=== PATIENT | male | born 1970 | race Caucasian/White ===

== ENCOUNTER 2023-10-13 20:21 | Inpatient (IN) | payer OTHER, SELFPAY ==
[2023-10-13] VITALS (10 sets, daily range): BP systolic 92–175; BP diastolic 66–82; BMI 36.5
--- NOTE | 2023-10-13 17:23 | ED.GENMED ---
History of Present Illness
<Linda Hyatt DRIER TRANSFER CAR OPERATOR - Last Filed: 10/13/23 21:42>
General
Chief Complaint: Breathing Problem
Source: patient
Exam Limitations: none
Time Seen by Provider: 10/13/23 17:23
Nursing documentation reviewed up to this point in time: agreed with
Travel History
Have you had any contact with someone who has COVID-19?: No
Do you have any symptoms of coronavirus? Fever > 100 degrees, chills, cough, shortness of breath, sore throat, loss of taste or smell, muscle aches, or headache?: No
History of Present Illness
History of Present Illness:
53-year-old male with history of HTN, HLD, alcohol induced hepatitis, thrombocytopenia, presents from his first visit to pulmonology Dr. Reyes's office for 7 weeks of cough and 5 weeks of shortness of breath. Hypoxemia. He states cough has been
nonproductive. 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 Denies fever, CP, abdominal pain. Has noted mild swelling right calf past week.
Past History
<Linda Hyatt DRIER TRANSFER CAR OPERATOR - Last Filed: 10/13/23 21:42>
Past History
ED Past Medical History: HTN
ED Past Surgical History: Orthopedic
Review of Systems
<Linda Hyatt DRIER TRANSFER CAR OPERATOR - Last Filed: 10/13/23 21:42>
Review of Systems
Allergies reviewed?: Yes
All Other Systems: ROS reviewed and negative except as documented in HPI and ROS
Constitutional: Denies fever
Respiratory: Reports cough and trouble breathing
Cardiac: Denies chest pain
ABD/GI: Denies abdominal pain or nausea
Musculoskeletal: Reports no symptoms
Skin: Reports no symptoms
Neurological: Reports no symptoms
Phy Exam
<Linda Hyatt DRIER TRANSFER CAR OPERATOR - Last Filed: 10/13/23 21:42>
Physical Exam
Physical Exam:
GENERAL: No acute distress. A&Ox3.
CONSTITUTIONAL: Afebrile.
EYES: clear, conjunctivae normal
ENMT: moist mucus membranes, Pharynx nl
RESPIRATORY: Regular respirations, nonlabored, Left lung CTA, absent BS R lung. Pulse ox 93% RA
CARDIOVASCULAR: Regular rate and rhythm, no murmurs, no rubs.
GI: Soft, nontender, normal BS
MUSCULOSKELETAL: Moves with ease. Well perfused. Patient
SKIN: Warm, dry, pink
PSYCH: Normal mood and affect. Well kept, interactive and appropriate
NEUROLOGIC: Awake, alert and oriented. No focal neurological deficits
Scores
<Linda Hyatt, DRIER TRANSFER CAR OPERATOR - Last Filed: 10/13/23 21:42>
Heart Failure Risk
Heart Failure Risk Score: Not Applicable
Course
<Linda Hyatt, DRIER TRANSFER CAR OPERATOR - Last Filed: 10/13/23 21:42>
Orders/Labs/Results
Orders:
Orders
10/13/23 17:37
0.9% Sodium Chloride 1000 ml [Nss] 1,000 ml IV BOLUS
10/13/23 17:44
CR Chest Portable - 1 View Urgent
Comment:
Reason For Exam: no BS right lung
Reason Study Needs to be Portable: Patient Unstable
10/13/23 17:45
US Periph Venous LOWER Ext RT Urgent
Comment:
Reason For Exam: swellilng, SOB
10/13/23 17:47
Complete Blood Count/With Diff Urgent
Comprehensive Metabolic Panel Urgent
PTT Urgent
Prothrombin Time Urgent
10/13/23 17:48
CT Chest Pe Study Urgent
Comment:
Reason For Exam: SOB, R lung ketty out, R calf swelling, hypoxia
10/13/23 18:10
0.9% Sodium Chloride 500 ml [Nss] 500 ml IV BOLUS
10/13/23 20:01
Admit/Transfer Patient As Directed
Co-Sign Provider:
Level of Care: Inpatient admission
Assign to:: IMU- Intermediate Care
Physician / Group: [place]
Diagnosis: Large R Pleural Effusion
Reason for Hospitalization: Large R Pleural Effusion
Expected length of stay greater than two midnights?: Yes
ELOS- Estimated Length of Stay in days: 2
I certify the patient meets the requirements for IP care: Yes
10/13/23 20:14
Code Status As Directed
Resuscitation Status: Full Code
10/16/23 11:00
DC Protocol for Telemetry ONCE
Abnormal Lab Results
10/13/23
17:47
RBC 3.80 L 10^6/uL
(4.70-6.10)
Hct 36.5 L %
(39.0-52.0)
MCV 96.1 H fL
(80.0-94.0)
MCH 34.7 H pg
(27.0-31.0)
RDW 15.6 H %
(11.5-14.5)
Plt Count 78 L 10^3/uL
(130-400)
Monocytes % 9.8 H %
(1.7-9.3)
PT 23.0 H Sec
(11.4-14.6)
APTT 42.4 H Sec
(23.4-35.0)
Creatinine 0.6 L mg/dL
(0.7-1.3)
Total Bilirubin 5.2 H mg/dl
(0.2-1.3)
AST 89 H U/L
(17-59)
ALT 51 H U/L
(0-50)
Alkaline Phosphatase 155 H U/L
(38-126)
Total Protein 8.3 H g/dl
(6.3-8.2)
Albumin 3.3 L g/dl
(3.5-5.0)
10/13/23 17:47
10/13/23 17:47
Vital Signs
Initial and Last Documented VS:
Initial Vital Signs
Temp Pulse Resp BP Pulse Ox
98.4 F 95 18 153/79 93
10/13/23 17:15 10/13/23 17:15 10/13/23 17:15 10/13/23 17:15 10/13/23 17:15
Last Documented Vital Signs
Temp Pulse Resp BP Pulse Ox
97.4 F 96 30 141/77 96
10/13/23 20:41 10/13/23 21:25 10/13/23 21:25 10/13/23 21:25 10/13/23 21:25
Corporate Legal Secretary consulted with Physician
Corporate Legal Secretary consulted with physician?: Yes
Name of Physician Consulted: Jayesh
<Gurinder Mcconnell MD - Last Filed: 10/13/23 19:41>
Orders/Labs/Results
Orders:
Orders
10/13/23 17:37
0.9% Sodium Chloride 1000 ml [Nss] 1,000 ml IV BOLUS
10/13/23 17:44
CR Chest Portable - 1 View Urgent
Comment:
Reason For Exam: no BS right lung
Reason Study Needs to be Portable: Patient Unstable
10/13/23 17:45
US Periph Venous LOWER Ext RT Urgent
Comment:
Reason For Exam: swellilng, SOB
10/13/23 17:47
Complete Blood Count/With Diff Urgent
Comprehensive Metabolic Panel Urgent
PTT Urgent
Prothrombin Time Urgent
10/13/23 17:48
CT Chest Pe Study Urgent
Comment:
Reason For Exam: SOB, R lung ketty out, R calf swelling, hypoxia
10/13/23 18:10
0.9% Sodium Chloride 500 ml [Nss] 500 ml IV BOLUS
10/13/23 20:01
Admit/Transfer Patient As Directed
Co-Sign Provider:
Level of Care: Inpatient admission
Assign to:: IMU- Intermediate Care
Physician / Group: [place]
Diagnosis: Large R Pleural Effusion
Reason for Hospitalization: Large R Pleural Effusion
Expected length of stay greater than two midnights?: Yes
ELOS- Estimated Length of Stay in days: 2
I certify the patient meets the requirements for IP care: Yes
10/13/23 20:14
Code Status As Directed
Resuscitation Status: Full Code
10/16/23 11:00
DC Protocol for Telemetry ONCE
Abnormal Lab Results
10/13/23
17:47
RBC 3.80 L 10^6/uL
(4.70-6.10)
Hct 36.5 L %
(39.0-52.0)
MCV 96.1 H fL
(80.0-94.0)
MCH 34.7 H pg
(27.0-31.0)
RDW 15.6 H %
(11.5-14.5)
Plt Count 78 L 10^3/uL
(130-400)
Monocytes % 9.8 H %
(1.7-9.3)
PT 23.0 H Sec
(11.4-14.6)
APTT 42.4 H Sec
(23.4-35.0)
Creatinine 0.6 L mg/dL
(0.7-1.3)
Total Bilirubin 5.2 H mg/dl
(0.2-1.3)
AST 89 H U/L
(17-59)
ALT 51 H U/L
(0-50)
Alkaline Phosphatase 155 H U/L
(38-126)
Total Protein 8.3 H g/dl
(6.3-8.2)
Albumin 3.3 L g/dl
(3.5-5.0)
10/13/23 17:47
10/13/23 17:47
Vital Signs
Initial and Last Documented VS:
Initial Vital Signs
Temp Pulse Resp BP Pulse Ox
98.4 F 95 18 153/79 93
10/13/23 17:15 10/13/23 17:15 10/13/23 17:15 10/13/23 17:15 10/13/23 17:15
Last Documented Vital Signs
Temp Pulse Resp BP Pulse Ox
97.4 F 96 30 141/77 96
10/13/23 20:41 10/13/23 21:25 10/13/23 21:25 10/13/23 21:25 10/13/23 21:25
<Linda Hyatt DRIER TRANSFER CAR OPERATOR - Last Filed: 10/13/23 21:42>
MDM/Problems Addressed
Differential Diagnosis Includes:
Pneumothorax, PE, PNA, DVT
MDM/Problems Addressed:
53-year-old male with history of HTN, HLD alcohol induced hepatitis, thrombocytopenia, presents from his first visit to pulmonology Dr. Reyes's office for 7 weeks of cough and 5 weeks of shortness of breath. Hypoxemia. He states cough has been
nonproductive. 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 Denies fever, CP, abdominal pain. Has noted mild swelling right calf past week.
Afebrile
Absent BS right lung
Pulse ox 93% RA placed on 2 L nasal cannula
Portable CXR: Right lung ketty out. No pneumothorax.
CBC: No clinically significant abnormality. Consistent with his baseline thrombocytopenia
CMP: No clinically significant abnormality. Consistent with his previous mild elevation of liver enzymes
6:55 PM radiologist texted: 'the CT of the chest is nondiagnostic for PE. He can�t hold his breath. If that massive right floor of fusion gets drained, and there is still high clinical concern for PE, can repeat the study then, when he might be able
to hold his breath.'
7:04 pm
IR notified of need to drain this significant pleural effusion
Hospitalist notified of admission.
<Linda Hyatt, DRIER TRANSFER CAR OPERATOR - Last Filed: 10/13/23 21:42>
*Critical Care Note
Total Time (30-74mins, 75-104mins- exclusive of procedures): Not Applicable
ED Attending Note
<Linda Hyatt, DRIER TRANSFER CAR OPERATOR - Last Filed: 10/13/23 21:42>
-
Portions of this chart may have been created with voice recognition software.� Occasional wrong word or��sound alike� substitutions may have occurred due to the inherent limitations of voice recognition software.
<Gurinder Mcconnell MD - Last Filed: 10/13/23 19:41>
ED Attending Note
Patient seen and examined by attending physician: Yes
I performed the substantive portion of visit, reviewed & personally made and approve the management plan that is documented in note by myself or EUGENIO.: Yes
ED Attending Note:
Patient presents with shortness of breath ongoing for months. Saw pulmonary today. Decreased breath sounds in the right sent for further evaluation. Also right leg swelling. On exam patient is nontoxic however room air pulse ox 91 to 92%. He
has no breath sounds on the right. He has mild right leg swelling no warmth or erythema. Heart regular rate and rhythm.
First concern was effusion versus pneumothorax. Chest shows a large complete opacification of the right lung consistent with a large effusion. CT scan was ordered which showed a large effusion. Leg ultrasound was also ordered. Discussed with IR
who will come in for chest thoracentesis. Admission to hospitalist.
Discharge Plan
Departure
Patient Disposition: Admit
Date of Disposition: 10/13/23
Time of Disposition: 18:53
Presentation/result/management discussed w/ accepting MD/DO: Hospitalist
Condition: Serious
Discharge Problem:
Pleural effusion on right, Cirrhosis of liver
Interventions
Interventions:
*Risk Screen - Suicide Last Done: 10/13/23 17:21
*General Assessment Last Done: 10/13/23 17:54
*Neglect/Abuse Screening Last Done: 10/13/23 17:21
*ED COVID-19 Vaccine History Last Done: 10/13/23 17:15
ED- Cardiac Assessment Last Done: 10/13/23 17:54
ED- Pulmonary Assessment Last Done: 10/13/23 17:54
[2023-10-13 18:00] LABS: % Basophils 0.8 % (0-2); % Eosinophils 3.3 % (0-6); % Immature Granulocytes 0.3 % (0-0.5); % Lymphocytes 23.8 % (20.5-51.1); % Monocytes 9.8 % (1.7-9.3); Absolute Basophils 0.1 10^3/uL (0-0.2); Absolute Eosinophils 0.2 10^3/uL (0-0.7); Absolute Lymphocytes 1.5 10^3/uL (1.2-3.4); Absolute Monocytes 0.6 10^3/uL (0.1-0.6); Absolute Neutrophils 3.8 10^3/uL (1.4-6.5); Hematocrit 36.5 % (39.0-52.0); Hemoglobin 13.2 g/dL (13.0-18.0); Mean Corp Hgb Conc. 36.2 g/dL (33.0-37.0); Mean Corpuscular Hgb 34.7 pg (27.0-31.0); Mean Corpuscular Volume 96.1 fL (80.0-94.0); Mean Platelet Volume 9.6 fL (7.4-10.4); Nucleated Red Blood Cells % 0 % (-); Platelet Count 78 10^3/uL (130-400); Red Cell Dist. Width 15.6 % (11.5-14.5); White Blood Cell Count 6.1 10^3/uL (4.8-10.8)
[2023-10-13 18:11] LABS: INR 2.05
[2023-10-13 18:12] LABS: APTT 42.4 Sec (23.4-35.0)
[2023-10-13] MEDS: NSS 500 IV (18:16)
[2023-10-13 18:17] LABS: ALT (SGPT) 51 U/L (0-50); AST (SGOT) 89 U/L (17-59); Albumin 3.3 g/dl (3.5-5.0); Alkaline Phosphatase 155 U/L (38-126); Blood Urea Nitrogen 10 mg/dl (9-20); Calcium 8.9 mg/dl (8.4-10.2); Carbon Dioxide 22 mmol/L (22-30); Chloride 106 mmol/L (98-107); Glucose 98 mg/dl (70-99); Potassium 3.9 mmol/L (3.5-5.1); Sodium 135 mmol/L (135-145); Total Bilirubin 5.2 mg/dl (0.2-1.3); Total Protein 8.3 g/dl (6.3-8.2); eGFR > 60.00
--- NOTE | 2023-10-13 20:21 | HPS.HSE ---
Family Physician
-
Family Physician: NOT KNOW UNKNOWN - PT DOES
Chief Complaint
-
Cough / SOB
History of Present Illness
Patient is a 53y M with PMH significant for alcoholic cirrhosis who presents to ED complaining of cough and SOB. Patient notes that he was hospitalized here in June and diagnosed with alcoholic liver disease. He has not had any alcohol since
that time. Patient reports development of hacking, tickly cough about 7 weeks ago. This is worse with activity, talking, etc. No fevers / chills. No chest pain, back pain, etc. Pateint reports development of dyspnea - mostly with activity -
about 5 weeks ago. This has gradually progressed since that time.
Patient notes that he is not limited in most activities; however, he takes a very long time to recover following exertion.
Patient denies any N/V/D, abdominal pain, etc.
He has noted some asymmetric swelling in the RLE over the past week or so.
Patient was seen today by Pulmonary and was sent to the ED for further evaluation.
Medical History
Past Medical History
Past Medical History: Reports Other
Additional Past Medical History:
Alcoholic Cirrhosis with Thrombocytopenia, Coagulopathy and Ascites
Essential Hypertension
Hyperlipidemia
Past Surgical History: Reports Other
Additional Past Surgical History:
Right Forearm ORIF
Social History
Tobacco: Non-smoker
Alcohol: Other (History of significant alcohol intake. Quit drinking entirely 4 months ago.)
Drug: None
Family History
Family History: Not pertinent
Allergies / Home Medications
Allergies reflects when Allergies were last updated in [facility].
Home Medications with original date entered in [facility]
Allergy/Medication List:
Allergies
Allergy/AdvReac Type Severity Reaction Status Date / Time
No Known Allergies Allergy Unverified 06/30/23 08:00
Home Medications
folic acid 1 mg tablet 1 mg PO DAILY #0 tabs 07/02/23
thiamine HCl (vitamin B1) 100 mg tablet 100 mg PO BID #0 tabs 07/02/23
olmesartan 20 mg tablet 20 mg PO DAILY 10/13/23
psyllium husk (with sugar) 2 gram oral wafer (Metamucil Fiber Thin) 2 wafer PO DAILY PRN constipation 10/13/23
Review of Systems
-
History Source: Patient
A 12 point ROS was completed and negative except as noted: Yes
Constitutional: Reports Fatigue; Denies Fever or Chills
EENT: Denies Sore Throat
Respiratory: Reports Cough and Trouble Breathing; Denies Hemoptysis
Cardiac: Denies Chest Pain or Palpitations
Abdomen/GI: Reports Other (Abd distention.); Denies Abdominal Pain, Nausea, Vomiting or Diarrhea
: Denies Dysuria, Frequency or Flank Pain
Musculoskeletal: Reports Edema
Neurological: Denies Dizzy or Headache
Psych: Denies Depression or Anxiety
Physical Exam
Vital Signs
Vital Signs
Temp Pulse Resp BP Pulse Ox
98.4 F 89 25 162/76 94
10/13/23 17:15 10/13/23 19:45 10/13/23 19:45 10/13/23 19:40 10/13/23 19:45
Physical Exam
General: Other (53y M in mild distress due to dyspnea.)
HEENT: Moist mucous membranes, PERRLA and Other (Thick neck.)
Respiratory: Other (Markedly diminished breath sounds throughout the R hemithorax with dullness to percussion essentially the entire way up.)
Cardiac: S1/S2 and Regular Rhythm; No Murmur
GI: Other (Distended abdomen. Not tender. Pos BS. No ecchymosis.)
Musculoskeletal: No Clubbing, No Cyanosis and Other (Trace - 1+ edema in the RLE specifically. No calf tenderness / cords. No ecchymosis.)
Neuro: AO x 3
Laboratory Results
-
10/13/23 17:47
10/13/23 17:47
Laboratory Results
PT 23.0 Sec (11.4-14.6) H 10/13/23 17:47
INR 2.05 10/13/23 17:47
APTT 42.4 Sec (23.4-35.0) H 10/13/23 17:47
Total Bilirubin 5.2 mg/dl (0.2-1.3) H 10/13/23 17:47
AST 89 U/L (17-59) H 10/13/23 17:47
ALT 51 U/L (0-50) H 10/13/23 17:47
Alkaline Phosphatase 155 U/L (38-126) H 10/13/23 17:47
Impression/Plan
-
A/P: Patient is a 53y M with PMH significant for alcoholic cirrhosis who presents to ED for evaluation of cough and SOB x several weeks.
Large Right Pleural Effusion
- Admit for further evaluation and treatment.
- IR plans for thoracentesis / chest tube placement this evening.
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
- Follow for results of procedure. Chest tube management per IR / Pulm.
- Follow-up results of fluid analysis.
- Follow for clinical improvement s/p fluid removal.
Alcoholic Cirrhosis with Ascites, Thrombocytopenia and Coagulopathy
- LFTs, etc seem similar to prior values.
- Given significant ascites and now pleural fluid - will begin diuretic regimen with furosemide and spironolactone.
- Follow I/Os, daily weights, etc.
- Adjust BP med regimen as needed after diuretic initiation.
- GI evaluation.
- MELD 3.0 = 21.
- Follow labs, INR, etc daily.
RLE Swelling
- US negative for DVT.
- ? related to general fluid overload from ascites - though not sure why this is asymmetric.
- Follow for any changes.
Benign Hypertension
- Stable. Continue olmesartan with holding parameters.
- Start furosemide / spironolactone as noted above.
Obesity due to excess calories
- Affects all aspects of care.
- Patient reports weight loss since cessation of alcohol in June.
- Continue healthy lifestyle and exercise with goal of weight loss.
DVT Prophylaxis: SCDs
Code Status: Full
--- NOTE | 2023-10-13 21:05 | W.PN.UPDATE ---
Update Note
Progress Note Update
Procedure: R chest tube placement
- 12F R chest tube placed with US and fluoro guidance
- Extremely large effusion. 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 He does have a subacute appearing right anterolateral rib fracture, possibly related?
- Pt became symptomatic after removal of 1L of fluid. I presume this fluid has been building up for weeks, there recommend slow removal over the next day.
- Chest tube orders placed.
[2023-10-13 22:10] LABS: Body Fluid pH 7.48
[2023-10-13 22:14] LABS: Body Fluid Mononuclear 82.5 %; Body Fluid Polymorphonuclear 17.5 %; Body Fluid WBC 355 /CUMM
[2023-10-13 22:16] LABS: Body Fluid Second Tech DB
[2023-10-13 22:22] LABS: Body Fluid Amylase 30 U/L; Body Fluid Glucose 93 mg/dl; Body Fluid LDH 99 U/L; Body Fluid Protein 2.3 g/dl
[2023-10-13 22:38] LABS: LDH 231 U/L (120-246)
[2023-10-13 22:55] LABS: TSH Reflex To Free T4 3.63 uIU/ml (0.47-4.68)
[2023-10-14] VITALS (10 sets, daily range): BP systolic 120–172; BP diastolic 65–98; BMI 36.0
[2023-10-14 03:53] LABS: Hematocrit 35.7 % (39.0-52.0); Hemoglobin 12.6 g/dL (13.0-18.0); Mean Corp Hgb Conc. 35.3 g/dL (33.0-37.0); Mean Corpuscular Hgb 34.1 pg (27.0-31.0); Mean Corpuscular Volume 96.7 fL (80.0-94.0); Mean Platelet Volume 9.7 fL (7.4-10.4); Platelet Count 77 10^3/uL (130-400); Red Blood Cell Count 3.69 10^6/uL (4.70-6.10); Red Cell Dist. Width 15.4 % (11.5-14.5); White Blood Cell Count 5.6 10^3/uL (4.8-10.8)
[2023-10-14 04:02] LABS: INR 2.09; PT 23.3 Sec (11.4-14.6)
[2023-10-14 04:17] LABS: ALT (SGPT) 53 U/L (0-50); AST (SGOT) 92 U/L (17-59); Albumin 3.1 g/dl (3.5-5.0); Alkaline Phosphatase 132 U/L (38-126); Blood Urea Nitrogen 11 mg/dl (9-20); Calcium 8.8 mg/dl (8.4-10.2); Carbon Dioxide 22 mmol/L (22-30); Chloride 107 mmol/L (98-107); Estimated Creatinine Clearance > 125 ml/min; Glucose 97 mg/dl (70-99); Magnesium 1.9 mg/dl (1.6-2.3); Phosphorus 4.3 mg/dl (2.5-4.5); Potassium 4.1 mmol/L (3.5-5.1); Sodium 136 mmol/L (135-145); Total Bilirubin 6.2 mg/dl (0.2-1.3); Total Protein 7.9 g/dl (6.3-8.2); eGFR > 60.00
--- NOTE | 2023-10-14 05:57 | PTCARENOTE ---
Received patient from [facility] overnight. Right chest tube with 1335 punch colored drainage. No complaints of pain or discomfort. Remains on 4 liters NC.
--- NOTE | 2023-10-14 07:39 | PTCARENOTE ---
Received this am- Right chest tube oasis canister full/ changed out unclamped allowed 700ml more serosanguineous drainage out and reclamped. Pt c/o of new pain right side- d/w [facility]- BP 150/75 will monitor closely.
[2023-10-14] MEDS: VITAMIN B1 100 MG PO ×2 (08:54→20:11)
[2023-10-14] MEDS: BENICAR 20 MG PO (08:54)
[2023-10-14] MEDS: PROTONIX IV 40 MG IV (08:54)
[2023-10-14] MEDS: ALDACTONE 25 MG PO (08:54)
[2023-10-14] MEDS: LASIX 40 MG PO ×2 (08:54→17:36)
[2023-10-14] MEDS: FOLVITE 1 MG PO (08:54)
[2023-10-14] MEDS: NSS (PRESERVATIVE FREE) 10 ML IV (08:55)
--- NOTE | 2023-10-14 09:06 | PTCARENOTE ---
Unclamped CT, drained 1L drainage and reclamped. Pt reports increased intense pain 7/10 for 5 min post then resolved.
--- NOTE | 2023-10-14 09:28 | CON.PUL ---
Consultation
Consultation Request
Date/Time Consultation Requested: 10/13/2023 - 2149
Date/Time Consultation Performed: 10/14/2023 - 919
Requesting Provider: Dr. Wood
Performing Provider: Dr. Ibarra
Reason for Consultation: R-pleural effusion s/p chest tube
Medical History
-
Chief Complaint: SOB + cough x 6 weeks
History of Present Illness:
53-year-old male with a past medical history of alcoholic cirrhosis, hypertension and anal condyloma who presents with SOB plus cough X 6 weeks. Patient was sent to the ER from our office on 10/13/2023 due to shortness of breath with hypoxia. He had
a 6 MWT showing he needs 1 L O2 with ambulation and spirometry showed severe restriction. He also had RLE swelling. In the ER he was saturating 93% on room air, was otherwise afebrile to 98.4 �F, BP 143/79, RR: 18, and pulse rate 95. Labs showed
Hb 13.2, platelets 78, INR 2.05, T. bili 5.2, elevated LFTs with ALT 51, AST 89, ALP 155, and albumin 3.3. CXR showed complete opacification of the right hemithorax with mass effect due to suspected large right-sided pleural effusion with
underlying mass/pneumonia not excluded. RLE ultrasound was negative for DVT. CT of the chest showed a very large right-sided pleural effusion with midline shift and and a small�moderate mount of ascites with nodular external contour of the liver
suggestive of cirrhosis. IR inserted a chest tube into the right hemithorax and serosanguineous fluid was removed. Fluid studies showed transudative fluid with WBC 355 and PMNs 17.5%. Fluid culture and cytology also sent. Follow-up CXR done on
morning of 10/13 showed improvement in the right-sided pleural effusion however there is still a persistently large right-sided pleural effusion. Pulmonary now consulted for further recommendations.
When I saw the patient he was sitting up in bed in no acute distress with significant other at bedside. Patient says that he is breathing much better now and his shortness of breath is markedly improved and his cough is almost fully gone. He is
shortness of breath prior to today was with activity and not at rest. He is currently on room air breathing comfortably. He is eager to get the chest tube removed and go home. He admits that he stopped drinking several months ago. His right
lower extremity edema has improved and he does not endorse having worsening abdominal distention over the last several days�weeks. He denies headache, chest pain, abdominal pain, fevers or chills.
PMhx: Alcoholic cirrhosis, hypertension, anal condyloma
PSHx: Right broken arm (ulna -treated in February 24, 1990), colonic polyp resection, anal condylomata surgery
Past Medical History
Past Medical History: Other (Above as per HPI)
Past Surgical History: Other (Above as per HPI)
Social History
Tobacco: Non-smoker
Alcohol: Former (Chronic alcoholic, quit drinking about 2 months ago)
Drug: None
Family History
Family History: Hypertension (Father)
Allergies / Home Medications
Allergies
Allergy/AdvReac Type Severity Reaction Status Date / Time
No Known Allergies Allergy Unverified 06/30/23 08:00
Home Medications
�Medication �Instructions �Recorded �Confirmed �Last Taken �Type
folic acid 1 mg tablet 1 mg PO DAILY #0 tabs 07/02/23 10/13/23 10/12/23 Rx
thiamine HCl (vitamin B1) 100 mg 100 mg PO BID #0 tabs 07/02/23 10/13/23 10/12/23 Rx
tablet
olmesartan 20 mg tablet 20 mg PO DAILY Blood Pressure 10/13/23 10/13/23 10/12/23 History
psyllium husk (with sugar) 2 gram 2 wafer PO DAILY PRN constipation 10/13/23 10/13/23 2 Days Ago History
oral wafer (Metamucil Fiber Thin) ~10/11/23
Review of Systems
-
History Source: Patient
All other systems: Negative unless noted
Vitals / Labs / Diagnostic Testing
Vital Signs
Temp Pulse Resp BP Pulse Ox
97.3 F 91 25 172/98 91
10/14/23 07:40 10/14/23 08:00 10/14/23 08:00 10/14/23 08:00 10/14/23 08:00
Lab Data
10/14/23 03:27
10/14/23 03:27
Laboratory Results
10/13/23 10/14/23
17:47 03:27
PT 23.0 H 23.3 H
INR 2.05 2.09
APTT 42.4 H
Diagnostic Testing:
Physical Exam
-
HEENT: Normocephalic
Cardiovascular: S1/S2 and Peripheral Edema (+1 and RLE; none seen in the LLE)
Respiratory: Wheeze (Negative), Rales (right middle lung field), Rhonchi (Negative) and Non-Labored Respirations
GI: Soft, Distended (Mildly), Non Tender, Normal Bowel Sounds and Other (Abdominal obesity)
Neurology: Awake and Alert
Skin: Warm and Dry
General: Respiratory Distress (Negative), Comfortable and Chills (Negative)
Assessment
-
Assessment: 53-year-old male with a past medical history of alcoholic cirrhosis, hypertension and anal condyloma who presents with SOB plus cough X 6 weeks. Patient was sent to the ER from our office on 10/13/2023 due to shortness of breath with
hypoxia. He had a 6 MWT showing he needs 1 L O2 with ambulation and spirometry showed severe restriction. He also had RLE swelling. In the ER he was saturating 93% on room air, was otherwise afebrile to 98.4 �F, BP 143/79, RR: 18, and pulse rate
95. Labs showed Hb 13.2, platelets 78, INR 2.05, T. bili 5.2, elevated LFTs with ALT 51, AST 89, ALP 155, and albumin 3.3. CXR showed complete opacification of the right hemithorax with mass effect due to suspected large right-sided pleural
effusion with underlying mass/pneumonia not excluded. RLE ultrasound was negative for DVT. CT of the chest showed a very large right-sided pleural effusion with midline shift and and a small�moderate mount of ascites with nodular external contour
of the liver suggestive of cirrhosis. IR inserted a chest tube into the right hemithorax and serosanguineous fluid was removed. Fluid studies showed transudative fluid with WBC 355 and PMNs 17.5%. Fluid culture and cytology also sent. Follow-up
CXR done on morning of 10/13 showed improvement in the right-sided pleural effusion however there is still a persistently large right-sided pleural effusion. Pulmonary now consulted for further recommendations.
Chronic conditions [employer]LE[employer]: Alcoholic cirrhosis, hypertension, anal condyloma
Impression:
#Right-sided pleural effusion with mass effect due to hepatohydrothorax from EtOH-cirrhosis
#Decompensated hepatic cirrhosis with ascites and right-sided hepatohydrothorax
#Hx of alcohol abuse - abstinent from EtOH for several months now
#Thrombocytopenia � due to history of cirrhosis
#Chronic anemia
#Transaminitis with hyperbilirubinemia
Plan:
- Unfortunately, a chest tube in setting of hepatohydrothorax is contraindicated. There is now high risk of the fluid not stopping, however in setting of SOB and how severe his R-effusion was with mass effect, I am glad the effusion was drained,
but perhaps a thoracentesis would have been ideal along with a paracentesis. He may ultimately still need a paracentesis
- For now, keep chest tube clamped as we have drained >3.5L since the chest tube was inserted, and he is at risk for re-expansion pulmonary edema (pt began to have right lower chest pain/RUQ pain today which is likely from the lung re-expanding)
- Check abd US and if ascites still more than mild-moderate then plan for paracentesis - this will ultimately help reduce his right sided pleural effusion
- Also starting lasix and aldactone is needed to help reduce third spacing - this was already started by GI
- Will re-open the chest tube to drainage tomorrow AM on low suction (-10 to -[id number]), with plans to hopefully remove the chest tube within the next 1-2 days
- If re-accumulation of pleural fluid is too rapid despite paracentesis, then will need to refer to IR for TIPS and consider transfer to tertiary care center for liver transplant evaluation
- Maintain SpO2 >90-94% with supplemental O2 as needed
- Incentive spirometer encouraged
- prn nebulized bronchodilators
- Repeat CXR in AM
- Trend LFTs and avoid hepatotoxic agents
- Replete electrolytes with K>4, Mg>2
- Maintain euglycemia with goal BG >100 and <180
- DVT ppx
Pulmonary service will continue to follow along.
Total time spent today was 75 minutes for this encounter. Time includes reviewing laboratory test/imaging results, reviewing pertinent medical records, obtaining and reviewing medical history, performing an appropriate exam, ordering medications,
tests and procedures. Time also includes documentation of this encounter, coordinating patient care and communicating with other healthcare professionals. Total time does not include separately billed tests performed on this date of service.
Data:
CXR 10-13-2023:
Interval development of complete opacification right hemithorax with mass effect and shift of the mediastinum toward the left.
Findings most likely represent a large right pleural effusion. Underlying mass and/or pneumonia is not excluded radiographically.
CTA Chest 10-13-2023:
Examination is nondiagnostic for pulmonary embolism.
Very large right pleural effusion with mass effect and midline shift. Collapse of the right lung.
No significant left pleural effusion.
Small to moderate amount of ascites in the visualized upper abdomen. Nodular external contour of the visualized liver, suggestive of cirrhosis. Splenomegaly is present, as seen on previous ultrasound of the abdomen.
If there are persistent clinical symptoms highly suggestive of pulmonary embolism after right-sided thoracentesis, a repeat CT examination with pulmonary embolism protocol could be performed.
--- NOTE | 2023-10-14 09:59 | CARDSERVLU ---
Echocardiogram with [facility] completed after protocol screening completed. Allergies verified.
Patent IV site: _Right antecubital site clear____
IV site flushed with 0.9% NaCl pre and post administration.
Diluted bolus method utilized to enhance visualization of ventricular rocha.
Total volume given: _4___ mL
Patient tolerated all procedures well without complications.
--- NOTE | 2023-10-14 10:26 | CON.GI ---
Addendum entered and electronically signed by Marsha Stover Do, MD 10/14/23 14:26:
I saw and examined the patient.
The RENT COLLECTOR's note was reviewed and I agree with the note.
Comment: Clive is a 53yo M with h/o ETOH cirrhosis MELD 22 with alcoholic hepatitis in 06/2023 who was admitted with SOB and found to have large R sided pleural effusion. He is known to Dr Prince/GI with planned EGD for EV screening 10/21. He
reports abstinence from ETOH for the past 4 months. He did undergo chest tube with over 1L removed 10/12 by IR. Exam VSS, diminished BS in R base, NTTP, NABS. Labs reviewed.
Impression
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
Chest tube with about 1L of pleural fluid removed 10/12 by IR
Neg light's criteria
Transudative
- Cirrhosis MELD 3.0 = 22
- ETOH abuse with acute alcoholic hepatitis in 06/2023
Last ETOH drink was 4 mo ago
- Elevated LFTs
High indirect bili suggestive of Gilbert
- h/o anal fissure
- H/o colonic polyps
Recommendations
- Monitor chest tube output, if declines anticipate removal prior to hosp d/c
- Lasix and aldactone started
- Monitor urine output
- Abd US with doppler given h/o mild CBD dilation in past, currently no abd pain
- He continues to decline MRI/MRCP due to severe claustrophobia
- Will need transplant hepatology evaluation outpt basis
- Continue ETOH abstinence
- Will cx his EGD appt OP on 10/21 with Suresh and plan to FU in office first
- Dose of vit K SQ today
Will follow with
Original Note:
Consultation
-
Date/Time Consultation Requested: 10/13/23 2200
Date/Time Consultation Performed: 10/14/23 1027
Requesting Provider: Dr. Wood
Performing Provider: Dr. Morin/ARRON Downs
Reason for Consultation: cirrhosis, ascites, hydrothorax
Medical History
Chief Complaint / HPI
Chief Complaint: SOB
History of Present Illness:
53-year-old male with past medical history significant for recently diagnosed liver cirrhosis suspected to be secondary to alcohol abuse, hypertension, hyperlipidemia, history of colon polyp, ETOH hepatitis in Jun 2023, who presented to the
emergency room with complaints of cough and shortness of breath. We are being asked to evaluate for decompensated liver cirrhosis with ascites and large right pleural effusion likely hydrothorax. Upon review of prior records, he is known to our
outpatient after being seen in the hospital in June for acute alcoholic hepatitis. Based on lab findings it was suspected that he had liver cirrhosis but he was referred outpatient for further workup. He was last seen in the office by "Manny"Suresh on 10/01/2023 for follow-up of his newly diagnosed liver cirrhosis and alcoholic hepatitis. He had outpatient FibroScan in August which did confirm F4 disease. Previously he was unable to tolerate MRI as he cannot lie flat. He was sent for
further lab testing to rule out hereditary hemochromatosis given his elevated ferritin in the 900s which are still pending. Hepatitis and autoimmune labs were done in the hospital when he was admitted back in June which were negative. He is
scheduled for EGD on 10/[address] Prince. He was advised on complete alcohol cessation. The patient has had approximately 5 weeks of dyspnea on exertion, cough with progression of symptoms as well as right lower extremity edema for the past
week. The patient was found to have a large right pleural effusion. He had a 12 Beninese right chest tube placed with interventional radiology. He also had a subacute appearing right anterior lateral rib fracture questionable possibly related.
After removal 1 L of fluids the patient became symptomatic therefore IR recommended slow removal over the next day. Also on chest CT and the visualized upper portion of the abdomen there was small to moderate amount of ascites. Nodular external
contour of the visualized liver suggestive of cirrhosis. Ultrasound the right lower extremity showed no evidence of DVT. The patient states that his shortness of breath is improved after chest tube placement. He denies any fevers, chills, nausea,
vomiting, melena, hematochezia, dysphagia or odynophagia. He denies any early satiety or unintentional weight loss. From a GI standpoint he states that he is feeling well. He has been abstinent of alcohol since June.
Past Medical History
Past Medical History: HTN, Hypercholesterolemia and Other (cirrhosis, ETOH hepatitis, anal condyloma, colon polyps)
Past Surgical History: Orthopedic (right ulna repair) and Other (anal condyloma excision)
Social History
Tobacco: Non-Smoker
Alcohol: Other (4-10 beers several days per week, Quit 4 months ago.)
Drug: None
Personal: Other (girlfriend)
Living: Other (Significant other, girlfriend)
Employment: Employed
Family History
Family History: Other (no family hx liver disease, no family gastrointestinal malignancy or IBD)
Allergies / Home Medications
Allergy/AdvReac Type Severity Reaction Status Date / Time
No Known Allergies Allergy Unverified 06/30/23 08:00
�Medication �Instructions �Recorded
folic acid 1 mg tablet 1 mg PO DAILY #0 tabs 07/02/23
thiamine HCl (vitamin B1) 100 mg 100 mg PO BID #0 tabs 07/02/23
tablet
olmesartan 20 mg tablet 20 mg PO DAILY Blood Pressure 10/13/23
psyllium husk (with sugar) 2 gram 2 wafer PO DAILY PRN constipation 10/13/23
oral wafer (Metamucil Fiber Thin)
Review of Systems
-
All other systems: A 12 pt ROS was Negative except as stated above in HPI
Vital Signs
Temp Pulse Resp BP Pulse Ox
97.3 F 91 25 172/98 91
10/14/23 07:40 10/14/23 08:00 10/14/23 08:00 10/14/23 08:00 10/14/23 08:00
Physical Exam
Exam
General: Well Developed and Well Nourished
HEENT: Other (icteric)
Respiratory: Clear (anterior exam ) and Other (chest tube right)
Cardiac: Regular Rhythm
GI: Soft, Non Tender, Non Distended and Normal Bowel Sounds
Musculoskeletal: No Edema
Skin: Warm and Dry
Neuro: AO x 3
Psych: Calm
Results
WBC 5.6 10^3/uL (4.8-10.8) 10/14/23 03:27
Hgb 12.6 g/dL (13.0-18.0) L 10/14/23 03:27
Hct 35.7 % (39.0-52.0) L 10/14/23 03:27
MCV 96.7 fL (80.0-94.0) H 10/14/23 03:27
Plt Count 77 10^3/uL (130-400) L 10/14/23 03:27
Absolute Neuts (auto) 3.8 10^3/uL (1.4-6.5) 10/13/23 17:47
PT 23.3 Sec (11.4-14.6) H 10/14/23 03:27
INR 2.09 10/14/23 03:27
APTT 42.4 Sec (23.4-35.0) H 10/13/23 17:47
Sodium 136 mmol/L (135-145) 10/14/23 03:27
Potassium 4.1 mmol/L (3.5-5.1) 10/14/23 03:27
Chloride 107 mmol/L (98-107) 10/14/23 03:27
Carbon Dioxide 22 mmol/L (22-30) 10/14/23 03:27
BUN 11 mg/dl (9-20) 10/14/23 03:27
Creatinine 0.6 mg/dL (0.7-1.3) L 10/14/23 03:27
Calcium 8.8 mg/dl (8.4-10.2) 10/14/23 03:27
Total Bilirubin 6.2 mg/dl (0.2-1.3) H 10/14/23 03:27
AST 92 U/L (17-59) H 10/14/23 03:27
ALT 53 U/L (0-50) H 10/14/23 03:27
Alkaline Phosphatase 132 U/L (38-126) H 10/14/23 03:27
Diagnostic Image Results:
CT chest 10/13/2023:
IMPRESSION: Examination is nondiagnostic for pulmonary embolism.
Very large right pleural effusion with mass effect and midline shift. Collapse of the right lung.
No significant left pleural effusion.
Small to moderate amount of ascites in the visualized upper abdomen. Nodular external contour of the visualized liver, suggestive of cirrhosis. Splenomegaly is present, as seen on previous ultrasound of the abdomen.
If there are persistent clinical symptoms highly suggestive of pulmonary embolism after right-sided thoracentesis, a repeat CT examination with pulmonary embolism protocol could be performed.
Electronically signed by Ceasar Chou MD 10/13/2023 6:57
Prior GI Procedures:
EGD: none --> Scheduled 10/22/[address] Prince for Variceal Screening
Colonoscopy: 08/2022-� toña - Three 2 to 6 mm polyps in the cecum, removed with a
�� � � � � � � � � � � cold snare. Resected and retrieved.
�� � � � � � � � � � � - One 6 mm polyp at the hepatic flexure, removed with
�� � � � � � � � � � � a cold snare. Resected and retrieved.
�� � � � � � � � � � � - One 3 mm polyp at the splenic flexure, removed with
�� � � � � � � � � � � a cold snare. Resected and retrieved.
�� � � � � � � � � � � - The examination was otherwise normal
bx TA polyps
Assessment / Plan
-
53-year-old male with past medical history significant for recently diagnosed liver cirrhosis suspected to be secondary to alcohol abuse, hypertension, hyperlipidemia, history of colon polyp, ETOH hepatitis in Jun 2023, who presented to the
emergency room with complaints of cough and shortness of breath. We are being asked to evaluate for decompensated liver cirrhosis with ascites and large right pleural effusion likely hydrothorax. The patient has had approximately 5 weeks of dyspnea
on exertion, cough with progression of symptoms as well as right lower extremity edema for the past week. The patient was found to have a large right pleural effusion. He had a 12 Beninese right chest tube placed with interventional radiology. He
also had a subacute appearing right anterior lateral rib fracture questionable possibly related. After removal 1 L of fluids the patient became symptomatic therefore IR recommended slow removal over the next day. Also on chest CT and the
visualized upper portion of the abdomen there was small to moderate amount of ascites. Nodular external contour of the visualized liver suggestive of cirrhosis. Ultrasound the right lower extremity showed no evidence of DVT. The patient states
that his shortness of breath is improved after chest tube placement. He denies any fevers, chills, nausea, vomiting, melena, hematochezia, dysphagia or odynophagia. He denies any early satiety or unintentional weight loss. From a GI standpoint he
states that he is feeling well. He has been abstinent of alcohol since June. MELD 3.0-> 22. WBC 5.6, hemoglobin 12.6, hematocrit 35.7, platelets 77, PT 23.3, INR 2.09, sodium 136, potassium 4.1, BUN 11, creatinine 0.6, total bilirubin 6.2 with a
direct of 2.0, AST 92, ALT 53, alk phos 132, albumin 3.1
Impression:
Cirrhosis, new trace ascites on imaging
Hx ETOH hepatitis in Jun 2023_> Patient states he has not had ETOH since then
Large right pleural effusion-> s/p thoracentesis and chest tube
Elevated LFTs with Bili elevation mostly indirect, but slightly higher from prior. Patient denies any ETOH in 4 months. Will check US Abd with dopplers.
Plan:
-Patient already started on Diuretics, Lasix 40 mg po BID and Aldactone 25 mg po daily.
-Continue Pantoprazole 40 mg daily
-Obtain US Abd as patient had last one in Jun that showed common bile duct measures 7.3 mm, which is considered dilated in a 53-year-old, with top normal value considered 6 mm. Will also add dopplers. Patient cannot tolerate MRI.
-Recommend 2 gm Na diet
-Patient is scheduled for EGD for variceal screening with Dr. Prince on 10/22/23, this will most likely need to be postponed.
-Continue ETOH abstinence
-Patient was given Vit K 10 mg by Internal Medicine.
- CBC, BMP, LFT, INR in am
-Further recommendations to be forthcoming
-
-
Thank you for consultation and allowing me to participate in the patient's care. Please call the investment professional GI physician during the after hours with any questions or concerns.
[2023-10-14] MEDS: MEPHYTON 10 MG PO (11:04)
--- NOTE | 2023-10-14 12:50 | PTCARENOTE ---
1130 unclamped drained 500ml within 5 min and reclamped - some coughing noted but not intense pain like prior drainage. D/w Dr. Ibarra leave clamped for now.
--- NOTE | 2023-10-14 16:26 | CM ---
Patient with Dx Large Right Pleural Effusion, Alcoholic Cirrhosis with Ascites, Thrombocytopenia and Coagulopathy, RLE Swelling, Obesity. Room air. Chest tube.
Met with patient who resides with his SO Laxmi in a 2 story house with 2 SWATI.
The patient has been independent in ADLs and ambulation.
He was working prior to admission.
The patient has no DME, prior VN.
[facility] - [facility] [place]
Pharmacy - [facility]
No CM d/c needs identified.
Plan home.
--- NOTE | 2023-10-14 18:14 | W.PN.HOSP.TC ---
Addendum entered and electronically signed by Titi King MD 10/14/23 19:41:
Attending Addendum-
I saw and evaluated the patient. I reviewed the resident�s note and agree with findings and plan as documented in the resident�s note. States breathing has improved. Has pain @ CT site. Has non productive cough. Denies fevers chills. Full 12 point
ROS reviewed and negative except as documented. Exam: Vitals reviewed in chart GEN- NAD heart RRR lungs no BS RLL CT in place draining copious amounts of fluid abd soft pos fluid wave LE +1 pitting edema Rt>left Neuro AAO x 3 no tremor/asterixis
Plan:
Large Right Pleural Effusion
- SP IR thoracentesis unclear why chest tube placed immediately- 1 L removed until pt got symptomatic
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
- Chest tube management per Pulm - putting out significant amounts of fluid (-8L)
- transudate-secondary to cirrhosis await path
Alcoholic Cirrhosis with Ascites, Thrombocytopenia and Coagulopathy
- LFTs increased
- Screening endoscopy as an OP
- cont furosemide and spironolactone weight decreased 7kgs
- Follow I/Os, daily weights, etc.
- GI input appreciated - for transplant eval as OP.
- sober x 4 months
- MELD-Na = 23.
- Maddreys- 46- d/w GI re steroids
- vitamin k given x 1
- Follow labs, INR, etc daily.
RLE Swelling
- US negative for DVT.
Benign Hypertension
- Stable. Continue olmesartan with holding parameters.
- cont furosemide / spironolactone as noted above.
Obesity due to excess calories
- Affects all aspects of care.
- Patient reports weight loss since cessation of alcohol in June.
- Continue healthy lifestyle and exercise with goal of weight loss.
DVT Prophylaxis: SCDs
Code Status: Full
Dispo- DC to tele
Time spent coordinating care, review of plan of care with resident, review of records, med rec, consults, notes, labs, rads, d/w nursing and girlfriend � 65 mins
Original Note:
Today's Communication/Plan
-
Ultrasound of the abdomen
vitamin K 10 Mg stat
Morphine for pain
Downgrade to telemetry
Monitor inputs and outputs
Monitor chest tube drainage.
Assessment / Plan
Assessment / Plan
Impression-
53-year-old male with PMHx of alcoholic hepatitis, hypertension, hyperlipidemia, and thrombocytopenia presents to the hospital with gradual onset of cough over 7 weeks and shortness of breath x 5 weeks.
Diagnosed with right-sided pleural effusion. Alcoholic cirrhosis.
Plan-
Large right-sided pleural effusion-
Chest tube inserted yesterday and about 1 L of fluid drained.
Patient reported no symptoms after 1 L of fluid drained. Chest tube collection overnight-4950 mL. Chest tube collection today-2500 mL x 1130 a.m.
Clamping trial initiated at 11:30 AM as per pulmonology.
Pleural fluid analysis suggestive of transudate.
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
Alcoholic cirrhosis with ascites-
Total bilirubin at 6.2, direct bilirubin at 2.0.
AST ALT elevated than baseline. Serum LDH within normal limits. Alkaline phosphatase elevated as well
On diuresis regimen with furosemide and spironolactone.
Trend potassium levels. GI evaluation-F4 disease on FibroScan in outpatient. Patient refused MRI due to being extremely claustrophobic.
Previous ultrasound was in June 2023. Repeat ultrasound today.
Monitor I's and O and daily weights. MELD score 21. Maddrey's discriminant function score from alcoholic hepatitis-46.2.
Patient will likely benefit from glucocorticoid therapy.
GI ordered an ultrasound with Doppler. Trend LFTs.
GI recommends outpatient evaluation by transplant hepatology for liver transplant.
Coagulopathy--
In the setting of alcoholic liver disease, elevated PT levels and thrombocytopenia a diagnosis of coagulopathy given.
Vitamin K 10 mg oral given.Platelet count at 77.
Monitor PT levels and platelet count. INR within normal limits.
Anemia of chronic disease-
Multifactorial-secondary to alcoholic liver disease vs thiamine folate deficiency.
Patient is on oral folate and thiamine supplementation.
Vitamin B12 levels within normal limits.
Constipation-
patient is on Metamucil.
In the setting of volume overload and fluid restriction Metamucil may exacerbate constipation.
consider switching to laxative in the a.m. tomorrow.
Right lower extremity edema-
ultrasound negative for DVT
May be secondary to cirrhosis.
Benign hypertension-
Continue olmesartan with holding parameters
Furosemide and spironolactone as above
Obesity due to excess calories-continue healthy lifestyle.
DVT prophylaxis-SCDs
CODE STATUS full
Anticipated Discharge: > 48 hours
Subjective/Interval History
-
Date of Service: October 14, 2023
Patient feels uncomfortable, throbbing pain 7 out of 10 at the site of chest tube insertion.
Patient feels fine today. Shortness of breath resolved, sitting comfortably in bed on room air without oxygen.
Objective Data
-
Vital Signs:
Vital Signs
Temp Pulse Resp BP Pulse Ox
98.5 F 94 19 120/69 93
10/14/23 15:45 10/14/23 16:05 10/14/23 16:05 10/14/23 16:05 10/14/23 12:57
I&O
10/13/23 10/14/23 10/15/23
06:59 06:59 06:59
Intake Total 500 / 500
Output Total 3385 / 3385 5140 / 5140
Balance -3385 / -3385 -4640 / -4640
Review of Systems
-
History Source: Patient
Constitutional: Reports No Symptoms
Respiratory: Reports Cough and Trouble Breathing
Abdomen/GI: Reports Abdominal Pain
Musculoskeletal: Reports Edema (Leg swelling.)
Neuro: Reports No Symptoms
Endocrine: Reports No Symptoms
Hematologic / Lymphatic: Reports Other (Denies bleeding, change in color of stools, change in color of urine, nausea, vomiting, bloating, belching, heartburn.)
Physical Exam
-
General: Well Developed, Well Nourished and Comfortable (On room air when I last examined him at 5:30 PM, icteric looking.)
HEENT: Normocephalic and Atraumatic
Respiratory: Other (Diminished breath sounds on the right side, left side. Diffuse dullness to percussion on the right side.) and Chest Tubes (Chest tube dressing intact. Chest tube in the right side having a drain of 2000 mL.)
Cardiac: Regular Rhythm, S1/S2 and Other (No murmurs rubs and gallops.)
GI: Other (Grade 4 hepatomegaly, grade 2 splenomegaly, distended in right upper and lower quadrant, distended and left upper quadrant, tympanic in right and left lower quadrants on palpation, patient could not turn to left lateral position for
further progression. Bowel sounds present.)
Genito-urinary: No Costovertebral Tender
Musculoskeletal: Edema, Right Lower Extrem (2+ pitting edema present.)
Skin: Warm
Neuro: AO x 3
Psych: Calm
[2023-10-14] MEDS: TYLENOL 650 MG PO (18:32)
[2023-10-14] MEDS: MORPHINE SULFATE 1 MG IV ×2 (18:33→21:16)
--- NOTE | 2023-10-14 21:04 | PTCARENOTE ---
Patient with 8/10 right chest pain at chest tube site despite being administered morphine 1 mg and tylenol one hour prior. fabric normalizer provider made aware and ordered 1 mg to be given every 3 hours instead of every 4.
[2023-10-15] VITALS (7 sets, daily range): BP systolic 90–131; BP diastolic 46–90; BMI 34.3
[2023-10-15 03:47] LABS: Hematocrit 35.1 % (39.0-52.0); Hemoglobin 12.2 g/dL (13.0-18.0); Mean Corp Hgb Conc. 34.8 g/dL (33.0-37.0); Mean Corpuscular Hgb 34.8 pg (27.0-31.0); Mean Platelet Volume 10.4 fL (7.4-10.4); Platelet Count 68 10^3/uL (130-400); Red Blood Cell Count 3.51 10^6/uL (4.70-6.10); Red Cell Dist. Width 15.1 % (11.5-14.5); White Blood Cell Count 7.1 10^3/uL (4.8-10.8)
[2023-10-15 03:57] LABS: INR 2.13; PT 24.1 Sec (11.4-14.6)
[2023-10-15 04:31] LABS: ALT (SGPT) 39 U/L (0-50); AST (SGOT) 68 U/L (17-59); Albumin 2.7 g/dl (3.5-5.0); Alkaline Phosphatase 115 U/L (38-126); Blood Urea Nitrogen 20 mg/dl (9-20); Calcium 8.9 mg/dl (8.4-10.2); Carbon Dioxide 21 mmol/L (22-30); Chloride 106 mmol/L (98-107); Direct Bilirubin 2.1 mg/dl (0.0-0.4); Estimated Creatinine Clearance 108 ml/min; Glucose 116 mg/dl (70-99); Sodium 135 mmol/L (135-145); Total Bilirubin 6.6 mg/dl (0.2-1.3); eGFR > 60.00
--- NOTE | 2023-10-15 04:57 | PTCARENOTE ---
Patient brought down for abd ultrasound overnight. PRN morphine given for pain. Right chest tube remains clamped per MD order.
[2023-10-15 05:20] LABS: Folate 17.6 ng/ml (2.76-20); Vitamin B12 915 pg/ml (239-931)
[2023-10-15] MEDS: BENICAR 20 MG PO (08:21)
[2023-10-15] MEDS: VITAMIN B1 100 MG PO ×2 (08:21→19:27)
[2023-10-15] MEDS: LASIX 40 MG PO (08:21)
[2023-10-15] MEDS: FOLVITE 1 MG PO (08:21)
[2023-10-15] MEDS: NSS (PRESERVATIVE FREE) 10 ML IV (08:22)
[2023-10-15] MEDS: ALDACTONE 25 MG PO (08:22)
[2023-10-15] MEDS: PROTONIX IV 40 MG IV (08:22)
--- NOTE | 2023-10-15 09:19 | PTCARENOTE ---
Patient received from lieutenant shift supervisor. Patient resting comfortably in bed. AAO, VSS. No events noted overnight. No complaints of pain at this time. Right sided chest tube remains in place and still clamped per Pulmonary order. Plan to unclamp
later this morning and possibly removed based on output. Call lane in reach.
--- NOTE | 2023-10-15 10:10 | W.PN.GI.CBS2 ---
Today's Communication / Plan
-
Hold diuretics given rising Cr
Consider removal of chest tube when deemed appropriate per pulm
Assessment / Plan
-
Clive is a 53yo M with h/o ETOH cirrhosis MELD 22 with alcoholic hepatitis in 06/2023 who was admitted with SOB and found to have large R sided pleural effusion. He is known to Dr Prince/GI with planned EGD for EV screening 10/21. He reports
abstinence from ETOH for the past 4 months. He did undergo chest tube with over 1L removed 5/ by IR. Exam VSS, diminished BS in R base, NTTP, NABS. Labs reviewed.
Impression
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
Chest tube with about 1L of pleural fluid removed 10/12 by IR
Neg light's criteria
Transudative
- Cirrhosis MELD 3.0 = 22 on admission
- ETOH abuse with acute alcoholic hepatitis in 06/2023
Last ETOH drink was 4 mo ago
- Elevated LFTs
High indirect bili suggestive of Gilbert
- h/o anal fissure
- H/o colonic polyps
Recommendations
- Monitor chest tube output, consider removal timing per pulmonary. D/w pulm today
- Given rise in Cr and high output from chest tube will hold diuretics today
- Monitor urine output
- He continues to decline MRI/MRCP due to severe claustrophobia
- Will need transplant hepatology evaluation outpt basis
- Continue ETOH abstinence
- OP FU with [facility] with Dr Prince arranged for 11/10 at 1130am. OP EGD cancelled and will be rescheduled post FU GI visit
Will follow with
Subjective
Subjective
Date of Service: October 15, 2023
Patient without acute events overnight. He is tolerating diet and urinating frequently. Denies SOB
Objective
Data Reviewed
Laboratory Data:
Laboratory Results
10/15/23 03:28
10/15/23 03:28
Laboratory Results
PT 24.1 Sec (11.4-14.6) H 10/15/23 03:28
INR 2.13 10/15/23 03:28
APTT 42.4 Sec (23.4-35.0) H 10/13/23 17:47
Phosphorus 4.3 mg/dl (2.5-4.5) 10/14/23 03:27
Magnesium 1.9 mg/dl (1.6-2.3) 10/14/23 03:27
Total Bilirubin 6.6 mg/dl (0.2-1.3) H 10/15/23 03:28
AST 68 U/L (17-59) H 10/15/23 03:28
ALT 39 U/L (0-50) 10/15/23 03:28
Alkaline Phosphatase 115 U/L (38-126) 10/15/23 03:28
Vital Signs and I&O:
Vital Signs
Temp Pulse Resp BP Pulse Ox
97.5 F 78 19 122/69 95
10/15/23 07:43 10/15/23 08:21 10/14/23 16:05 10/15/23 08:21 10/14/23 21:22
I&O
10/14/23 10/15/23 10/16/23
06:59 06:59 06:59
Intake Total 500 / 500
Output Total 3385 / 3385 5340 / 5340
Balance -3385 / -3385 -4840 / -4840
Physical Exam
Physical Exam
GEN: No acute distress, conversant, pleasant
HEENT: anicteric, extraocular movements intact, clear oropharynx without exudates
RESP: diminished breath sounds bilaterally
GI: soft, obese non-distended, not tender to palpation, normal active bowel sounds, no hepatosplenomegaly
EXT: warm, well perfused, no edema bilaterally
NEURO: AAOx3, non-focal no asterixis
--- NOTE | 2023-10-15 10:21 | W.PN.PUL3 ---
Today's Communication / Plan
-
Placed chest tube back to negative suction and will try to remove as much fluid as possible before removing chest tube
Lasix and aldactone
MAP>65
Give albumin today (25g 25% x 2 doses)
Pulmonary service will continue to follow
Assessment
-
Assessment: 53-year-old male with a past medical history of alcoholic cirrhosis, hypertension and anal condyloma who presents with SOB plus cough X 6 weeks. Patient was sent to the ER from our office on 10/13/2023 due to shortness of breath with
hypoxia. He had a 6 MWT showing he needs 1 L O2 with ambulation and spirometry showed severe restriction. He also had RLE swelling. In the ER he was saturating 93% on room air, was otherwise afebrile to 98.4 �F, BP 143/79, RR: 18, and pulse rate
95. Labs showed Hb 13.2, platelets 78, INR 2.05, T. bili 5.2, elevated LFTs with ALT 51, AST 89, ALP 155, and albumin 3.3. CXR showed complete opacification of the right hemithorax with mass effect due to suspected large right-sided pleural
effusion with underlying mass/pneumonia not excluded. RLE ultrasound was negative for DVT. CT of the chest showed a very large right-sided pleural effusion with midline shift and and a small�moderate mount of ascites with nodular external contour
of the liver suggestive of cirrhosis. IR inserted a chest tube into the right hemithorax and serosanguineous fluid was removed. Fluid studies showed transudative fluid with WBC 355 and PMNs 17.5%. Fluid culture and cytology also sent. Follow-up
CXR done on morning of 10/13 showed improvement in the right-sided pleural effusion however there is still a persistently large right-sided pleural effusion. Pulmonary now consulted for further recommendations.
Chronic conditions TRIP RIDER: Alcoholic cirrhosis, hypertension, anal condyloma
Impression:
#Right-sided pleural effusion with mass effect due to hepatohydrothorax from EtOH-cirrhosis
#Decompensated hepatic cirrhosis with ascites and right-sided hepatohydrothorax
#Distended gallbladder with mobile sludge without pericholecystic edema or Hickey sign
#Hx of alcohol abuse - abstinent from EtOH for several months now
#Thrombocytopenia � due to history of cirrhosis
#Chronic anemia
#Transaminitis with hyperbilirubinemia
Plan:
- Unfortunately, a chest tube in setting of hepatohydrothorax is contraindicated. There is now high risk of the fluid not stopping, however in setting of SOB and how severe his R-effusion was with mass effect, I am glad the effusion was drained,
but perhaps a thoracentesis would have been ideal along with a paracentesis. He may ultimately still need a paracentesis
- I will open up his chest tube today and drain was is remaining in his right pleural space, with plans to remove his chest tube today or tomorrow.
- If chest tube drains more than 2-3L then clamp the chest tube immediatley to prevent re-expansion pulmonary edema
- Continue lasix and aldactone is needed to help reduce third spacing - this was already started by GI
- If re-accumulation of pleural fluid is too rapid then will need to refer to IR for TIPS and consider transfer to tertiary care center for liver transplant evaluation
- Maintain SpO2 >90-94% with supplemental O2 as needed
- Incentive spirometer encouraged
- prn nebulized bronchodilators
- Repeat CXR in AM
- Trend LFTs and avoid hepatotoxic agents
- Replete electrolytes with K>4, Mg>2
- Maintain euglycemia with goal BG >100 and <180
- DVT ppx
Pulmonary service will continue to follow along.
Total time spent today was 35 minutes for this encounter. Time includes reviewing laboratory test/imaging results, reviewing pertinent medical records, obtaining and reviewing medical history, performing an appropriate exam, ordering medications,
tests and procedures. Time also includes documentation of this encounter, coordinating patient care and communicating with other healthcare professionals. Total time does not include separately billed tests performed on this date of service.
Data:
CXR 10-15-2023:
Placement of right chest tube with significantly decreased right pleural fluid.
No findings to confirm pneumothorax.
CXR 10-13-2023:
Interval development of complete opacification right hemithorax with mass effect and shift of the mediastinum toward the left.
Findings most likely represent a large right pleural effusion. Underlying mass and/or pneumonia is not excluded radiographically.
CTA Chest 10-13-2023:
Examination is nondiagnostic for pulmonary embolism.
Very large right pleural effusion with mass effect and midline shift. Collapse of the right lung.
No significant left pleural effusion.
Small to moderate amount of ascites in the visualized upper abdomen. Nodular external contour of the visualized liver, suggestive of cirrhosis. Splenomegaly is present, as seen on previous ultrasound of the abdomen.
If there are persistent clinical symptoms highly suggestive of pulmonary embolism after right-sided thoracentesis, a repeat CT examination with pulmonary embolism protocol could be performed.
Subjective Data
-
Date of Service:
Date of Service: October 15, 2023
Chief Complaint: Pulmonary Follow Up
Subjective:
Patient seen and evaluated today at bedside. Afebrile overnight. On room air this morning - also at bedside. Patient feels well, denies shortness of breath, chest pain but he does have some cramping discomfort on his right side of his upper
abdomen. CXR this morning shows marked improvement in aeration of right hemithorax. Output from the chest tube over the last 24 hours was 3640cc.
Review of Systems
General: Other (Negative less mentioned above)
Objective Data
Data Reviewed
Vital Signs / I&O / Oxygen:
Vital Signs
Temp Pulse Resp BP Pulse Ox
97.5 F 78 19 122/69 95
10/15/23 07:43 10/15/23 08:21 10/14/23 16:05 10/15/23 08:21 10/14/23 21:22
Intake and Output
10/14/23 10/15/23 10/16/23
06:59 06:59 06:59
Intake Total 500 / 500
Output Total 3385 / 3385 5340 / 5340
Balance -3385 / -3385 -4840 / -4840
SaO2 95
Nasal Cannula flow liters per 2
minute
Physical Exam
General: Respiratory Distress (negative) and Comfortable
HEENT: Normocephalic and Moist Mucous Membranes
Cardiovascular: S1-S2 and Peripheral Edema (+1 edema in the RLE; none seen in LLE)
Respiratory: Crackles ((+) in RLL - RML)
GI: Soft, Non Distended, Non Tender and Normal Bowel Sounds
Neurology: AO x 3
Skin: Warm, Dry and Cyanosis (negative)
Labs/Micro/Reports
Lab Data
10/15/23 03:28
10/15/23 03:28
Laboratory Results
10/15/23
03:28
PT 24.1 H
INR 2.13
Microbiology
10/13/23 21:59 Pleural Fluid Gram Stain - Preliminary
--- NOTE | 2023-10-15 11:54 | PN.CDI ---
CDI
- -
CDI:
Physician Documentation Request
Admit Date: 10/13/23 20:21
Dear Doctor Christine,
Please review the following and provide your response in the progress notes.
Clinical Indicators:
10/12 Pt admitted with right pleural effusion
10/12 ER note: 'presents from his first visit to pulmonology Dr. Reyes's office for 7 weeks of cough and 5 weeks of shortness of breath. Hypoxemia'
'Patient presents with shortness of breath ongoing for months.'
10/12 H&P: 'Patient notes that he is not limited in most activities; however, he takes a very long time to recover following exertion.
10/13 PN: 'Shortness of breath resolved, sitting comfortably in bed on room air without oxygen.'
10/13/23
17:54 10/13/23
21:15 10/13/23
22:46
Nasal Cannula flow liters per minute 2 6 6
Selected Entries
10/13/23
18:00 10/13/23
21:25 10/13/23
22:45
Resp Rate 29 30 28
Clarify which of the following accurately represents the patient's respiratory status:
Acute hypoxic respiratory failure, resolved
Hypoxia
Other
Additional information for Respiratory Failure:
Recognized criteria for Respiratory Failure (Source: [facility] Apr 2013)
ABGs: (1 or more) Symptoms Please indicate type if known
1. p)2 <60 or RA SPO2 <91% on RA 1. Tachypnea, SOB, dyspnea Hypoxic
2. pCO2 50 and pH <7.35 2. Use of accessory muscles Hypercapnic
3. pO2 decrease of pCO2 increase by 3. Pallor or cyanosis Hypoxic and Hypercapnic
10 mmHg from baseline if known 4. Anxiety or restlessness Unable to determine
5. Unable to speak in full sentences
Supplemental O2 of > 40% (5LPM) Intubation is not required
Use of terms such as suspected, likely, concern for, or probable (associated with a specific diagnosis that is being evaluated, monitored, or treated as if it exists) are acceptable and can be coded in the inpatient setting, when documented at the
time of discharge.
Thank you,
Ceci Meneses RN, BSN
CDI Specialist
Available via [facility] [employer]
Selected Entries
Please use your independent medical judgment in providing your response.
[2023-10-15] MEDS: MORPHINE SULFATE 1 MG IV (12:15)
[2023-10-15] MEDS: FLEXBUMIN 100 IV ×2 (14:55→18:12)
--- NOTE | 2023-10-15 16:57 | W.PN.HOSP.TC ---
Addendum entered and electronically signed by Titi King MD 10/15/23 22:03:
Attending Addendum-
I saw and evaluated the patient. I reviewed the resident�s note and agree with findings and plan as documented in the resident�s note. Feels much improved, denies pain @ CT site. States breathing has significantly improved and cough almost resolved.
Denies fevers chills. Full 12 point ROS reviewed and negative except as documented. Exam: Vitals reviewed in chart GEN- NAD heart RRR lungs improved aeration right lung decreased at bases rt CT in place draining serosang fluid abd soft NT ND pos BS
LE +1 pitting edema Rt>left Neuro AAO x 3 no tremor/asterixis Plan:
Large Right Pleural Effusion
- SP IR thoracentesis with chest tube placed immediately- 1 L removed immediately
- hepatohydrothorax
- Chest tube management per Pulm - still putting out significant amounts of fluid
- transudate-secondary to cirrhosis, cytology - P
- CXR reviewed-right chest tube with significantly decreased right pleural fluid.
- For CT removal today
- cxr in am
Acute Hypoxemic Respiratory Failure-
-resolved
Alcoholic Cirrhosis with minimal Ascites, Thrombocytopenia and Coagulopathy
- LFTs increased
- Screening endoscopy as an OP
- restart furosemide and spironolactone in am
- Follow I/Os, daily weights, etc.
- GI input appreciated - for transplant eval as OP.
- sober x 4 months
- MELD-Na = 23.
- Maddreys- 46
- LFT's improving
RADHA-
- secondary to hepatorenal syndrome
- lasix and spironolactone held today
- restart on DC
- repeat BMP in am
RLE Swelling
- US negative for DVT.
Benign Hypertension
- Stable. Continue olmesartan with holding parameters.
- furosemide / spironolactone held restart in am
Obesity due to excess calories
- Affects all aspects of care.
- Patient reports weight loss since cessation of alcohol in June.
- Continue healthy lifestyle and exercise with goal of weight loss.
DVT Prophylaxis: SCDs
Code Status: Full
Dispo- Hopeful DC in am
Time spent coordinating care, review of plan of care with resident, review of records, med rec, consults, notes, labs, rads, d/w nursing and patients girlfriend � 58 mins
Original Note:
Today's Communication/Plan
-
Awaiting chest tube removal.
Monitor for symptoms overnight. Chest x-ray in the a.m. tomorrow.
Follow-up with GI for outpatient.
Assessment / Plan
Assessment / Plan
Impression-
53-year-old male with PMHx of alcoholic hepatitis, hypertension, hyperlipidemia, and thrombocytopenia presents to the hospital with gradual onset of cough over 7 weeks and shortness of breath x 5 weeks.
Diagnosed with right-sided pleural effusion. Alcoholic cirrhosis.
Plan-
Large right-sided pleural effusion-
Pleural fluid analysis suggestive of transudate.
Likely hydrothorax secondary to cirrhosis.Chest tube inserted 10/12. about 1 L of fluid drained.
Patient reported no symptoms after 1 L of fluid drained. Chest tube collection overnight-4950 mL on 10/13. Another 3640 mL drain overnight by 7 AM on 10/14. Chest tube clamped overnight.
Collection of about 1900 mL with -10 tube -20 suction. Chest tube reclamped.
Plan is to get the chest tube out by tonight or tomorrow.
If reaccumulation of pleural fluid is too rapid, patient may need referral to tertiary care center for TIPS procedure and liver transplant evaluation.
Hypoxia
Secondary to pleural effusion. Resolved.
cirrhosis with ascites-
Total bilirubin at 6.2, direct bilirubin at 2.0.
AST ALT elevated than baseline. ALT and AST levels improving.
Serum LDH within normal limits. Alkaline phosphatase elevated as well.
Findings suggestive of Gilbert's syndrome.
On diuresis regimen with furosemide and spironolactone.
Trend potassium levels. GI evaluation-F4 disease on FibroScan in outpatient. Patient refused MRI due to being extremely claustrophobic.
Previous ultrasound was in June 2023. Repeat ultrasound today.
Monitor I's and O and daily weights. MELD score 21. Maddrey's discriminant function score from alcoholic hepatitis-46.2.
Patient will likely benefit from glucocorticoid therapy.
GI ordered an ultrasound with Doppler. Trend LFTs.
GI recommends outpatient evaluation by transplant hepatology for liver transplant.
Hypoalbuminemia
Albumin levels at 2.9. Albumin supplementation added.
Repeat albumin's in the a.m. tomorrow.
Coagulopathy--
In the setting of alcoholic liver disease, elevated PT levels and thrombocytopenia a diagnosis of coagulopathy given.
Vitamin K 10 mg oral given.Platelet count at 68 today. (77 yesterday)
Monitor PT levels and platelet count. INR within normal limits.
Anemia of chronic disease-
Multifactorial-secondary to alcoholic liver disease vs thiamine folate deficiency.
Patient is on oral folate and thiamine supplementation.
Vitamin B12 levels, folate within normal limits.
Constipation-
On MiraLAX.
Right lower extremity edema-
ultrasound negative for DVT
May be secondary to cirrhosis.
Benign hypertension-
Continue olmesartan with holding parameters
Furosemide and spironolactone as above
Obesity due to excess calories-continue healthy lifestyle.
DVT prophylaxis-SCDs
CODE STATUS full
Anticipated Discharge: Within 24 hours
Subjective/Interval History
-
Date of Service: October 15, 2023
Throbbing pain at the site of chest tube insertion. Pain is intermittent, and is about 6 out of 10.
Objective Data
-
Vital Signs:
Vital Signs
Temp Pulse Resp BP Pulse Ox
98.3 F 82 19 119/90 95
10/15/23 15:49 10/15/23 12:04 10/14/23 16:05 10/15/23 12:08 10/15/23 10:43
I&O
10/14/23 10/15/23 10/16/23
06:59 06:59 06:59
Intake Total 500 / 500
Output Total 3385 / 3385 5340 / 5340
Balance -3385 / -3385 -4840 / -4840
Review of Systems
-
History Source: Patient
Constitutional: Reports Other (Tired from lack of sleep. Specifically states not fatigued.)
Respiratory: Reports No Symptoms
Cardiac: Reports No Symptoms
Abdomen/GI: Reports Other (Pain in RUQ and LUQ, throbbing, episodic, nonradiating, 4 out of 10.)
Genitourinary: Reports No Symptoms
Musculoskeletal: Reports Edema (Right lower extremity swelling.)
Skin: Reports No Symptoms
Neuro: Reports No Symptoms
Endocrine: Reports No Symptoms
Hematologic / Lymphatic: Reports No Symptoms
Allergy / Immunology: Reports No Symptoms
Physical Exam
-
General: Comfortable and Other (Icteric)
HEENT: Normocephalic, Atraumatic and Moist Mucous Membranes
Respiratory: Other (Normal vesicular breath sounds on left side, RLL - crackles heard, ) and Chest Tubes (Dressing clean and intact. No edema erythema noted at the site of dressing.)
Cardiac: Regular Rhythm, S1/S2 and Other (Based on my notes, gallops)
GI: Other (Grade 4 hepatomegaly, grade 2 splenomegaly, distended in right upper and lower quadrant, distended and left upper quadrant, tympanic in right and left lower quadrants on percussion, patient could not turn to left lateral position for
further progression. Bowel sounds present.)
Musculoskeletal: No Clubbing, No Cyanosis and Edema, Right Lower Extrem (2 + pedal edema present.)
Neuro: AO x 3
Hematologic / Lymphatic: No Lymphadenopathy
Psych: Calm
--- NOTE | 2023-10-15 17:43 | W.PN.UPDATE ---
Update Note
Progress Note Update
Right sided chest tube removed. There was no immediate complication. I checked bedside US prior to removing chest tube and right lung was almost fully expanded with small right pleural effusion seen at costo-phrenic angle. Will check CXR in AM.
--- NOTE | 2023-10-15 17:45 | PTCARENOTE ---
Chest removed, tolerating well. No immediate complications. Call lane in reach.
--- NOTE | 2023-10-15 19:22 | PTCARENOTE ---
Report called to [facility] 4E.
[2023-10-16 03:44] VITALS: BP 133/79
[2023-10-16 06:57] LABS: % Basophils 0.8 % (0-2); % Eosinophils 5.4 % (0-6); % Immature Granulocytes 0.2 % (0-0.5); % Lymphocytes 24.9 % (20.5-51.1); % Neutrophils 54.7 % (42.2-75.2); Absolute Eosinophils 0.3 10^3/uL (0-0.7); Absolute Lymphocytes 1.3 10^3/uL (1.2-3.4); Absolute Monocytes 0.7 10^3/uL (0.1-0.6); Absolute Neutrophils 2.9 10^3/uL (1.4-6.5); Hematocrit 33.1 % (39.0-52.0); Hemoglobin 11.7 g/dL (13.0-18.0); INR 2.15; Mean Corp Hgb Conc. 35.3 g/dL (33.0-37.0); Mean Corpuscular Hgb 34.3 pg (27.0-31.0); Mean Corpuscular Volume 97.1 fL (80.0-94.0); Mean Platelet Volume 10.3 fL (7.4-10.4); Nucleated Red Blood Cells % 0 % (-); PT 24.2 Sec (11.4-14.6); Platelet Count 72 10^3/uL (130-400); Red Blood Cell Count 3.41 10^6/uL (4.70-6.10); White Blood Cell Count 5.2 10^3/uL (4.8-10.8)
[2023-10-16 07:23] LABS: ALT (SGPT) 37 U/L (0-50); AST (SGOT) 55 U/L (17-59); Albumin 2.5 g/dl (3.5-5.0); Alkaline Phosphatase 109 U/L (38-126); Blood Urea Nitrogen 27 mg/dl (9-20); Calcium 8.5 mg/dl (8.4-10.2); Carbon Dioxide 26 mmol/L (22-30); Chloride 105 mmol/L (98-107); Estimated Creatinine Clearance 115 ml/min; Glucose 86 mg/dl (70-99); Potassium 3.7 mmol/L (3.5-5.1); Sodium 134 mmol/L (135-145); Total Bilirubin 3.7 mg/dl (0.2-1.3); Total Protein 6.4 g/dl (6.3-8.2); eGFR > 60.00
[2023-10-16 07:30] VITALS: BP 117/62
--- NOTE | 2023-10-16 07:47 | W.PN.HOSP.TC ---
Addendum entered and electronically signed by Titi King MD 10/16/23 15:23:
Attending Addendum-
I saw and evaluated the patient. I reviewed the resident�s note and agree with findings and plan as documented in the resident�s note. No complaints. Denies CT site pain / sob. Full 12 point ROS reviewed and negative except as documented. Exam:
Vitals reviewed in chart GEN- NAD heart RRR lungs improved aeration right lung decreased at bases rt CT incision site CDI abd soft NT ND pos BS LE +1 pitting edema Rt>left Neuro AAO x 3 no tremor/asterixis Plan:
Large Right Pleural Effusion
- SP IR thoracentesis with chest tube placed immediately- 1 L removed immediately
- hepatohydrothorax
- transudate-secondary to cirrhosis, cytology - P
- CT removed 10/14
- CXR reviewed with rads 10/15 - small right apical PTX
- cxr in am
# Right Apical PTX-
- post CT removal on 10/14
- high flow o2 with venturi mask
- repeat CXR in am
Acute Hypoxemic Respiratory Failure-
-resolved
Alcoholic Cirrhosis with minimal Ascites, Thrombocytopenia and Coagulopathy
- Screening endoscopy as an OP
- restart furosemide and spironolactone
- Follow I/Os, daily weights, etc.
- GI input appreciated - for transplant eval as OP.
- sober x 4 months
- MELD-Na = 23.
- Maddreys- 46
- LFT's improving
- f/u GI as OP 11/10
RADHA-
- resolving
- secondary to hepatorenal syndrome
- lasix and spironolactone restarted
- repeat BMP in am
RLE Swelling
- US negative for DVT.
Benign Hypertension
- Stable. Continue olmesartan with holding parameters.
- furosemide / spironolactone held restart in am
Obesity due to excess calories
- Affects all aspects of care.
- Patient reports weight loss since cessation of alcohol in June.
- Continue healthy lifestyle and exercise with goal of weight loss.
DVT Prophylaxis: SCDs
Code Status: Full
Dispo-DC in am
Time spent coordinating care, review of plan of care with resident, review of records, med rec, consults, notes, labs, rads, d/w nursing Pulm radiology and patients girlfriend � 60 mins
Original Note:
Today's Communication/Plan
-
X chest x-ray in the a.m. tomorrow.
Continue oxygenation. Monitor for shortness of breath cough.
Possible discharge tomorrow if chest x-ray shows resolution of apical pneumothorax.
Assessment / Plan
Assessment / Plan
Impression-
53-year-old male with PMHx of alcoholic hepatitis, hypertension, hyperlipidemia, and thrombocytopenia presents to the hospital with gradual onset of cough over 7 weeks and shortness of breath x 5 weeks.
Diagnosed with right-sided pleural effusion. Alcoholic cirrhosis.
Plan-
Large right-sided pleural effusion-
Resolved. Chest tube removed at 5:30 PM yesterday.
Repeat chest x-ray in the a.m. today-mild apical pneumothorax.
Patient started on oxygenation.
Repeat chest x-ray in the a.m. tomorrow. Plan to discharge home if the pneumothorax resolved.
Likely hydrothorax secondary to cirrhosis.Chest tube inserted 10/12. 10 L of fluid drained overnight.
If reaccumulation of pleural fluid is too rapid, patient may need referral to tertiary care center for TIPS procedure and liver transplant evaluation.
Mild apical pneumothorax-continue oxygenation.
Hypoxia
Secondary to pleural effusion. Resolved.
cirrhosis with ascites-
Total bilirubin at 3.7.
AST ALT elevated than baseline. ALT and AST levels improving.
Serum LDH within normal limits. Alkaline phosphatase elevated as well.
Findings suggestive of Gilbert's syndrome.
Touch base with GI. GI recommends Lasix 20 and Aldactone 25 OD. BMP in 2 to 5 days and then outpatient follow-up.
Trend potassium levels. GI evaluation-F4 disease on FibroScan in outpatient. Patient refused MRI due to being extremely claustrophobic.
Previous ultrasound was in June 2023. Repeat ultrasound today.
MELD score 21. Maddrey's discriminant function score from alcoholic hepatitis-46.2.
Patient does not need steroids at this point.
Ultrasound with Doppler results-hepatomegaly and splenomegaly with normal portal venous system, abdominal aorta and IVC not visualized, tail of the pancreas not visualized.
GI recommends outpatient evaluation by transplant hepatology for liver transplant.
Hypoalbuminemia
Albumin levels at 2.9. Albumin supplementation added.
Coagulopathy--
In the setting of alcoholic liver disease, elevated PT levels and thrombocytopenia a diagnosis of coagulopathy given.
Vitamin K 10 mg oral given.Platelet count at 72 today. (77 yesterday)
Monitor PT levels and platelet count. INR within normal limits.
Anemia of chronic disease-
Multifactorial-secondary to alcoholic liver disease vs thiamine folate deficiency.
Patient is on oral folate and thiamine supplementation.
Vitamin B12 levels, folate within normal limits.
Constipation-
On MiraLAX.
Right lower extremity edema-
ultrasound negative for DVT
May be secondary to cirrhosis.
Benign hypertension-
Continue olmesartan with holding parameters
Furosemide and spironolactone as above
Obesity due to excess calories-continue healthy lifestyle.
DVT prophylaxis-SCDs
CODE STATUS full
Anticipated Discharge: Within 24 hours
Subjective/Interval History
-
Date of Service: October 16, 2023
Chest tube drain removed.
Patient denies cough, shortness of breath, chest pain, bleeding, oozing.
Objective Data
-
Labs:
Laboratory Results
10/16/23
05:47
WBC 5.2
Hgb 11.7 L
Hct 33.1 L
Plt Count 72 L
PT 24.2 H
INR 2.15
Sodium 134 L
Potassium 3.7
Chloride 105
Carbon Dioxide 26
BUN 27 H
Creatinine 1.1
Glucose 86
Calcium 8.5
Total Bilirubin 3.7 H
AST 55
ALT 37
Alkaline Phosphatase 109
Vital Signs:
Vital Signs
Temp Pulse Resp BP Pulse Ox
97.9 F 92 18 133/79 98
10/16/23 03:44 10/16/23 03:44 10/16/23 03:44 10/16/23 03:44 10/16/23 03:44
I&O
10/15/23 10/16/23 10/17/23
06:59 06:59 06:59
Intake Total 500 / 500 1050 / 1050
Output Total 5340 / 5340 2580 / 2580
Balance -4840 / -4840 -1530 / -1530
Review of Systems
-
History Source: Patient
All other systems: Reviewed and negative
Physical Exam
-
General: Comfortable (On room air, icterus resolved.)
HEENT: Normocephalic and Atraumatic
Respiratory: Other (Clear to auscultation on the left side, mildly diminished breath sounds in the right basilar area on posterior side. Chest tube removed, dressing intact. No tenderness.)
Cardiac: Regular Rhythm, S1/S2 and Other (no murmurs, rubs and gallops.)
GI: Soft and Other (Mildly distended, nontender. Grade 2 hepatomegaly and grade 2 splenomegaly.)
Musculoskeletal: Edema, Right Lower Extrem (2+ pitting edema.)
Neuro: AO x 3
Psych: Calm
--- NOTE | 2023-10-16 07:48 | W.DCSUMMARY ---
Addendum entered and electronically signed by Titi King MD 10/16/23 21:35:
Attending Addendum:
Read reviewed and agree. See same day progress note for additional details. D/W Pulm had cxr prior to DC which showed resolved PTX. Patient stable for DC.
Reynaldo King MD
Original Note:
Documented by User: Chelly King MD, Resident 10/16/23 18:24
Discharge Summary
Discharge Data
Date of Admission: 10/13/23
Date of Discharge: 10/16/23
-
Pending Results: No
Additional Pending Results:
none.
Hospital Course
53-year-old male presented to the hospital with shortness of breath and tickly cough that progressively worsened for 7 weeks. He was referred to the hospital after being seen by parts salesperson .
Admission diagnosis-
massive right-sided pleural effusion.
Alcoholic hepatitis.
Cirrhosis.
Hospital course-
Massive right-sided pleural effusion-
During the hospital course a chest tube was inserted and about 1 L of fluid drained by IR after which patient became symptomatic. Then a chest tube was placed and about 5 L of fluid drained overnight. On day 2 clamping trial was initiated
following which patient developed another 3 L of fluid accumulation. Overnight clamping trial successful with fluid drained less than 2000 mL. Chest tube was removed yesterday evening. After drainage of about 10 L of fluid over 2 days patient
developed hypoalbuminemia for which albumin supplementation was given.
After removal of the chest tube, patient required oxygen therapy with Venturi mask due to development of pneumothorax. On repeat chest x-ray at 4 PM the pneumothorax resolved.
Cirrhosis-
Patient cirrhosis was found to be associated with coagulopathy and thrombocytopenia. Upon admission his LFTs were elevated. Furosemide and spironolactone were initiated and patient's weight decreased by 7kgs. He went down from 1 41-127 kg.
In the setting of coagulopathy and thrombocytopenia, patient was given a single dose of vitamin K oral.
MELD score at 23. Maddrey score at 46. In the setting of improved LFT during the hospital course along with elevated indirect bilirubin possibility of Gilbert's syndrome and fatty liver (MAN-F4) more likely contributing to cirrhosis than his past
diagnosis of alcoholic hepatitis.
Patient has been sober for 4 months.
GI deferred steroids as alcoholic liver disease associated cirrhosis less likely.
Right lower extremity swelling-ultrasound negative for deep vein thrombosis
Benign hypertension on olmesartan, continue furosemide and spironolactone.
Obesity due to excess calories-patient reports choosing healthy lifestyle since cessation of alcohol in June highly encourage continuing lifestyle management.
Follow-up with outpatient GI for transplant hepatology evaluation.
Diagnostic imaging during hospital admission-
Echocardiogram-10/14/2023
Normal biventricular size and systolic function without regional wall motion
abnormality. Estimated LVEF 60-65%.
Mild concentric left ventricular hypertrophy.
Aortic sclerosis without stenosis.
Chest CT-10/14/2023
Very large right pleural effusion with mass effect and midline shift. Collapse of the right lung.
No significant left pleural effusion.
Small to moderate amount of ascites in the visualized upper abdomen. Nodular external contour of the visualized liver, suggestive of cirrhosis. Splenomegaly is present, as seen on previous ultrasound of the abdomen.
Peripheral vascular ultrasound-10/14/2023
No evidence of deep venous thrombosis of the right lower extremity.
Ultrasound abdomen with Doppler-10/15/2023
Patency and normal directional flow within the main portal vein, right portal vein, and left portal vein.
Patent hepatic veins. Spectral waveforms of the hepatic veins are dampened, which can be seen in association with cirrhosis.
Gallbladder is distended and contains a small amount of mobile sludge. No evidence for gallbladder wall thickening or pericholecystic edema.
Nodular external contour of the liver compatible with cirrhosis. Increased echogenicity of the liver, which is likely hepatocellular disease associated with cirrhosis. No sonographic evidence for a focal hepatic mass lesion.
Splenomegaly.
Pancreatic tail is unable to be adequately visualized. The upper abdominal aorta and the IVC are unable to be adequately visualized.
Discharge Plan
-
Patient Disposition: Home (Routine Discharge)
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
Condition: Good
Diet: 2 Gram Sodium and Restrict fluids to 64 oz
Activity: As tolerated
Driving Restrictions: As prior to admission
Bathing Restrictions: None
Blood Work: CBC, CMP x 1 week after discharge before seeing GI.
Activity Restrictions/Additional Instructions:
Exercise regularly as tolerated.
Referrals:
Chelly King MD, Resident [Active] -
Edu Prince MD [Active] -
UNKNOWN - PT DOES,NOT KNOW [Family Provider] - (Chelly King MD.)
Prescriptions:
New
polyethylene glycol 3350 [HealthyLax] 17 gram Powder In Packet
17 g PO DAILY Qty: 30 0RF
spironolactone [Aldactone] 25 mg tablet
25 mg PO DAILY Qty: 30 0RF
furosemide [Lasix] 20 mg tablet
20 mg PO DAILY Qty: 30 0RF
Continued
folic acid 1 mg Tablet
1 mg PO DAILY Qty: 0 0RF
olmesartan 20 mg Tablet
20 mg PO DAILY
thiamine HCl (vitamin B1) 100 mg Tablet
100 mg PO BID Qty: 0 0RF
Discontinued
Metamucil Fiber Thin 2 gram Wafer
2 wafer PO DAILY PRN (Reason: constipation)
Discharge Orders:
Discharge Patient (As Directed); Ordered 10/16/23
Ordered By: Chelly King
Discharge Date and Time
Print Language: FRISIAN

Documented by User: Titi King MD 10/16/23 21:33
Discharge Summary
Discharge Data
Date of Admission: 10/13/23
Date of Discharge: 10/16/23
Discharge Plan
-
Patient Disposition: Home (Routine Discharge)
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
Condition: Good
Diet: 2 Gram Sodium and Restrict fluids to 64 oz
Activity: As tolerated
Driving Restrictions: As prior to admission
Bathing Restrictions: None
Blood Work: CBC, CMP x 1 week after discharge before seeing GI.
Activity Restrictions/Additional Instructions:
Exercise regularly as tolerated.
Referrals:
Chelly King MD, Resident [Active] -
Edu Prince MD [Active] -
UNKNOWN - PT DOES,NOT KNOW [Family Provider] - (Chelly King MD.)
Prescriptions:
New
polyethylene glycol 3350 [HealthyLax] 17 gram Powder In Packet
17 g PO DAILY Qty: 30 0RF
spironolactone [Aldactone] 25 mg tablet
25 mg PO DAILY Qty: 30 0RF
furosemide [Lasix] 20 mg tablet
20 mg PO DAILY Qty: 30 0RF
Continued
folic acid 1 mg Tablet
1 mg PO DAILY Qty: 0 0RF
olmesartan 20 mg Tablet
20 mg PO DAILY
thiamine HCl (vitamin B1) 100 mg Tablet
100 mg PO BID Qty: 0 0RF
Discontinued
Metamucil Fiber Thin 2 gram Wafer
2 wafer PO DAILY PRN (Reason: constipation)
Discharge Orders:
Discharge Patient (As Directed); Ordered 10/16/23
Ordered By: Chelly King
Discharge Date and Time
Print Language: FRISIAN
[2023-10-16] MEDS: FOLVITE 1 MG PO (08:17)
[2023-10-16] MEDS: BENICAR 20 MG PO (08:17)
[2023-10-16] MEDS: VITAMIN B1 100 MG PO (08:17)
[2023-10-16] MEDS: NSS (PRESERVATIVE FREE) 10 ML IV (08:17)
[2023-10-16] MEDS: PROTONIX IV 40 MG IV (08:17)
--- NOTE | 2023-10-16 10:35 | CM ---
Patient seen bedside with , reports no needs to CM at this time. to provide transportation home when patient stable for discharge. CM will continue to follow for discharge planning needs.
Plan; home with , no needs.
--- NOTE | 2023-10-16 10:59 | W.PN.GI.CBS2 ---
Today's Communication / Plan
-
Will start back on Lasix 20 mg /Aldactone 25 mg daily
2 g sodium diet
Monitor BMP in 1 week with PCP
GI follow-up as outpatient. Outpatient referral for liver transplant eval
Assessment / Plan
-
Clive is a 53yo M with h/o ETOH cirrhosis MELD 22 with alcoholic hepatitis in 06/2023 who was admitted with SOB and found to have large R sided pleural effusion. He is known to Dr Prince/[facility] with planned EGD for EV screening 10/21. He reports
abstinence from ETOH for the past 4 months. He did undergo chest tube with over 1L removed 10/12 by IR. Exam VSS, diminished BS in R base, NTTP, NABS. Labs reviewed.
Impression
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
Chest tube with about 1L of pleural fluid removed 10/12 by IR
Neg light's criteria
Transudative
- Cirrhosis MELD 3.0 = 22 on admission
- ETOH abuse with acute alcoholic hepatitis in 06/2023
Last ETOH drink was 4 mo ago
- Elevated LFTs
High indirect bili suggestive of Gilbert
- h/o anal fissure
- H/o colonic polyps
Recommendations
-Chest tube was removed. Awaiting repeat chest x-ray this a.m.
-Creatinine is better. Will start on Lasix 20 mg/Aldactone 25 mg daily
-2 g sodium diet
- He continues to decline MRI/MRCP due to severe claustrophobia
- Will need transplant hepatology evaluation out pt basis
- Continue ETOH abstinence
-If patient to be discharged today will recommend follow-up BMP in 1 week. Will also recommend follow-up with PCP/pulmonary as outpatient
- OP FU with [facility] with Dr Prince arranged for 11/10 at 1130am. OP EGD cancelled and will be rescheduled post FU GI visit
Total Time Spent with Patient (in minutes): 35
Subjective
Subjective
Date of Service: October 16, 2023
Feeling better. Chest tube was removed. Awaiting on repeat chest x-ray. Denies any shortness of breath or abdominal pain
Objective
Data Reviewed
Laboratory Data:
Laboratory Results
10/16/23 05:47
10/16/23 05:47
Laboratory Results
PT 24.2 Sec (11.4-14.6) H 10/16/23 05:47
INR 2.15 10/16/23 05:47
APTT 42.4 Sec (23.4-35.0) H 10/13/23 17:47
Phosphorus 4.3 mg/dl (2.5-4.5) 10/14/23 03:27
Magnesium 1.9 mg/dl (1.6-2.3) 10/14/23 03:27
Total Bilirubin 3.7 mg/dl (0.2-1.3) H 10/16/23 05:47
AST 55 U/L (17-59) 10/16/23 05:47
ALT 37 U/L (0-50) 10/16/23 05:47
Alkaline Phosphatase 109 U/L (38-126) 10/16/23 05:47
Vital Signs and I&O:
Vital Signs
Temp Pulse Resp BP Pulse Ox
97.7 F 82 18 117/62 96
10/16/23 07:30 10/16/23 07:30 10/16/23 07:30 10/16/23 07:30 10/16/23 07:30
I&O
10/15/23 10/16/23 10/17/23
06:59 06:59 06:59
Intake Total 500 / 500 1050 / 1050
Output Total 5340 / 5340 2580 / 2580
Balance -4840 / -4840 -1530 / -1530
Physical Exam
Physical Exam
GI: Soft, Non Distended and Non Tender
[2023-10-16 11:11] VITALS: BP 111/53
--- NOTE | 2023-10-16 13:00 | W.PN.PUL3 ---
Today's Communication / Plan
-
Chest tube removed on 10/15/2023
Right apical pneumothorax seen this a.m. � Venturi mask placed and repeat CXR shows resolution of PTX
Repeat CXR tomorrow to follow-up opacification seen at the RLL
If repeat CXR tomorrow if stable then patient is cleared to go home; if RLL opacification persists then will defer antibiotics to primary team and he will need repeat CXR in about 4 to 6 weeks to follow the resolution; if RLL is normal then no
antibiotics are needed and no repeat imaging is needed either
Lasix and aldactone
MAP>65
Pulmonary service will continue to briefly follow. He needs to follow up with Hepatology with strict EtOH abstinence
Assessment
-
Assessment: 53-year-old male with a past medical history of alcoholic cirrhosis, hypertension and anal condyloma who presents with SOB plus cough X 6 weeks. Patient was sent to the ER from our office on 10/13/2023 due to shortness of breath with
hypoxia. He had a 6 MWT showing he needs 1 L O2 with ambulation and spirometry showed severe restriction. He also had RLE swelling. In the ER he was saturating 93% on room air, was otherwise afebrile to 98.4 �F, BP 143/79, RR: 18, and pulse rate
95. Labs showed Hb 13.2, platelets 78, INR 2.05, T. bili 5.2, elevated LFTs with ALT 51, AST 89, ALP 155, and albumin 3.3. CXR showed complete opacification of the right hemithorax with mass effect due to suspected large right-sided pleural
effusion with underlying mass/pneumonia not excluded. RLE ultrasound was negative for DVT. CT of the chest showed a very large right-sided pleural effusion with midline shift and and a small�moderate mount of ascites with nodular external contour
of the liver suggestive of cirrhosis. IR inserted a chest tube into the right hemithorax and serosanguineous fluid was removed. Fluid studies showed transudative fluid with WBC 355 and PMNs 17.5%. Fluid culture and cytology also sent. Follow-up
CXR done on morning of 10/13 showed improvement in the right-sided pleural effusion however there is still a persistently large right-sided pleural effusion. Pulmonary now consulted for further recommendations.
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
Impression:
#Right-sided pleural effusion with mass effect due to hepatohydrothorax from EtOH-cirrhosis
#Decompensated hepatic cirrhosis with ascites and right-sided hepatohydrothorax
#Distended gallbladder with mobile sludge without pericholecystic edema or Hickey sign
#Hx of alcohol abuse - abstinent from EtOH for several months now
#Thrombocytopenia � due to history of cirrhosis
#Chronic anemia
#Transaminitis with hyperbilirubinemia
Plan:
- Chest tube has been removed as of 10/15/2023 --> small right apical PTX seen this AM, likely not a true pneumothorax and likely represents air that accidentally got into pleural space while pt had chest tube in pleural space
- Pt placed onto Venturi mask 50% Fio2 --> repeat CXR this afternoon shows resolution of PTX
- Repeat CXR now shows some opacification in the RLL � suspect this is due to atelectasis, I will repeat CXR again tomorrow AM.
- Continue lasix and aldactone is needed to help reduce third spacing - this was already started by GI
- If re-accumulation of pleural fluid is too rapid then will need to refer to IR for TIPS and consider transfer to tertiary care center for liver transplant evaluation
- Maintain SpO2 >90-94% with supplemental O2 as needed
- Avoid incentive spirometer as this can worsen his PTX
- prn nebulized bronchodilators
- Trend LFTs and avoid hepatotoxic agents
- Replete electrolytes with K>4, Mg>2
- Maintain euglycemia with goal BG >100 and <180
- DVT ppx
Pulmonary service will continue to follow along. If CXR tomorrow morning appears stable then patient is cleared to go home. He needs to follow-up with hepatology as an outpatient.
Total time spent today was 35 minutes for this encounter. Time includes reviewing laboratory test/imaging results, reviewing pertinent medical records, obtaining and reviewing medical history, performing an appropriate exam, ordering medications,
tests and procedures. Time also includes documentation of this encounter, coordinating patient care and communicating with other healthcare professionals. Total time does not include separately billed tests performed on this date of service.
Data:
CXR 10-16-2023:
New findings suggesting mild right lower lobe pneumonia versus atelectasis. Considering the acute development, atelectasis is more likely. This film was taken during a limited inspiration.
No visualized pneumothorax.
CXR 10-15-2023:
Placement of right chest tube with significantly decreased right pleural fluid.
No findings to confirm pneumothorax.
CXR 10-13-2023:
Interval development of complete opacification right hemithorax with mass effect and shift of the mediastinum toward the left.
Findings most likely represent a large right pleural effusion. Underlying mass and/or pneumonia is not excluded radiographically.
CTA Chest 10-13-2023:
Examination is nondiagnostic for pulmonary embolism.
Very large right pleural effusion with mass effect and midline shift. Collapse of the right lung.
No significant left pleural effusion.
Small to moderate amount of ascites in the visualized upper abdomen. Nodular external contour of the visualized liver, suggestive of cirrhosis. Splenomegaly is present, as seen on previous ultrasound of the abdomen.
If there are persistent clinical symptoms highly suggestive of pulmonary embolism after right-sided thoracentesis, a repeat CT examination with pulmonary embolism protocol could be performed.
Subjective Data
-
Date of Service:
Date of Service: October 16, 2023
Chief Complaint: Pulmonary Follow Up
Subjective:
Patient seen today at bedside. He feels well overall, eager to go home. This morning on CXR there is a tiny right apical pneumothorax seen. Patient is asymptomatic. No chest pain, headache, fevers or chills, shortness of breath, diarrhea
reported.
Review of Systems
General: Other (Negative unless mentioned above)
Objective Data
Data Reviewed
Vital Signs / I&O / Oxygen:
Vital Signs
Temp Pulse Resp BP Pulse Ox
99.3 F 88 18 118/55 99
10/16/23 15:19 10/16/23 15:19 10/16/23 15:19 10/16/23 15:19 10/16/23 15:19
Intake and Output
10/15/23 10/16/23 10/17/23
06:59 06:59 06:59
Intake Total 500 / 500 1050 / 1050 720 / 720
Output Total 5340 / 5340 2580 / 2580
Balance -4840 / -4840 -1530 / -1530 720 / 720
SaO2 99
Nasal Cannula flow liters per 2
minute
Physical Exam
General: Respiratory Distress (negative) and Comfortable
HEENT: Normocephalic, Moist Mucous Membranes and Other (+icterus bilaterally)
Cardiovascular: S1-S2 and Peripheral Edema (+1 edema in the RLE; none seen in LLE)
Respiratory: Wheeze (Negative), Crackles (RLL), Rhonchi (Negative) and Accessory Resp Muscle Use (Negative)
GI: Soft, Non Distended, Non Tender and Normal Bowel Sounds
Neurology: AO x 3
Skin: Warm, Dry and Cyanosis (negative)
Labs/Micro/Reports
Lab Data
10/16/23 05:47
10/16/23 05:47
Laboratory Results
10/16/23
05:47
PT 24.2 H
INR 2.15
Microbiology
10/13/23 21:59 Pleural Fluid Body Fluid Culture - Preliminary
No Growth After 48 Hours
10/13/23 21:59 Pleural Fluid Gram Stain - Preliminary
[2023-10-16 15:19] VITALS: BP 118/55
[2023-10-16 19:39] VITALS: BP 118/62
== END 2023-10-16 21:52 | disposition home or self-care (01) | DRG 186 ==
LOC: 4 EAST ACU 20:21
PROVIDERS: Nurse Practitioner; Radiology Diagnostic Radiology; Registered Nurse; Student in an Organized Health Care Education/Training Program; ADMITTING PHYSICIAN Hospitalist; ATTENDING PHYSICIAN Family Medicine; CONSULT PHYSICIAN Internal Medicine Gastroenterology; EMERGENCY PHYSICIAN Emergency Medicine; OTHER PHYSICIAN Internal Medicine Critical Care Medicine
PROC: 0W9930Z Drainage of Right Pleural Cavity with Drainage Device, Percutaneous Approach (ICD-10-PCS; 2023-10-14)
DX: J90 Pleural effusion, not elsewhere classified (principal); J96.01 Acute respiratory failure with hypoxia; J94.8 Other specified pleural conditions; K70.31 Alcoholic cirrhosis of liver with ascites; I11.9 Hypertensive heart disease without heart failure; E66.09 Other obesity due to excess calories; D69.59 Other secondary thrombocytopenia; D64.9 Anemia, unspecified; K70.11 Alcoholic hepatitis with ascites; Z68.34 Body mass index [BMI] 34.0-34.9, adult
CPT/HCPCS: 88305; 32557; 71045; 71046; 71275; 76700; 80053; 82150; 82248; 82607; 82746; 82945; 83615; 83735; 83986; 84100; 84157; 84443; 85025; 85027; 85610; 85730; 87015; 87070; 87205; 88112; 89051; 93005; 93306; 93971; 93975; 96360; 99285; C1729; C1769; P9047; Q9950; Q9967

== ENCOUNTER → 2023-11-25 14:29 | Outpatient (REF) | payer OTHER, SELFPAY | LOC: HWRAD 14:29 | PROVIDERS: ATTENDING PHYSICIAN Nurse Practitioner Family | DX: K74.60 Unspecified cirrhosis of liver (principal) | CPT/HCPCS: 71046 ==

== ENCOUNTER 2023-12-01 07:31 | Emergency (ER) | payer OTHER, SELFPAY ==
[2023-12-01 07:45] VITALS: BP 128/75
--- NOTE | 2023-12-01 08:43 | ED.GENMED ---
History of Present Illness
General
Chief Complaint: Abnormal Lab Value
Source: patient
Exam Limitations: none
Time Seen by Provider: 12/01/23 07:59
Nursing documentation reviewed up to this point in time: agreed with
History of Present Illness
History of Present Illness:
Patient presents to ED for evaluation after an outpatient chest x-ray revealed worsening right pleural effusion. Of note, patient was admitted to the hospital last month at which time he was treated with chest tube secondary to large effusion,
secondary to likely liver cirrhosis. Patient otherwise has no complaints. Denies fever or chills. Denies chest pain or shortness of breath. Denies abdominal pain. Denies nausea or vomiting. Denies increased weight gain. Denies increased leg
swelling. Denies abdominal pain or swelling.
Past History
Past History
ED Past Medical History: HTN
ED Past Surgical History: Orthopedic
Review of Systems
Review of Systems
Allergies reviewed?: Yes
All Other Systems: ROS reviewed and negative except as documented in HPI and ROS
Constitutional: Reports no symptoms
EENT: Reports no symptoms
Respiratory: Reports no symptoms; Denies cough or trouble breathing
Cardiac: Reports no symptoms; Denies chest pain
ABD/GI: Reports no symptoms; Denies abdominal pain, nausea or diarrhea
Musculoskeletal: Reports no symptoms
Skin: Reports no symptoms
Neurological: Reports no symptoms
Phy Exam
Physical Exam
Physical Exam:
Physical Exam
General: no apparent distress, not acutely ill. afebrile
Head: nc/at. eomi
Neck: supple. no meningeal signs.
Heart: s1/s2 regular rate and rhythm, no murmur. equal radial pulses.
Lungs: no acute respiratory distress. clear bilaterally
Abdomen: normal bowel sounds. not tender.
Neuro: alert and oriented. no focal neurological deficits
Skin: no rash
Psychiatric: well kept. interactive and cooperative
Extremities: no edema. no calf tenderness.
Course
Vital Signs
Initial and Last Documented VS:
Initial Vital Signs
Temp Pulse Resp BP Pulse Ox
97.8 F 78 20 128/75 95
12/01/23 07:45 12/01/23 07:45 12/01/23 07:45 12/01/23 07:45 12/01/23 07:45
Last Documented Vital Signs
Temp Pulse Resp BP Pulse Ox
97.8 F 75 18 130/56 97
12/01/23 07:45 12/01/23 10:06 12/01/23 10:06 12/01/23 10:06 12/01/23 10:06
MDM/Problems Addressed
MDM/Problems Addressed:
Discussed with on-call helpdesk manager, Dr. Wasserman, regarding patient's presentation. As long as there is no evidence of infection and without any acute respiratory distress, does not feel that patient will benefit from another chest tube insertion.
In fact, chest tube may potentially cause more complication, i.e. infection. Pt will need underlying liver cirrhosis addressed, i.e. TIPS vs liver transplant.
Discussed with , combination machine tool setter GI physician. Will make an arrangement for continual outpatient evaluation.
*Critical Care Note
Total Time (30-74mins, 75-104mins- exclusive of procedures): Not Applicable
ED Attending Note
-
Portions of this chart may have been created with voice recognition software.� Occasional wrong word or��sound alike� substitutions may have occurred due to the inherent limitations of voice recognition software.
Discharge Plan
Departure
Patient Disposition: Home (Routine Discharge)
Date of Disposition: 12/01/23
Time of Disposition: 09:34
Patient with high blood pressure during this ER visit?: Yes
Discharge Problem:
Pleural effusion, Cirrhosis of liver
Instructions: Pleural effusion, Cirrhosis
Prescriptions:
No Action
olmesartan 20 mg Tablet
20 mg PO DAILY
spironolactone [Aldactone] 25 mg tablet
25 mg PO DAILY Qty: 30 0RF
lactulose 20 gram/30 mL Solution
20 g PO DAILY
thiamine HCl (vitamin B1) 100 mg tablet
100 mg PO DAILY
furosemide [Lasix] 20 mg tablet
40 mg PO DAILY
Referrals:
Edu Prince MD [Active] -
UNKNOWN - PT DOES,NOT KNOW [Family Provider] -
Activity Restrictions/Additional Instructions:
As discussed, please continue to follow up with your GI physician for further evaluation and treatment. Despite pleural effusion noted on CXR, another chest tube insertion is not recommended by helpdesk manager, as there is potential procedural
complications, i.e. infection, and fluid will re-accumulate due to underlying liver cirrhosis. Please consider returning to ED with worsening symptoms, ie. fever/shortness of breath/vomiting.
Interventions
Interventions:
*Risk Screen - Suicide Last Done: 12/01/23 07:45
*General Assessment Last Done: 12/01/23 07:45
*Neglect/Abuse Screening Last Done: 12/01/23 07:45
ED- Fall Risk Assessment Last Done: 12/01/23 09:35
*ED COVID-19 Vaccine History Last Done: 12/01/23 08:15
*Nursing Disposition Last Done: 12/01/23 10:08
Discharge Date and Time
Discharge Date/Time: 12/01/23 10:08
Print Language: LITHUANIAN
[2023-12-01 10:06] VITALS: BP 130/56
== END 2023-12-01 10:08 | disposition home or self-care (01) ==
LOC: EMR 07:31
PROVIDERS: EMERGENCY PHYSICIAN Emergency Medicine
DX: J90 Pleural effusion, not elsewhere classified (principal); K74.60 Unspecified cirrhosis of liver; I10 Essential (primary) hypertension; E78.5 Hyperlipidemia, unspecified
CPT/HCPCS: 99281

== ENCOUNTER → 2023-12-28 15:09 | Outpatient (REF) | payer OTHER, SELFPAY | LOC: HWRAD 15:09 | PROVIDERS: ATTENDING PHYSICIAN Nurse Practitioner Adult Health | DX: R06.02 Shortness of breath (principal) | CPT/HCPCS: 71046 ==

== ENCOUNTER 2024-02-11 06:20 | Day surgery (SDC) | payer OTHER, SELFPAY ==
[2024-02-11 07:20] VITALS: BMI 34.8
[2024-02-11 07:21] VITALS: BP 112/34; BMI 34.8
[2024-02-11 08:22] VITALS: BP 110/58
[2024-02-11 08:35] VITALS: BP 113/65
== END 2024-02-11 08:40 | disposition home or self-care (01) ==
LOC: SDS 06:20
PROVIDERS: ATTENDING PHYSICIAN Internal Medicine Gastroenterology
DX: I85.10 Secondary esophageal varices without bleeding (principal); K74.60 Unspecified cirrhosis of liver; K76.6 Portal hypertension; K31.89 Other diseases of stomach and duodenum
CPT/HCPCS: 43235

== ENCOUNTER 2025-01-31 20:44 | Inpatient (IN) | payer OTHER, SELFPAY ==
[2025-01-31] VITALS (8 sets, daily range): BP systolic 113–143; BP diastolic 55–81; BMI 35.4; BMI 36.4
--- NOTE | 2025-01-31 17:43 | EDRN ---
Pt states he arrives for TURK on walking. It goes away in 20 seconds after he stops activity. Pt states he was told last time he had pleural effusion that had to be drained.
[2025-01-31 18:09] LABS: Hematocrit 29.4 % (39.0-52.0); Hemoglobin 9.4 g/dL (13.0-18.0); Mean Corp Hgb Conc. 32.0 g/dL (33.0-37.0); Mean Corpuscular Volume 81.2 fL (80.0-94.0); Nucleated Red Blood Cells % 0 % (-); Platelet Count 104 10^3/uL (130-400); Red Cell Dist. Width 16.3 % (11.5-14.5)
--- NOTE | 2025-01-31 18:20 | ED.GENMED ---
History of Present Illness
General
Chief Complaint: Chest Pain
Source: patient
Exam Limitations: none
Time Seen by Provider: 01/31/25 18:04
Nursing documentation reviewed up to this point in time: agreed with
History of Present Illness
History of Present Illness:
54 yo male with h/o liver disease: portal HTN, esophageal varices, right pleural effusion presents with gradually increasing SOB over past month, has appt with Dr. Reyes next week but felt too SOB and came here. w h/o large R pleural effusion
10/2023 secondary to likely liver cirrhosis. treated with chest tube.
patient was admitted to the hospital 10/2023 at which time he was treated with chest tube secondary to large effusion, secondary to likely liver cirrhosis.
In ED 12/01/[address] Armstrong, decided no chest tube but Pt will need underlying liver cirrhosis addressed, i.e. TIPS vs liver transplant.
Past History
Past History
ED Past Medical History: HTN, Hypercholesterolemia and Other (liver cirrhosis)
ED Past Surgical History: Orthopedic
Social History
Tobacco: Non-smoker
Alcohol: Former
Personal: Single
Living: with family
Review of Systems
Review of Systems
Allergies reviewed?: Yes
All Other Systems: ROS reviewed and negative except as documented in HPI and ROS
Constitutional: Denies fever
Respiratory: Reports cough and trouble breathing
ABD/GI: Denies abdominal pain
Phy Exam
Physical Exam
Physical Exam:
GENERAL: No acute distress. A&Ox3.
CONSTITUTIONAL: Afebrile.
EYES: clear, conjunctivae normal
ENMT: moist mucus membranes, Pharynx nl
RESPIRATORY: Regular respirations, nonlabored, diminished breath sounds right lung, intermittent dry cough. Pulse ox 95% room air
CARDIOVASCULAR: Regular rate and rhythm, no murmurs, no rubs.
GI: Soft, nontender, normal BS
MUSCULOSKELETAL: Moves with ease. Well perfused.
SKIN: Warm, dry, pink
PSYCH: Normal mood and affect. Well kept, interactive and appropriate
NEUROLOGIC: Awake, alert and oriented. No focal neurological deficits
Scores
Heart Score for Chest Pain Patients
STEMI patient?: Not applicable
Course
Orders/Labs/Results
Orders:
Orders
01/31/25 16:25
Electrocardiogram (*1) Urgent
Reason for Study: Chest Pain
EKG- Treatment ONCE
01/31/25 17:49
Cardiac Monitoring- Treatment ONCE
IV Insert/Care/Rem.- Treatment PRN
01/31/25 17:59
Complete Blood Count/With Diff Urgent
Comprehensive Metabolic Panel Urgent
Pro-BNP [NT-proBNP] Urgent
Troponin I Urgent
01/31/25 18:04
CR Chest - 2 Views Urgent
Comment:
Reason For Exam: TURK
01/31/25 19:13
PULMONARY CONSULT Urgent
Consulting Provider: Ashley Lozoya
Was physician already notified: Yes
Reason for consult: R pleural effusion
Abnormal Lab Results
01/31/25
17:59
WBC 3.7 L 10^3/uL
(4.8-10.8)
RBC 3.62 L 10^6/uL
(4.70-6.10)
Hgb 9.4 L g/dL
(13.0-18.0)
Hct 29.4 L %
(39.0-52.0)
MCH 26.0 L pg
(27.0-31.0)
MCHC 32.0 L g/dL
(33.0-37.0)
RDW 16.3 H %
(11.5-14.5)
Plt Count 104 L 10^3/uL
(130-400)
Absolute Lymphs (auto) 0.7 L 10^3/uL
(1.2-3.4)
Lymphocytes % 18.1 L %
(20.5-51.1)
Monocytes % 17.0 H %
(1.7-9.3)
Chloride 109 H mmol/L
(98-107)
Total Bilirubin 1.9 H mg/dl
(0.2-1.3)
AST 65 H U/L
(17-59)
Albumin 3.1 L g/dl
(3.5-5.0)
01/31/25 17:59
01/31/25 17:59
Vital Signs
Initial and Last Documented VS:
Initial Vital Signs
Temp Pulse Resp BP Pulse Ox
98.6 F 94 18 139/67 98
01/31/25 16:29 01/31/25 16:29 01/31/25 16:29 01/31/25 16:29 01/31/25 16:29
Last Documented Vital Signs
Temp Pulse Resp BP Pulse Ox
98.6 F 88 30 143/61 95
01/31/25 16:29 01/31/25 19:41 01/31/25 19:41 01/31/25 19:41 01/31/25 19:41
MDM/Problems Addressed
Differential Diagnosis Includes:
Pulmonary effusion, CHF, pneumonia
MDM/Problems Addressed:
Admission room 4 Dk [address]za 54 MR [id number] yo Here now with gradually increasing SOB over past month, has appt with Dr. Reyes next week but felt too SOB and came here. w h/o large R pleural effusion 10/2023 secondary to likely liver cirrhosis.
treated with chest tube. Has large R pleural effusion again. No hypoxia, stable, admit, pulmonary consult in.
EKG: NSR heart rate 95
CBC: Hemoglobin 9.4
CMP with no clinically significant abnormality
Troponin normal
BNP normal
Chest x-ray showing a moderate to large right pleural effusion
Pt in no distress, not hypoxic
Hospitalist notified of admission.
Official xray report pending.
*Pulse Oximetry
SaO2: 95
Oxygen Mode of Delivery: Room air
Patient hypoxic: no
*EKG
EKG Intrepretation Date: 01/31/25
Interpretation: normal
Comparison EKG: no changes
Heart Rate: 95
Rate: normal
Rhythm: sinus
[place]: normal axis
Interval: normal interval
QRS Pattern: normal QRS
Ischemia: no ischemia
*Critical Care Note
Total Time (30-74mins, 75-104mins- exclusive of procedures): Not Applicable
ED Attending Note
-
Portions of this chart may have been created with voice recognition software.� Occasional wrong word or��sound alike� substitutions may have occurred due to the inherent limitations of voice recognition software.
Discharge Plan
Departure
Patient Disposition: Admit
Date of Disposition: 01/31/25
Time of Disposition: 19:12
Admit to: Med/Surg
Presentation/result/management discussed w/ accepting MD/DO: Hospitalist
Condition: Fair
Discharge Problem:
Pleural effusion on right
Prescriptions:
No Action
olmesartan 20 mg Tablet
20 mg PO DAILY
spironolactone [Aldactone] 25 mg tablet
25 mg PO DAILY Qty: 30 0RF
thiamine HCl (vitamin B1) 100 mg tablet
100 mg PO DAILY
furosemide [Lasix] 20 mg tablet
60 mg PO DAILY
Referrals:
UNKNOWN - PT DOES,NOT KNOW [Unknown Provider]
Interventions
Interventions:
*Risk Screen - Suicide Last Done: 01/31/25 16:29
*General Assessment Last Done: 01/31/25 17:42
*Neglect/Abuse Screening Last Done: 01/31/25 17:42
*ED- Fall Risk Assessment Last Done: 01/31/25 17:42
*ED COVID-19 Vaccine History Last Done: 01/31/25 17:42
ED- Cardiac Assessment Last Done: 01/31/25 18:09
Discharge Date and Time
Print Language: ANDORRAN
[2025-01-31 18:41] LABS: Troponin I < 0.012 ng/ml
[2025-01-31 18:58] LABS: ALT (SGPT) 28 U/L (0-50); AST (SGOT) 65 U/L (17-59); Albumin 3.1 g/dl (3.5-5.0); Alkaline Phosphatase 98 U/L (38-126); Blood Urea Nitrogen 13 mg/dl (9-20); Calcium 8.6 mg/dl (8.4-10.2); Carbon Dioxide 23 mmol/L (22-30); Chloride 109 mmol/L (98-107); Estimated Creatinine Clearance > 125 ml/min; Glucose 96 mg/dl (70-99); Potassium 4.3 mmol/L (3.5-5.1); Sodium 136 mmol/L (135-145); Total Protein 7.0 g/dl (6.3-8.2); eGFR > 60.00
--- NOTE | 2025-01-31 20:34 | HPS.HSE ---
Family Physician
-
Family Physician: * NONE
Chief Complaint
-
shortness of breath
History of Present Illness
54-year-old male past medical history of liver cirrhosis, alcoholic hepatitis, portal hypertension, esophageal varices, right pleural effusion secondary to liver cirrhosis, hypertension, obesity, presenting with gradually increasing shortness of
breath over the past month. Patient had an appointment with pulmonary next week felt too short of breath to wait until then. He denies any cough or chest pain. Denies fevers or chills. Denies any swelling in the legs or abdomen. Denies any
weight gain.
He did not drink alcohol for more than a year. Denies smoking or drugs.
He had large right pleural effusion in October 2023 secondary to likely liver cirrhosis that was treated with chest tube.
He denies any blood in the stool or black stool or changes in bowel habits. Denies vomiting blood. Denies fatigue or dizziness.
Medical History
Past Medical History
Past Medical History: Reports Other ( liver cirrhosis, alcoholic hepatitis, portal hypertension, esophageal varices, right pleural effusion secondary to liver cirrhosis, hypertension, obesity,)
Past Surgical History: Reports None
Social History
Tobacco: Non-smoker
Alcohol: None
Drug: None
Family History
Family History: Not pertinent
Allergies / Home Medications
Allergies reflects when Allergies were last updated in [facility].
Home Medications with original date entered in [facility]
Allergy/Medication List:
Allergies
Allergy/AdvReac Type Severity Reaction Status Date / Time
No Known Allergies Allergy Verified 01/31/25 16:29
Home Medications
olmesartan 20 mg tablet 20 mg PO DAILY Blood Pressure 10/13/23
spironolactone 25 mg tablet (Aldactone) 25 mg PO DAILY Cirrhosis #30 tabs 10/16/23
furosemide 20 mg tablet (Lasix) 60 mg PO DAILY 12/01/23
thiamine HCl (vitamin B1) 100 mg tablet 100 mg PO DAILY 12/01/23
Review of Systems
-
History Source: Patient
A 12 point ROS was completed and negative except as noted: Yes
Constitutional: Reports No Symptoms
EENT: Reports No Symptoms
Respiratory: Reports See HPI
Cardiac: Reports No Symptoms
Abdomen/GI: Reports No Symptoms
: Reports No Symptoms
Musculoskeletal: Reports No Symptoms
Skin: Reports No Symptoms
Neurological: Reports No Symptoms
Endocrine: Reports No Symptoms
Hematologic/Lymphatic: Reports No Symptoms
Psych: Reports No Symptoms
Physical Exam
Vital Signs
Vital Signs
Temp Pulse Resp BP Pulse Ox
98.6 F 90 24 133/55 95
01/31/25 16:29 01/31/25 20:00 01/31/25 20:00 01/31/25 20:00 01/31/25 20:00
Physical Exam
General: Well Developed, Well Nourished and No Apparent Distress
HEENT: NormoCephalic, Moist mucous membranes and Atraumatic
Respiratory: Other (decreased breath sounds right )
Cardiac: S1/S2 and Regular Rhythm; No Murmur or Rub
GI: Soft, Non Tender, Non Distended and Normal Bowel Sounds; No Organomegaly
Rectal: Deferred by Provider
Musculoskeletal: No Clubbing, No Cyanosis and No Edema
Skin: No Rash
Neuro: Nonfocal/grossly intact
Laboratory Results
-
01/31/25 17:59
01/31/25 17:59
Laboratory Results
Total Bilirubin 1.9 mg/dl (0.2-1.3) H 01/31/25 17:59
AST 65 U/L (17-59) H 01/31/25 17:59
ALT 28 U/L (0-50) 01/31/25 17:59
Alkaline Phosphatase 98 U/L (38-126) 01/31/25 17:59
Troponin I < 0.012 ng/ml 01/31/25 17:59
Data Reviewed
-
Lab Data: Labs Reviewed by me
Old Records: Reviewed
Impression/Plan
-
IMPRESSION:
PLAN:
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
# Prior large right pleural effusion in October 2023 secondary to cirrhosis treated with chest tube
- Chest x-ray shows large right pleural effusion, report pending
- IR for thoracentesis, fluid studies
-Cirrhosis appears well compensated
- Pulmonary consulted
#Progressive anemia suggestive of anemia of liver disease
- Hemoglobin downtrending from June 2023 from 14.9 down to 9.4 currently
- Initially macrocytic picture now becoming normocytic may be mixed macrocytic/microcytic
- Check iron studies, B12 and folate
- Check Hemoccult
- Outpatient follow-up with GI
Leukopenia/thrombocytopenia secondary to cirrhosis
- Stable
History of cirrhosis
- Continue Lasix, spironolactone
History of alcoholic hepatitis
History of former alcohol use disorder
- No longer drinks alcohol
Portal hypertension
Esophageal varices
Essential hypertension
- Continue olmesartan
Obesity
History of anal fissure
History of colonic polyps
Full code
DVT prophylaxis�heparin
Regular diet
[2025-01-31 22:23] LABS: Iron 55 ug/dl (49-181); LDH 202 U/L (120-246); Total Protein 6.9 g/dl (6.3-8.2)
[2025-01-31 22:32] LABS: Total Iron Binding Capacity 351 ug/dl (261-462)
[2025-01-31 23:37] LABS: Ferritin 20.9 ng/ml (17.9-464.0)
[2025-02-01] VITALS (7 sets, daily range): BP systolic 84–172; BP diastolic 41–92
[2025-02-01 00:08] LABS: Folate 9.9 ng/ml (2.76-20); Vitamin B12 886 pg/ml (239-931)
--- NOTE | 2025-02-01 00:46 | PTCARENOTE ---
Patient received from the ED around 9:15 pm. Patient walked from the stretcher to the bed. Patient is oriented X3, vital signs stable, and call lane within reach
[2025-02-01 07:53] LABS: Hematocrit 26.8 % (39.0-52.0); Hemoglobin 8.7 g/dL (13.0-18.0); Mean Corp Hgb Conc. 32.5 g/dL (33.0-37.0); Mean Corpuscular Volume 80.7 fL (80.0-94.0); Nucleated Red Blood Cells % 0 % (-); Platelet Count 97 10^3/uL (130-400); Red Cell Dist. Width 16.4 % (11.5-14.5)
[2025-02-01 08:20] LABS: ALT (SGPT) 27 U/L (0-50); AST (SGOT) 57 U/L (17-59); Albumin 2.8 g/dl (3.5-5.0); Alkaline Phosphatase 97 U/L (38-126); Blood Urea Nitrogen 12 mg/dl (9-20); Calcium 8.3 mg/dl (8.4-10.2); Carbon Dioxide 21 mmol/L (22-30); Chloride 112 mmol/L (98-107); Estimated Creatinine Clearance > 125 ml/min; Glucose 86 mg/dl (70-99); Potassium 4.2 mmol/L (3.5-5.1); Sodium 137 mmol/L (135-145); Total Protein 6.5 g/dl (6.3-8.2); eGFR > 60.00
[2025-02-01] MEDS: BENICAR 20 MG PO (08:35)
[2025-02-01] MEDS: VITAMIN B1 100 MG PO (08:35)
[2025-02-01] MEDS: ALDACTONE 25 MG PO (08:35)
[2025-02-01] MEDS: LASIX 60 MG PO (08:35)
[2025-02-01] MEDS: HEPARIN 5000 UNITS SC ×2 (08:35→20:28)
--- NOTE | 2025-02-01 09:26 | CON.PUL ---
Consultation
Consultation Request
Date/Time Consultation Requested: 01/31/25
Date/Time Consultation Performed: 02/01/25
Performing Provider: Topher
Reason for Consultation: Effusion
Medical History
-
History of Present Illness:
Patient is a 54-year-old male with past medical history of liver cirrhosis, alcoholic hepatitis, portal hypertension, esophageal varices, right pleural effusion secondary to liver cirrhosis, hypertension, obesity, presenting with gradually
increasing shortness of breath over the past month. Patient had an appointment with pulmonary next week felt too short of breath to wait until then. He denies any cough or chest pain. Denies fevers or chills. Denies any swelling in the legs or
abdomen. Denies any weight gain.
Had previous history of hepatic hydrothorax and hospitalization with chest tube placement in 2023. He notes he had not followed with pulmonary following that discharge and has not yet followed with Transplant team. Had called [place] transplant
but did not get call back for visit.
CXR showing recurrent pleural effusion. Denies abdominal swelling.
Past Medical History
Past Medical History: Other (see list below)
Social History
Tobacco: Non-smoker
Alcohol: None
Drug: None
Family History
Family History: Reviewed & Not Pertinent
Allergies / Home Medications
Allergies
Allergy/AdvReac Type Severity Reaction Status Date / Time
No Known Allergies Allergy Verified 01/31/25 16:29
Home Medications
�Medication �Instructions �Recorded �Confirmed �Last Taken �Type
olmesartan 20 mg tablet 20 mg PO DAILY Blood Pressure 10/13/23 01/31/25 02/10/24 18:00 History
spironolactone 25 mg tablet 25 mg PO DAILY Cirrhosis #30 tabs 10/16/23 01/31/25 02/10/24 18:00 Rx
(Aldactone)
furosemide 20 mg tablet (Lasix) 60 mg PO DAILY Fluid 12/01/23 01/31/25 02/10/24 18:00 History
Retention/Swelling
thiamine HCl (vitamin B1) 100 mg 100 mg PO DAILY Supplement 12/01/23 01/31/25 02/10/24 18:00 History
tablet
Review of Systems
-
History Source: Patient
All other systems: Negative unless noted
Vitals / Labs / Diagnostic Testing
Vital Signs
Temp Pulse Resp BP Pulse Ox
98.3 F 87 18 135/64 95
02/01/25 07:35 02/01/25 07:35 02/01/25 07:35 02/01/25 07:35 02/01/25 07:35
Lab Data
02/01/25 06:59
02/01/25 06:59
Diagnostic Testing:
Physical Exam
-
HEENT: Normocephalic, Anicteric and Moist Mucous Membranes
Cardiovascular: S1/S2 and Regular Rhythm
Respiratory: Clear (decreased on R) and Non-Labored Respirations
GI: Soft, Non Distended and Non Tender
Neurology: Awake, Alert, Oriented and No Motor Deficits
Skin: Warm, Dry and Good Color
General: Comfortable and Other (NAD)
Assessment
-
Patient is a 54-year-old male with past medical history of liver cirrhosis, alcoholic hepatitis, portal hypertension, esophageal varices, right pleural effusion secondary to liver cirrhosis, hypertension, obesity, presenting with gradually
increasing shortness of breath over the past month. Patient had an appointment with pulmonary next week felt too short of breath to wait until then. CXR showing recurrent R sided effusion, we are consulted for evaluation 02/01/25.
Acute on chronic right-sided pleural effusion due to hepatohydrothorax/EtOH-cirrhosis
Decompensated hepatic cirrhosis with ascites and right-sided hepatohydrothorax
SOB
Pancytopenia
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
Chronic R sided pleural effusion/hepatohydrothorax s/p chest tube 10/13/2023
Alcoholic cirrhosis, MELD 22
Hypertension
Distended gallbladder with mobile sludge without pericholecystic edema or Hickey sign
Hx of alcohol abuse - abstinent from EtOH for several months now
Thrombocytopenia � due to history of cirrhosis
Chronic anemia
Transaminitis with hyperbilirubinemia
Anal condyloma
Plan:
Currently on RA
No history of lung disease in distant past, never smoker
Had previous history of hepatic hydrothorax and hospitalization with chest tube placement in 2023.
He notes he had not followed with pulmonary following that discharge and has not yet followed with Transplant team.
Had called [place] [facility] but did not get call back for visit.
CXR showing recurrent pleural effusion. Denies abdominal swelling.
IR consult for thoracentesis, would avoid chest tube placement this time
We discussed needing outpatient follow up to schedule repeated taps as needed
Ultimately he will need to make appt with transplant for more concrete treatment of his liver disease
Repeat CXR in next 24 hours to assess for reaccumulation
Will reschedule appt if he unable to attend, scheduled next week
Encouraged ambulation
Incentive spirometer
prn nebulized bronchodilators
Trend LFTs and avoid hepatotoxic agents
Replete electrolytes with K>4, Mg>2
Maintain euglycemia with goal BG >100 and <180
DVT ppx
Pulmonary service will continue to follow along.
If CXR tomorrow morning appears stable then patient is cleared to go home.
He needs to follow-up with pulmonary and hepatology as an outpatient.
Data:
CXR 01/31/25-Moderate to large right pleural effusion, significantly increasing since most recent radiograph. Small left pleural effusion, new since previous radiograph.
CXR 10-16-2023: New findings suggesting mild right lower lobe pneumonia versus atelectasis. Considering the acute development, atelectasis is more likely. This film was taken during a limited inspiration. No visualized pneumothorax.
CXR 10-15-2023: Placement of right chest tube with significantly decreased right pleural fluid. No findings to confirm pneumothorax.
CXR 10-13-2023: Interval development of complete opacification right hemithorax with mass effect and shift of the mediastinum toward the left. Findings most likely represent a large right pleural effusion. Underlying mass and/or pneumonia is not
excluded radiographically.
CTA Chest 10-13-2023: Examination is nondiagnostic for pulmonary embolism. Very large right pleural effusion with mass effect and midline shift. Collapse of the right lung. No significant left pleural effusion. Small to moderate amount of ascites in
the visualized upper abdomen. Nodular external contour of the visualized liver, suggestive of cirrhosis. Splenomegaly is present, as seen on previous ultrasound of the abdomen. If there are persistent clinical symptoms highly suggestive of pulmonary
embolism after right-sided thoracentesis, a repeat CT examination with pulmonary embolism protocol could be performed.
ECHO 10/14/23- Technically difficult study - Lumason contrast used. Normal biventricular size and systolic function without regional wall motion abnormality. Estimated LVEF 60-65%. Mild concentric left ventricular hypertrophy. Aortic sclerosis
without stenosis. No prior study available for comparison.
Total time spent today was 55 minutes for this encounter. Time includes reviewing laboratory test/imaging results, reviewing pertinent medical records, obtaining and reviewing medical history, performing an appropriate exam, ordering medications,
tests and procedures. Time also includes documentation of this encounter, coordinating patient care and communicating with other healthcare professionals. Total time does not include separately billed tests performed on this date of service.
--- NOTE | 2025-02-01 10:00 | W.PN.HOSP.TC ---
Today's Communication/Plan
-
IR thoracentesis. Pulmonary consult
Assessment / Plan
Assessment / Plan
Physical exam:
General: Well Developed, Well Nourished and No Apparent Distress
HEENT: Normocephalic, Atraumatic and Moist Mucous Membranes
Respiratory: Decreased breath sounds right base; Negative Wheezes, Rales or Rhonchi
Cardiac: Regular Rhythm and S1/S2
GI: Soft, Nontender and Nondistended
Musculoskeletal: No Clubbing, No Cyanosis and No Edema
Neuro: Awake, Alert and Oriented, no neurological deficit
Psych: Calm
A/P:
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
# Prior large right pleural effusion in October 2023 secondary to cirrhosis treated with chest tube
- Chest x-ray shows large right pleural effusion, report pending
- IR for thoracentesis, fluid studies today
-Cirrhosis appears well compensated
- Pulmonary consult appreciated
- Discussed with at bedside today
# Pancytopenia and progressive anemia suggestive of anemia of liver disease
- Hemoglobin downtrending from June 2023 from 14.9 down to 9.4 currently
- Initially macrocytic picture now becoming normocytic may be mixed macrocytic/microcytic
- Check iron studies, B12 and folate
- Check Hemoccult
- Outpatient follow-up with GI
Leukopenia/thrombocytopenia secondary to cirrhosis
- Stable
History of cirrhosis
- Continue Lasix, spironolactone
History of alcoholic hepatitis
History of former alcohol use disorder
- No longer drinks alcohol
Portal hypertension
Esophageal varices
Essential hypertension
- Continue olmesartan
Obesity
History of anal fissure
History of colonic polyps
Full code
DVT prophylaxis�heparin
Time spent 36 minutes
Anticipated Discharge: Within 24 hours
Subjective/Interval History
-
Date of Service: February 01, 2025
Patient still feels short of breath. No chest pain. Afebrile
Objective Data
-
Labs:
Laboratory Results
02/01/25
06:59
WBC 2.9 L
Hgb 8.7 L
Hct 26.8 L
Plt Count 97 L
Sodium 137
Potassium 4.2
Chloride 112 H
Carbon Dioxide 21 L
BUN 12
Creatinine 0.7
Glucose 86
Calcium 8.3 L
Total Bilirubin 2.1 H
AST 57
ALT 27
Alkaline Phosphatase 97
Vital Signs:
Vital Signs
Temp Pulse Resp BP Pulse Ox
98.3 F 87 18 135/64 95
02/01/25 07:35 02/01/25 07:35 02/01/25 07:35 02/01/25 07:35 02/01/25 07:35
I&O
01/31/25 02/01/25 02/02/25
06:59 06:59 06:59
Intake Total 120 / 120
Balance 120 / 120
[2025-02-01 14:26] LABS: Body Fluid Second Tech US
--- NOTE | 2025-02-01 15:15 | CM ---
Chart reviewed. Met with patient briefly for IA. Pt is status post thoracentesis. Lives in 2-story home with significant other. No hx of DME, VN or SNF. Confirmed 'no' PCP, RX is [facility], insurance, drug coverage, no insecurities identified.
Plan : Home with no needs
PCP- None
Rx- [facility]
[2025-02-02 02:59] VITALS: BP 113/52
[2025-02-02 07:03] LABS: INR 1.72; PT 20.7 Sec (11.4-14.6)
[2025-02-02 07:04] LABS: Hematocrit 26.1 % (39.0-52.0); Hemoglobin 8.4 g/dL (13.0-18.0); Mean Corp Hgb Conc. 32.2 g/dL (33.0-37.0); Mean Corpuscular Volume 80.8 fL (80.0-94.0); Platelet Count 98 10^3/uL (130-400); Red Cell Dist. Width 16.6 % (11.5-14.5)
[2025-02-02 07:12] LABS: ALT (SGPT) 24 U/L (0-50); AST (SGOT) 50 U/L (17-59); Albumin 2.5 g/dl (3.5-5.0); Alkaline Phosphatase 85 U/L (38-126); Blood Urea Nitrogen 16 mg/dl (9-20); Calcium 8.3 mg/dl (8.4-10.2); Carbon Dioxide 23 mmol/L (22-30); Chloride 112 mmol/L (98-107); Estimated Creatinine Clearance > 125 ml/min; Glucose 83 mg/dl (70-99); Potassium 4.1 mmol/L (3.5-5.1); Sodium 137 mmol/L (135-145); Total Protein 6.1 g/dl (6.3-8.2); eGFR > 60.00
[2025-02-02 07:35] VITALS: BP 107/55
[2025-02-02] MEDS: VITAMIN B1 100 MG PO (07:56)
[2025-02-02] MEDS: LASIX 60 MG PO (07:56)
[2025-02-02] MEDS: BENICAR 20 MG PO (07:57)
[2025-02-02] MEDS: HEPARIN 5000 UNITS SC (07:57)
[2025-02-02] MEDS: ALDACTONE 25 MG PO (07:57)
--- NOTE | 2025-02-02 09:13 | W.PN.PUL3 ---
Today's Communication / Plan
-
Doing well post tap, CXR appears stable
Keep appt with our office this Thursday, he understands
Would repeat imaging in next 1-2 weeks as OP and arrange thora if needed
Discharge planning otherwise per team
Assessment
-
Patient is a 54-year-old male with past medical history of liver cirrhosis, alcoholic hepatitis, portal hypertension, esophageal varices, right pleural effusion secondary to liver cirrhosis, hypertension, obesity, presenting with gradually
increasing shortness of breath over the past month. Patient had an appointment with pulmonary next week felt too short of breath to wait until then. CXR showing recurrent R sided effusion, we are consulted for evaluation 02/01/25.
Acute on chronic right-sided pleural effusion due to hepatohydrothorax/EtOH-cirrhosis
Decompensated hepatic cirrhosis with ascites and right-sided hepatohydrothorax
SOB
Pancytopenia
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
Chronic R sided pleural effusion/hepatohydrothorax s/p chest tube 10/13/2023
Alcoholic cirrhosis, MELD 22
Hypertension
Distended gallbladder with mobile sludge without pericholecystic edema or Hickey sign
Hx of alcohol abuse - abstinent from EtOH for several months now
Thrombocytopenia � due to history of cirrhosis
Chronic anemia
Transaminitis with hyperbilirubinemia
Anal condyloma
Plan:
Currently on RA
No history of lung disease in distant past, never smoker
Had previous history of hepatic hydrothorax and hospitalization with chest tube placement in 2023.
He notes he had not followed with pulmonary following that discharge and has not yet followed with Transplant team.
Had called [facility] but did not get call back for visit.
CXR showing recurrent pleural effusion. Denies abdominal swelling.
IR consult for thoracentesis, would avoid chest tube placement this time
We discussed needing outpatient follow up to schedule repeated taps as needed
Ultimately he will need to make appt with transplant for more concrete treatment of his liver disease
Repeat CXR in next 24 hours to assess for reaccumulation--negative
Can repeat imaging in 1-2 weeks for FU
Encouraged ambulation
Incentive spirometer
prn nebulized bronchodilators
Trend LFTs and avoid hepatotoxic agents
Replete electrolytes with K>4, Mg>2
Maintain euglycemia with goal BG >100 and <180
DVT ppx
Discharge planning per team
Has appt with our office this Thursday, encouraged to keep for follow up as OP
Data:
CXR 01/31/25-Moderate to large right pleural effusion, significantly increasing since most recent radiograph. Small left pleural effusion, new since previous radiograph.
CXR 10-16-2023: New findings suggesting mild right lower lobe pneumonia versus atelectasis. Considering the acute development, atelectasis is more likely. This film was taken during a limited inspiration. No visualized pneumothorax.
CXR 10-15-2023: Placement of right chest tube with significantly decreased right pleural fluid. No findings to confirm pneumothorax.
CXR 10-13-2023: Interval development of complete opacification right hemithorax with mass effect and shift of the mediastinum toward the left. Findings most likely represent a large right pleural effusion. Underlying mass and/or pneumonia is not
excluded radiographically.
CTA Chest 10-13-2023: Examination is nondiagnostic for pulmonary embolism. Very large right pleural effusion with mass effect and midline shift. Collapse of the right lung. No significant left pleural effusion. Small to moderate amount of ascites in
the visualized upper abdomen. Nodular external contour of the visualized liver, suggestive of cirrhosis. Splenomegaly is present, as seen on previous ultrasound of the abdomen. If there are persistent clinical symptoms highly suggestive of pulmonary
embolism after right-sided thoracentesis, a repeat CT examination with pulmonary embolism protocol could be performed.
ECHO 10/14/23- Technically difficult study - Lumason contrast used. Normal biventricular size and systolic function without regional wall motion abnormality. Estimated LVEF 60-65%. Mild concentric left ventricular hypertrophy. Aortic sclerosis
without stenosis. No prior study available for comparison.
Total time spent today was 40 minutes for this encounter. Time includes reviewing laboratory test/imaging results, reviewing pertinent medical records, obtaining and reviewing medical history, performing an appropriate exam, ordering medications,
tests and procedures. Time also includes documentation of this encounter, coordinating patient care and communicating with other healthcare professionals. Total time does not include separately billed tests performed on this date of service.
Subjective Data
-
Date of Service:
Date of Service: February 02, 2025
Chief Complaint: Pulmonary Follow Up
Subjective:
Doing well post tap, no new complaints
Stable on RA
Objective Data
Data Reviewed
Vital Signs / I&O / Oxygen:
Vital Signs
Temp Pulse Resp BP Pulse Ox
98.2 F 77 16 107/55 94
02/02/25 07:35 02/02/25 07:35 02/02/25 07:35 02/02/25 07:35 02/02/25 07:35
Intake and Output
02/01/25 02/02/25 02/03/25
06:59 06:59 06:59
Intake Total 120 / 120 1280 / 1280
Balance 120 / 120 1280 / 1280
SaO2 94
Physical Exam
General: Comfortable and Other (NAD)
HEENT: Normocephalic, Anicteric and Moist Mucous Membranes
Cardiovascular: S1-S2 and Regular Rhythm
Respiratory: Clear and Non-Labored Respirations
GI: Soft, Non Distended and Non Tender
Neurology: Awake, Alert, Oriented and No Motor Deficits
Skin: Warm, Dry and Good Color
Labs/Micro/Reports
Lab Data
02/02/25 06:14
02/02/25 06:14
Laboratory Results
02/02/25
06:14
PT 20.7 H
INR 1.72
Microbiology
02/01/25 12:15 Pleural Fluid Gram Stain - Preliminary
01/31/25 12:15 Pleural Fluid Fungal Culture - Preliminary
Culture in progress.
Positive cultures are reported as soon as detected.
Final report to follow in four to five weeks.
[2025-02-02 11:40] VITALS: BP 103/50
--- NOTE | 2025-02-02 12:13 | W.PN.HOSP.TC ---
Today's Communication/Plan
-
Discharge plan
Assessment / Plan
Assessment / Plan
Physical exam:
General: Well Developed, Well Nourished and No Apparent Distress
HEENT: Normocephalic, Atraumatic and Moist Mucous Membranes
Respiratory: Clear to Auscultation; Negative Wheezes, Rales or Rhonchi
Cardiac: Regular Rhythm and S1/S2
GI: Soft, Nontender and Nondistended
Musculoskeletal: No Clubbing, No Cyanosis and No Edema
Neuro: Awake, Alert and Oriented
Psych: Calm
A/P:
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
# Prior large right pleural effusion in October 2023 secondary to cirrhosis treated with chest tube
- Chest x-ray shows large right pleural effusion, report pending
- IR for thoracentesis, fluid studies--> 2.8 L fluid yesterday. He feels well today. He had a follow-up chest x-ray yesterday unremarkable and a follow-up chest x-ray today that shows possible loculated fluid and pneumonia but on my personal view
there is no evidence of such and is actually much improved. I reached out to pulmonary and they feel the same and chest x-ray unremarkable from their standpoint he can be discharged today 02/02.
-Cirrhosis appears well compensated
- Pulmonary consult appreciated
- Discussed with at bedside yesterday
# Pancytopenia and progressive anemia suggestive of anemia of liver disease
- Hemoglobin downtrending from June 2023 from 14.9 down to 9.4 currently
- Initially macrocytic picture now becoming normocytic may be mixed macrocytic/microcytic
- Check iron studies, B12 and folate
- Check Hemoccult
- Outpatient follow-up with GI
Leukopenia/thrombocytopenia secondary to cirrhosis
- Stable
History of cirrhosis
- Continue Lasix, spironolactone
History of alcoholic hepatitis
History of former alcohol use disorder
- No longer drinks alcohol
Portal hypertension
Esophageal varices
Essential hypertension
- Continue olmesartan
Obesity
History of anal fissure
History of colonic polyps
Full code
DVT prophylaxis�heparin
Anticipated Discharge: Today
Subjective/Interval History
-
Date of Service: February 02, 2025
No shortness of breath today. Afebrile
Objective Data
-
Labs:
Laboratory Results
02/02/25
06:14
WBC 2.6 L
Hgb 8.4 L
Hct 26.1 L
Plt Count 98 L
PT 20.7 H
INR 1.72
Sodium 137
Potassium 4.1
Chloride 112 H
Carbon Dioxide 23
BUN 16
Creatinine 0.7
Glucose 83
Calcium 8.3 L
Total Bilirubin 1.5 H
AST 50
ALT 24
Alkaline Phosphatase 85
Vital Signs:
Vital Signs
Temp Pulse Resp BP Pulse Ox
97.9 F 76 16 103/50 95
02/02/25 11:40 02/02/25 11:40 02/02/25 11:40 02/02/25 11:40 02/02/25 11:40
I&O
02/01/25 02/02/25 02/03/25
06:59 06:59 06:59
Intake Total 120 / 120 1280 / 1280
Balance 120 / 120 1280 / 1280
--- NOTE | 2025-02-02 12:17 | W.DCSUMMARY ---
Discharge Summary
Discharge Data
Date of Admission: 01/31/25
Date of Discharge: 02/02/25
Total time spent discharging patient (in min): 32
-
Pending Results: No
Hospital Course
Patient 54 years old male history of liver cirrhosis, alcoholic hepatitis, portal hypertension, esophageal varices, right pleural effusion in the past secondary to liver cirrhosis, hypertension, obesity, came into the hospital shortness of breath
and found to have recurrent right pleural effusion. IR consulted and he had a thoracentesis with 2.8 L out on 02/01. Pulmonary consulted as well. Pulmonary felt this was related to his liver disease and there was no need for chest tube placement.
He had a follow-up chest x-ray that shows improvement. Radiology reports some abnormalities in the follow-up chest x-ray but I reviewed with pulmonary and there is no concerns for infection or loculated effusion at the moment. Pulmonary cleared
him for discharge. Patient is symptomatically improved. He is on room air. Patient is hemodynamically stable and afebrile. He will be discharged in relatively stable condition today.
Discharge duration: 32 minutes
Discharge Plan
-
Patient Disposition: Home (Routine Discharge)
Discharge Diagnosis/Procedures: Recurrent right pleural effusion due to hepato-hydrothorax. Pancytopenia. Liver cirrhosis.
Diet: Low Cholesterol
Activity: As tolerated
Blood Work: Please PCP to order CBC, CMP, INR within 1 week
Others Tests: Pulmonary will repeat chest x-ray as outpatient in 1 to 2 months.
Specialty Instructions: Weigh Daily- Call MD for wt gain/loss 3 lbs overnight/5 lbs in 1 week
Referrals:
Primary care provider [Other] - in less than 1 week
Sue Obando, DO [Active, Pulmonary Medicine] - in two weeks
Referral Note: can reschedule upcoming visit if not discharged prior to
PFT w/ appt
NONE,* [Family Provider, Internal Medicine]
Prescriptions:
Continued
olmesartan 20 mg Tablet
20 mg PO DAILY
spironolactone [Aldactone] 25 mg tablet
25 mg PO DAILY Qty: 30 0RF
thiamine HCl (vitamin B1) 100 mg tablet
100 mg PO DAILY
furosemide [Lasix] 20 mg tablet
60 mg PO DAILY
Discharge Orders:
Discharge Patient (As Directed); Ordered 02/02/25
Ordered By: Dennys Cheatham
Discharge Date and Time
Discharge Date/Time: 02/02/25 14:21
Print Language: AFGHAN
--- NOTE | 2025-02-02 14:44 | CM ---
Chart reviewed. Pt discharged to home without needs.
== END 2025-02-02 14:21 | disposition home or self-care (01) | DRG 433 ==
LOC: 4 WEST ACU 20:44
PROVIDERS: Radiology Vascular & Interventional Radiology; ADMITTING PHYSICIAN Hospitalist; ATTENDING PHYSICIAN Hospitalist; EMERGENCY PHYSICIAN Emergency Medicine; OTHER PHYSICIAN Internal Medicine
PROC: 0B9N3ZZ Drainage of Right Pleura, Percutaneous Approach (ICD-10-PCS; 2025-02-01)
DX: K70.31 Alcoholic cirrhosis of liver with ascites (principal); D61.818 Other pancytopenia; J91.8 Pleural effusion in other conditions classified elsewhere; I85.10 Secondary esophageal varices without bleeding; J94.8 Other specified pleural conditions; K76.6 Portal hypertension; E78.00 Pure hypercholesterolemia, unspecified; I10 Essential (primary) hypertension; A63.0 Anogenital (venereal) warts; F10.11 Alcohol abuse, in remission; E66.9 Obesity, unspecified; K70.11 Alcoholic hepatitis with ascites; Z79.899 Other long term (current) drug therapy; Z68.35 Body mass index [BMI] 35.0-35.9, adult
CPT/HCPCS: 32555; 71045; 71046; 80053; 82150; 82607; 82728; 82746; 82945; 83540; 83550; 83615; 83880; 83986; 84155; 84157; 84478; 84484; 85025; 85027; 85610; 87015; 87070; 87102; 87116; 87205; 87206; 88112; 88305; 89051; 93005; 99285

== ENCOUNTER → 2025-02-08 12:05 | Outpatient (REF) | payer OTHER, SELFPAY | LOC: HWRAD 12:05 | PROVIDERS: ATTENDING PHYSICIAN Nurse Practitioner Family; FAMILY PHYSICIAN Student in an Organized Health Care Education/Training Program | DX: R06.02 Shortness of breath (principal); J90 Pleural effusion, not elsewhere classified | CPT/HCPCS: 71046 ==

== ENCOUNTER → 2025-02-10 07:12 | Outpatient (REF) | payer OTHER, SELFPAY ==
[2025-02-10 07:30] VITALS: BP 138/63; BP_SYST 84
[2025-02-10 08:00] VITALS: BP 116/57; BP_SYST 83
[2025-02-10 08:21] VITALS: BP 116/57
[2025-02-10 11:06] LABS: Body Fluid Second Tech SS
== END ==
LOC: RADI 07:12
PROVIDERS: ATTENDING PHYSICIAN Student in an Organized Health Care Education/Training Program; OTHER PHYSICIAN Nurse Practitioner Family
DX: J90 Pleural effusion, not elsewhere classified (principal)
CPT/HCPCS: 32555; 71045; 82945; 83615; 84157; 87015; 87070; 87102; 87116; 87205; 87206; 88112; 88305; 89051

== ENCOUNTER → 2025-02-17 07:36 | Outpatient (REF) | payer OTHER, SELFPAY ==
[2025-02-17 07:45] VITALS: BP 128/69; BP_SYST 97
== END ==
LOC: RADI 07:36
PROVIDERS: ATTENDING PHYSICIAN Nurse Practitioner Family
DX: J90 Pleural effusion, not elsewhere classified (principal)
CPT/HCPCS: 32555; 71045

== ENCOUNTER → 2025-02-20 07:26 | Outpatient (REF) | payer OTHER, SELFPAY ==
[2025-02-20 07:48] VITALS: BP 132/72; BP_SYST 86
[2025-02-20 08:24] VITALS: BP 110/61; BP_SYST 100
== END ==
LOC: RADI 07:26
PROVIDERS: ATTENDING PHYSICIAN Nurse Practitioner Family
DX: J90 Pleural effusion, not elsewhere classified (principal)
CPT/HCPCS: 32555; 71045

== ENCOUNTER → 2025-02-23 07:42 | Outpatient (REF) | payer OTHER, SELFPAY ==
[2025-02-23 07:57] VITALS: BP 138/79; BP_SYST 102
[2025-02-23 08:09] VITALS: BP 130/77; BP_SYST 100
== END ==
LOC: RADI 07:42
PROVIDERS: ATTENDING PHYSICIAN Nurse Practitioner Family
DX: J90 Pleural effusion, not elsewhere classified (principal)
CPT/HCPCS: 32555; 71045

== ENCOUNTER → 2025-02-27 07:28 | Outpatient (REF) | payer OTHER, SELFPAY ==
[2025-02-27 07:41] VITALS: BP 142/80; BP_SYST 96
[2025-02-27 08:07] VITALS: BP 140/85
== END ==
LOC: RADI 07:28
PROVIDERS: ATTENDING PHYSICIAN Internal Medicine Critical Care Medicine
DX: J90 Pleural effusion, not elsewhere classified (principal)
CPT/HCPCS: 32555; 71045

== ENCOUNTER → 2025-03-02 09:55 | Outpatient (REF) | payer OTHER, SELFPAY ==
[2025-03-02 10:00] VITALS: BP 153/77; BP_SYST 97
[2025-03-02 10:50] VITALS: BP 143/79
[2025-03-02 10:55] VITALS: BP 153/77; BP_SYST 97
== END ==
LOC: RADI 09:55
PROVIDERS: ATTENDING PHYSICIAN Internal Medicine Critical Care Medicine
DX: J90 Pleural effusion, not elsewhere classified (principal)
CPT/HCPCS: 32555; 71045

== ENCOUNTER 2025-03-04 14:00 | Inpatient (IN) | payer OTHER, SELFPAY ==
[2025-03-04] VITALS (11 sets, daily range): BP systolic 89–164; BP diastolic 64–101; BMI 34.1; BMI 36.1
[2025-03-04 11:22] LABS: Hematocrit 34.6 % (39.0-52.0); Hemoglobin 11.0 g/dL (13.0-18.0); Mean Corp Hgb Conc. 31.8 g/dL (33.0-37.0); Mean Corpuscular Volume 77.4 fL (80.0-94.0); Nucleated Red Blood Cells % 0 % (-); Platelet Count 127 10^3/uL (130-400); Red Cell Dist. Width 19.6 % (11.5-14.5)
[2025-03-04 11:51] LABS: Troponin I < 0.012 ng/ml
--- NOTE | 2025-03-04 11:56 | ED.GENMED ---
History of Present Illness
General
Chief Complaint: Breathing Problem
Source: patient and spouse
Exam Limitations: none
Time Seen by Provider: 03/04/25 11:52
Nursing documentation reviewed up to this point in time: agreed with
History of Present Illness
History of Present Illness:
Note:
CHIEF COMPLAINT(S)
Trouble breathing and abdominal distension.
HISTORY OF PRESENT ILLNESS
The patient is a 54-year-old female who presents with difficulty breathing. She has not been using supplemental oxygen at home. Symptoms have persisted for the past four weeks, during which she experiences shortness of breath several times a day.
She consulted a municipal services manager who suspected the issue may be gastrointestinal in origin, possibly linked to stomach distension. The patients abdomen is visibly enlarged and is reportedly filling with fluid, requiring drainage. She recounted that two
liters were removed and the fluid reaccumulated quickly, now presenting more on the left side. It is causing respiratory compromise, suspected to affect her oxygenation, which has been decreasing. There is an intention to schedule a drainage
procedure soon, potentially a paracentesis, which the patient acknowledged having heard about. She denies previous drainage procedures from the abdomen. Additionally, the patient was found to have decreased breath sounds bilaterally at lung bases
and fluid retention in her feet.
PAST MEDICAL HISTORY
The patient has a history of alcohol consumption, indicating she no longer drinks.
PHYSICAL EXAM
General: Patient appears in moderate respiratory distress.
Skin: Warm, dry, with evidence of fluid retention noted in the lower extremities.
Head: Normocephalic, atraumatic.
Neck: Supple, trachea midline.
Eye Ears, nose, mouth and throat: Oral mucosa moist.
Cardiovascular: Normal peripheral perfusion, but noted edema in lower extremities.
Respiratory: Decreased breath sounds at lung bases bilaterally.
Gastrointestinal: Abdomen is distended.
Back: Normal range of motion, Normal alignment.
Musculoskeletal: Normal ROM, normal strength noted; however, lower extremities demonstrate fluid retention.
Neurological: Alert and oriented to person, place, time, and situation, No focal neurological deficit observed.
Psychiatric: Cooperative, appropriate mood & affect.
PLAN
The patient will remain in the hospital for oxygen monitoring and likely fluid management. A drainage procedure is to be arranged, and a message is to be sent to the radiology department for coordination. The plan includes managing the patients
current respiratory needs and maintaining close monitoring for any deterioration.
DIFFERENTIAL DIAGNOSIS
The Differential Diagnosis includes, in no particular order and is not limited to:
1. Ascites secondary to hepatic dysfunction.
2. Congestive heart failure.
3. Pleural effusion.
4. Renal insufficiency.
5. Hepatic cirrhosis.
6. Respiratory failure secondary to underlying lung disease.
7. Malignant ascites.
8. Infection leading to peritoneal inflammation or effusion.
9. Adrenal insufficiency.
10. Nutritional deficiencies leading to fluid imbalance.
Disposition:
SUMMARY OF ENCOUNTER
The patient, a 54-year-old female, presented to the emergency department with difficulty breathing and abdominal distension. Initial examination revealed signs of moderate respiratory distress, decreased breath sounds at lung bases bilaterally, and
visible abdominal distension with fluid retention in lower extremities. A diagnosis of hepatic cirrhosis with ascites and bilateral pleural effusion was considered due to the underlying history and clinical presentation. The patients hypoxia and
fluid retention indicated the need for immediate intervention. Consultation with interventional radiology was sought to arrange a thoracentesis for fluid management and to improve respiratory status.
DISPOSITION
The patient will remain admitted to the hospital for ongoing management and monitoring.
ASSESSMENT
The patient is experiencing respiratory compromise secondary to bilateral pleural effusion and abdominal distension due to ascites, likely associated with hepatic cirrhosis. Hypoxia is present, and respiratory support may be needed if oxygenation
worsens.
MANAGEMENT OF THE PATIENTS CARE WAS DISCUSSED WITH
Consultation with interventional radiology was conducted to arrange for thoracentesis aimed at fluid removal and respiratory support to address hypoxia.
PLAN
The patient will undergo thoracentesis to drain pleural effusion. Continued monitoring of respiratory status and oxygenation is necessary. Fluid management will be a priority, and any necessary adjustments in the overall management plan will be
guided by interventional radiology findings.
MEDICAL DECISION MAKING
-Complexity of Data Reviewed: Chronic conditions affecting care include a history of alcohol consumption and potential hepatic dysfunction. Differential diagnosis considerations include ascites secondary to hepatic dysfunction, congestive heart
failure, pleural effusion, respiratory failure secondary to underlying lung disease, and hepatic cirrhosis.
-Data:
Category 3
Discussion of management with interventional radiology for thoracentesis to address pleural effusion and improve respiratory function.
DIAGNOSIS
- Hepatic cirrhosis (ICD-10: K74.60)
- Ascites (ICD-10: R18.8)
- Pleural effusion, bilateral (ICD-10: J90)
- Hypoxia (ICD-10: R09.02)
Past History
Past History
ED Past Medical History: HTN, Hypercholesterolemia and Other (liver cirrhosis)
ED Past Surgical History: Orthopedic
Social History
Tobacco: Non-smoker
Alcohol: Former
Personal: Single
Living: with family
Phy Exam
Physical Exam
Physical Exam:
.
Scores
Heart Failure Risk
Heart Failure Risk Score: Not Applicable
Sepsis
Sepsis Screening
Sepsis Assessment: Sepsis Ruled Out
Sepsis Screen
Sepsis Screen: Sepsis Ruled Out
Date: 03/04/25
Time: 12:12
Course
Orders/Labs/Results
Orders:
Orders
03/04/25 10:33
Electrocardiogram (*1) Urgent
Reason for Study: Shortness of Breath
Chest [CR Chest - 2 Views ] Urgent
Comment:
Reason For Exam: SOB
03/04/25 10:34
EKG- Treatment ONCE
03/04/25 11:15
Complete Blood Count/With Diff Urgent
Pro-BNP [NT-proBNP] Urgent
Troponin I Urgent
03/04/25 11:44
Comprehensive Metabolic Panel Urgent
Magnesium Urgent
Abnormal Lab Results
03/04/25
11:15
RBC 4.47 L 10^6/uL
(4.70-6.10)
Hgb 11.0 L g/dL
(13.0-18.0)
Hct 34.6 L %
(39.0-52.0)
MCV 77.4 L fL
(80.0-94.0)
MCH 24.6 L pg
(27.0-31.0)
MCHC 31.8 L g/dL
(33.0-37.0)
RDW 19.6 H %
(11.5-14.5)
Plt Count 127 L 10^3/uL
(130-400)
Absolute Lymphs (auto) 0.7 L 10^3/uL
(1.2-3.4)
Absolute Monos (auto) 0.9 H 10^3/uL
(0.1-0.6)
Lymphocytes % 13.9 L %
(20.5-51.1)
Monocytes % 16.5 H %
(1.7-9.3)
03/04/25 11:15
Vital Signs
Initial and Last Documented VS:
Initial Vital Signs
Temp Pulse Resp BP Pulse Ox
97.9 F 99 22 154/77 91
03/04/25 10:30 03/04/25 10:30 03/04/25 10:30 03/04/25 10:30 03/04/25 10:30
Last Documented Vital Signs
Temp Pulse Resp BP Pulse Ox
98.5 F 95 16 144/64 95
03/04/25 11:17 03/04/25 11:17 03/04/25 11:17 03/04/25 11:17 03/04/25 11:57
*Pulse Oximetry
SaO2: 95
Nasal Cannula flow liters per minute: 6
Oxygen Mode of Delivery: Room air
Patient hypoxic: yes
*Critical Care Note
Total Time (30-74mins, 75-104mins- exclusive of procedures): Not Applicable
ED Attending Note
-
Portions of this chart may have been created with voice recognition software.� Occasional wrong word or��sound alike� substitutions may have occurred due to the inherent limitations of voice recognition software.
Discharge Plan
Departure
Patient Disposition: Admit
Date of Disposition: 03/04/25
Time of Disposition: 12:07
Admit to: Telemetry
Presentation/result/management discussed w/ accepting MD/DO: Hospitalist
Patient with high blood pressure during this ER visit?: Yes
Condition: Fair
Discharge Problem:
Bilateral pleural effusion, Ascites, Cirrhosis of liver, Hypoxia
Prescriptions:
No Action
olmesartan 20 mg Tablet
20 mg PO DAILY
thiamine HCl (vitamin B1) 100 mg tablet
100 mg PO DAILY
furosemide [Lasix] 20 mg tablet
60 mg PO DAILY
spironolactone [Aldactone] 25 mg tablet
50 mg PO DAILY
Referrals:
Gurinder Rabago DO [Family Provider, Family Practice]
Interventions
Interventions:
*Risk Screen - Suicide Last Done: 03/04/25 10:30
*General Assessment Last Done: 03/04/25 10:30
*Neglect/Abuse Screening Last Done: 03/04/25 10:30
*ED- Fall Risk Assessment Last Done: 03/04/25 11:17
*ED COVID-19 Vaccine History Last Done: 03/04/25 10:30
ED- Cardiac Assessment Last Done: 03/04/25 11:17
ED- Pulmonary Assessment Last Done: 03/04/25 11:17
Discharge Date and Time
Print Language: URUGUAYAN
[2025-03-04 12:38] LABS: ALT (SGPT) 36 U/L (0-50); AST (SGOT) 101 U/L (17-59); Albumin 3.1 g/dl (3.5-5.0); Alkaline Phosphatase 136 U/L (38-126); Blood Urea Nitrogen 12 mg/dl (9-20); Calcium 7.9 mg/dl (8.4-10.2); Carbon Dioxide 26 mmol/L (22-30); Chloride 102 mmol/L (98-107); Estimated Creatinine Clearance > 125 ml/min; Glucose 99 mg/dl (70-99); Magnesium 1.9 mg/dl (1.6-2.3); Potassium 3.9 mmol/L (3.5-5.1); Sodium 130 mmol/L (135-145); Total Protein 7.4 g/dl (6.3-8.2); eGFR > 60.00
--- NOTE | 2025-03-04 13:42 | HPS.HSE ---
Family Physician
-
Family Physician: Gurinder Rabago
Chief Complaint
-
shortness of breath
History of Present Illness
54-year-old male is presenting with complaints of shortness of breath. Patient has a history of recurrent right-sided pleural effusion and underwent thoracentesis twice weekly. Patient underwent thoracentesis of the right side 2 days ago. Patient
feeling severely short of breath at home. Not able to lie completely flat. Unable to sleep at night due to breathing issues. Also stating of abdominal distention. No abdominal pain. Also complaining of lower extremity edema. States he takes
Lasix at home however his urinary output has decreased. States he has liver cirrhosis likely due to alcohol usage from the past. Currently states of feeling short of breath. Also setting of dry cough. 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
for his recurrent pleural effusions on the right side. Never had left-sided thoracentesis. Denies any prior history of paracentesis. States he also notices left right lower extremity edema this week. In the ER patient requiring 6 L of nasal
cannula oxygenation. Chest x-ray was done which showed bilateral pleural effusions.
Medical History
Past Medical History
Past Medical History: Reports Other
Additional Past Medical History:
Liver cirrhosis likely secondary to alcohol usage
History of alcohol usage
Recurrent pleural effusion status post thoracentesis
Anemia
Thrombocytopenia
Past Surgical History: Reports None
Social History
Tobacco: Non-smoker
Alcohol: Former (Used to drink greater than 6 beers a day multiple times a week. For greater than 10 years)
Living: With Family
Family History
Family History: Not pertinent
Allergies / Home Medications
Allergies reflects when Allergies were last updated in [facility].
Home Medications with original date entered in [facility]
Allergy/Medication List:
Allergies
Allergy/AdvReac Type Severity Reaction Status Date / Time
No Known Allergies Allergy Verified 03/04/25 10:32
Home Medications
olmesartan 20 mg tablet 20 mg PO DAILY Blood Pressure 10/13/23
furosemide 20 mg tablet (Lasix) 60 mg PO DAILY Fluid Retention/Swelling 12/01/23
thiamine HCl (vitamin B1) 100 mg tablet 100 mg PO DAILY Supplement 12/01/23
spironolactone 25 mg tablet (Aldactone) 50 mg PO DAILY Cirrhosis 02/08/25
Review of Systems
-
History Source: Patient and Family
Constitutional: Reports No Symptoms
EENT: Reports No Symptoms
Respiratory: Reports See HPI
Cardiac: Reports No Symptoms
Abdomen/GI: Reports See HPI
: Reports No Symptoms
Musculoskeletal: Reports Joint Swelling and Edema
Skin: Reports No Symptoms
Neurological: Reports No Symptoms
Endocrine: Reports No Symptoms
Hematologic/Lymphatic: Reports No Symptoms
Psych: Reports No Symptoms
Physical Exam
Vital Signs
Vital Signs
Temp Pulse Resp BP Pulse Ox
98.5 F 95 16 144/64 95
03/04/25 11:17 03/04/25 11:17 03/04/25 11:17 03/04/25 11:17 03/04/25 11:57
Physical Exam
General: Well Developed, Well Nourished, No Apparent Distress and Respiratory Distress
HEENT: NormoCephalic, Moist mucous membranes, Atraumatic, [place] Conjunctivae, Nose Appears Normal, Ears Appear Normal and Oxygen (6 L nasal cannula)
Respiratory: Decreased Breath Sounds and Other (Mildly tachypneic)
Cardiac: S1/S2 and Regular Rhythm; No Murmur or Rub
GI: Soft, Non Tender, Non Distended and Normal Bowel Sounds; No Organomegaly
Rectal: Deferred by Provider
Musculoskeletal: Edema, Left Lower Extremity and Edema, Right Lower Extremity (2-3+ pitting edema)
Skin: No Rash
Neuro: Awake, Alert, Oriented, AO x 3, No Motor Deficits and Nonfocal/grossly intact
Psych: Calm
Laboratory Results
-
03/04/25 11:15
03/04/25 12:06
Laboratory Results
Total Bilirubin 2.5 mg/dl (0.2-1.3) H 03/04/25 12:06
AST 101 U/L (17-59) H 03/04/25 12:06
ALT 36 U/L (0-50) 03/04/25 12:06
Alkaline Phosphatase 136 U/L (38-126) H 03/04/25 12:06
Troponin I < 0.012 ng/ml 03/04/25 11:15
Data Reviewed
-
Diagnostic Radiology: Report Reviewed by me, Discussed with Physician, Discussed with Patient and Discussed with Family
Lab Data: Labs Reviewed by me, Discussed with Patient and Discussed with Family
Impression/Plan
-
#Acute hypoxic respiratory failure likely secondary to pleural effusions
ER physician consulted interventional radiology for thoracentesis
Labs ordered
Wean oxygen as tolerated
Due to acuity of hypoxemia and tachypnea will monitor patient in IMU
Pulmonary evaluation
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
#Liver cirrhosis
Portal hypertension
Increase Lasix to 80 mg. Continue with Aldactone
Monitor creatinine and electrolytes closely
Check abdominal ultrasound to assess for ascites. If positive will require paracentesis.
Due to to see gastroenterology in 2 weeks as outpatient
Check Coags to calculate MELD score
#Lower extremity edema
Lasix dose increased
Check venous Doppler
Anemia/thrombocytopenia secondary to cirrhosis
Stable
History of former alcohol use disorder
No longer drinks alcohol
Essential hypertension
hold olmesartan as lasix dose increase. On Aldactone
History of anal fissure
History of colonic polyps
Full code
DVT prophylaxis�heparin
d/w with at bedside in details.
d/w with ER physician
I spent a total of 80 minutes with the patient or on the floor. More than 50% of this time involved counseling and coordination of care.
--- NOTE | 2025-03-04 15:00 | EDRN ---
this RN called the receiving IMU nurse Misael and gave verbal report
--- NOTE | 2025-03-04 15:05 | CM ---
CM met with pt and SO/Laxmi
They reside in a 2SH with 1STE, full flight to 2nd floor
Pt is independent with his ADLs
Denies use fo DME, works from home
Pt does not have a POA, declined advanced directive paperwork
SO/Laxmi is emergency contact
Pt is without PCP, has hx at [facility]
Pt currently under care of pulm office and receiving outpt thoracentesis 2x weekly
Rx- [facility]
Discharge Disposition- home, watch for pulm needs
--- NOTE | 2025-03-04 15:11 | EDRN ---
the pt was taken to IR by this RN
--- NOTE | 2025-03-04 15:59 | W.PN.UPDATE ---
Update Note
Progress Note Update
L thora: 2200 mL serosanguineous fluid removed.
--- NOTE | 2025-03-04 16:00 | EDRN ---
IR called and stated that they were finished with the pt, this RN will rock picker the pt from IR and take the pt to [facility] room #[id number]
--- NOTE | 2025-03-04 16:08 | CON.PUL ---
Consultation
Consultation Request
Date/Time Consultation Requested: 03/04/2025 - 1538
Date/Time Consultation Performed: 03/04/2025 - 1604
Requesting Provider: Dr. Oshea
Performing Provider: Dr. Ibarra
Reason for Consultation: SOB/hypoxia
Medical History
-
Chief Complaint: SOB
History of Present Illness:
54-year-old male with a past medical history of alcoholic cirrhosis, recurrent right-sided pleural effusion despite 7 thoracenteses since 02/01/2025 who presents with SOB. Patient had recent right-sided thoracentesis 2 days ago but then he says the
fluid 'comes right back.' He has been unable to lay flat and cannot sleep due to significant shortness of breath. His abdomen is also more distended and he says his right leg is also more swollen. He takes Lasix at home but his urine output has
been decreased. In the ER he is requiring up to 6 L/min nasal cannula and chest x-ray showed bilateral pleural effusions. IR consulted and he underwent a left-sided thoracentesis, removing 2.2 L of serosanguineous fluid. Patient admitted to the
IMU and pulmonary service consulted for additional management/recommendations.
When I saw the patient, he was sitting on the edge of his bed saying that he is having significant spasm in his left side of his belly. He says that this has happened before and that usually goes away but it is worse this time. Current heart rate
107, BP 134/69 and he saturating 90% on 6 L/min nasal cannula. He currently denies NICHOLS, chest pain, SOB at rest, nausea, fevers or chills.
PMHx: Alcoholic cirrhosis, anal condyloma, hypertension, history of alcoholic hepatitis, recurrent right-sided pleural effusion
PSHx: Anal condylomata surgery, colon polyp surgery, right broken arm surgery
Past Medical History
Past Medical History: Other (Above as per HPI)
Past Surgical History: Other (Above as per HPI)
Social History
Tobacco: Non-smoker
Alcohol: Former (Quit June 2023)
Drug: None
Family History
Family History: Hypertension (Father)
Allergies / Home Medications
Allergies
Allergy/AdvReac Type Severity Reaction Status Date / Time
No Known Allergies Allergy Verified 03/04/25 10:32
Home Medications
�Medication �Instructions �Recorded �Confirmed �Last Taken �Type
olmesartan 20 mg tablet 20 mg PO DAILY Blood Pressure 10/13/23 03/04/25 02/16/25 History
furosemide 20 mg tablet (Lasix) 60 mg PO DAILY Fluid 12/01/23 03/04/25 02/16/25 History
Retention/Swelling
thiamine HCl (vitamin B1) 100 mg 100 mg PO DAILY Supplement 12/01/23 03/04/25 02/16/25 History
tablet
spironolactone 25 mg tablet 50 mg PO DAILY Cirrhosis 02/08/25 03/04/25 02/16/25 History
(Aldactone)
Review of Systems
-
History Source: Patient
All other systems: Negative unless noted
Vitals / Labs / Diagnostic Testing
Vital Signs
Temp Pulse Resp BP Pulse Ox
98 F 88 23 149/82 96
03/04/25 15:10 03/04/25 16:00 03/04/25 16:00 03/04/25 15:10 03/04/25 16:00
Lab Data
03/04/25 11:15
03/04/25 12:06
Diagnostic Testing:
Physical Exam
-
HEENT: Normocephalic
Cardiovascular: S1/S2 and Peripheral Edema (+3 right lower extremity pitting edema, +2 left lower extremity pitting edema)
Respiratory: Wheeze (negative), Rales (Bilateral in bases), Rhonchi (negative), Non-Labored Respirations and Other (Diminished breath sounds at the bases bilaterally)
GI: Distended, Non Tender, Other (Firm abdomen although not rigid) and Other (hypoactive bowel sounds)
Neurology: Awake, Alert, Oriented and Tremors (negative)
Skin: Warm and Dry
General: Respiratory Distress (negative), Pain (Pain due to left-sided abdominal spasm), Fever (negative) and Chills (negative)
Assessment
-
Assessment: 54-year-old male with a past medical history of alcoholic cirrhosis, recurrent right-sided pleural effusion despite 7 thoracenteses since 02/01/2025 who presents with SOB. Patient had recent right-sided thoracentesis 2 days ago but then
he says the fluid 'comes right back.' He has been unable to lay flat and cannot sleep due to significant shortness of breath. His abdomen is also more distended and he says his right leg is also more swollen. He takes Lasix at home but his urine
output has been decreased. In the ER he is requiring up to 6 L/min nasal cannula and chest x-ray showed bilateral pleural effusions. IR consulted and he underwent a left-sided thoracentesis, removing 2.2 L of serosanguineous fluid. Patient
admitted to the IMU and pulmonary service consulted for additional management/recommendations.
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
Impression:
#Acute respiratory failure with hypoxia
#Bilateral pleural effusions � differential includes hepatohydrothorax vs acute decompensated heart failure (despite negative proBNP)
#Decompensated alcoholic cirrhosis with recurrent pleural effusions, ascites with history of grade 1 esophageal varices + portal hypertensive gastropathy (via EGD on 02/11/2024)
#Chronic anemia
#Chronic thrombocytopenia due to cirrhosis
#Hyponatremia due to cirrhosis possibly worsened due to reduced oral intake
#Transaminitis with hyperbilirubinemia (chronic)
Plan:
- Although patient had left-sided thoracentesis today with 2.2 L of serosanguineous fluid removed, this is his eighth thoracentesis of his since February 01, 2025 - all other thoras were from right-side
- Pleural fluid removed was transudative with total protein <2, LDH 113, and pH was 7.49 with fluid WBC 642 and monocyte predominant (84.7%)
- Follow-up pleural fluid culture + cytopathology (both pending)
- He would benefit most from a paracentesis
- Given that the pleural effusions are now bilateral (left-sided pleural effusion has been increasing since February 23, 2025), with orthopnea + increasing LE edema --> check echo
- He has significantly decompensated cirrhosis and GI/hepatology should be consulted; we should try to optimize his Lasix + Aldactone --> change PO lasix to 40mg IV BID and raise aldactone to 100mg daily
- Strict I/O with daily weight; sodium and fluid restricted diet
- Recommend him being seen at a liver transplant center to be evaluated for TIPS and possibly liver transplant
- Maintain SpO2 >90-94%, weaning down supplemental O2 flow rate as tolerated
- If patient becomes increasingly more SOB, would place him onto BiPAP and keep NPO
- Trend LFTs
- Check RUQ abd US with dopplers
- Check coags so we can calculate MELD-Na score
- Check LE duplex as his right leg swelling is worse than his left leg
- prn nebulized bronchodilators - not currently bronchospastic
- Incentive spirometer encouraged q1hr while awake
- Replete electrolytes with K>4, Mg>2
- Trend H/H and transfuse if needed to keep Hb>7g/dL; keep plt>20k, unless there is concern for bleeding then keep plt>50k
- Maintain euglycemia with goal BG >100 and <180; check HbA1C
- DVT ppx: HSQ
Pulmonary service will continue to follow along.
Total time spent today was 76 minutes for this encounter. Time includes reviewing laboratory test/imaging results, reviewing pertinent medical records, obtaining and reviewing medical history, performing an appropriate exam, ordering medications,
tests and procedures. Time also includes documentation of this encounter, coordinating patient care and communicating with other healthcare professionals. Total time does not include separately billed tests performed on this date of service.
[2025-03-04 16:53] LABS: Body Fluid Second Tech CMC
--- NOTE | 2025-03-04 17:15 | PTCARENOTE ---
Pt from ER on 6 L O2, walked to chair without incident. at bedside. Lungs are diminished, AAOx3 no co pain or cp or SOB.
[2025-03-04] MEDS: HEPARIN 5000 UNITS SC (20:32)
[2025-03-04] MEDS: METHOCARBAMOL 1500 MG PO (20:32)
--- NOTE | 2025-03-04 21:04 | PTCARENOTE ---
Assumed care of Pt at shift change; Pt found pacing in room and rapidly sitting and standing. Pt reports having cramping pain that moves location throughout torso, described as a 'juan m horse' in his belly. Administered Methocarbamol as per
MAR; refused ice/heat; Pt reported this happens to him at times and usually resolves on its own after a little while. Pain subsided ~ 10 minutes and patient was able to laydown and relax. Will continue to monitor and assess.
[2025-03-05] VITALS (13 sets, daily range): BP systolic 119–143; BP diastolic 64–85; BMI 36.1
[2025-03-05 06:34] LABS: ALT (SGPT) 33 U/L (0-50); AST (SGOT) 81 U/L (17-59); Albumin 2.7 g/dl (3.5-5.0); Alkaline Phosphatase 118 U/L (38-126); Blood Urea Nitrogen 11 mg/dl (9-20); Calcium 8.1 mg/dl (8.4-10.2); Carbon Dioxide 26 mmol/L (22-30); Chloride 102 mmol/L (98-107); Estimated Creatinine Clearance > 125 ml/min; Glucose 97 mg/dl (70-99); Magnesium 2.0 mg/dl (1.6-2.3); Potassium 4.1 mmol/L (3.5-5.1); Sodium 129 mmol/L (135-145); Total Protein 6.6 g/dl (6.3-8.2); eGFR > 60.00
[2025-03-05 07:06] LABS: INR 1.72; PT 20.3 Sec (11.4-14.6)
[2025-03-05 07:07] LABS: APTT 38.0 Sec (23.4-35.0)
--- NOTE | 2025-03-05 07:30 | PTCARENOTE ---
Received patient A&Ox4, on 6L NC, Sitting up in bed, NSR, BP WNL, GI/ continent. Pending Echo, US B/L LE, and US ABD.
[2025-03-05] MEDS: LASIX 40 MG IV ×2 (08:11→16:38)
[2025-03-05] MEDS: HEPARIN 5000 UNITS SC ×2 (08:13→20:42)
[2025-03-05] MEDS: ALDACTONE 100 MG PO (08:14)
[2025-03-05] MEDS: VITAMIN B1 100 MG PO (08:14)
[2025-03-05 09:57] LABS: Hematocrit 33.8 % (39.0-52.0); Hemoglobin 11.1 g/dL (13.0-18.0); Mean Corp Hgb Conc. 32.8 g/dL (33.0-37.0); Mean Corpuscular Volume 77.5 fL (80.0-94.0); Nucleated Red Blood Cells % 0.3 % (-); Platelet Count 113 10^3/uL (130-400); Red Cell Dist. Width 19.4 % (11.5-14.5)
--- NOTE | 2025-03-05 11:07 | W.PN.HOSP.TC ---
Today's Communication/Plan
-
Continue with aggressive diuresis
Abdominal ultrasound pending
Echo in the morning
GI evaluation
Assessment / Plan
Assessment / Plan
General: Well Developed, Well Nourished, No Apparent Distress and Respiratory Distress
HEENT: NormoCephalic, Moist mucous membranes, Atraumatic, [place] Conjunctivae, Nose Appears Normal, Ears Appear Normal and Oxygen (6 L nasal cannula)
Respiratory: Decreased breath sounds right side greater than left
Cardiac: S1/S2 and Regular Rhythm; No Murmur or Rub
GI: Soft, Non Tender, Distended and Normal Bowel Sounds; No Organomegaly
Rectal: Deferred by Provider
Musculoskeletal: Edema, Left Lower Extremity and Edema, Right Lower Extremity (2-3+ pitting edema)
Skin: No Rash
Neuro: Awake, Alert, Oriented, AO x 3, No Motor Deficits and Nonfocal/grossly intact
Psych: Calm
#Acute hypoxic respiratory failure likely secondary to pleural effusions
#Bilateral pleural effusions likely secondary to hepatic hydrothorax versus possibility of heart failure
Patient initially gets recurrent right-sided pleural effusions and receives biweekly thoracentesis. Left-sided pleural effusion is new in onset.
Status post 2 L of fluid removed from left-sided thoracentesis. Transudative in nature. Follow-up on the fluid culture and cytology results
May require repeat right-sided thoracentesis
Probably may require repeat thoracentesis of right side
Previous cytology results have been negative for malignancy.
Pulmonary is following
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
#Decompensated liver cirrhosis with recurrent pleural effusion, anemia, thrombocytopenia, hyponatremia, portal hypertension, esophageal varices
#Anasarca
#Portal hypertension
Currently with significant volume overload
Lasix 40 mg IV twice daily. Aldactone increased to 100 mg
Echocardiogram pending
Patient sodium MELD score of 22
GI evaluation
#Lower extremity edema
Lasix dose increased
Check venous Doppler
Anemia/thrombocytopenia secondary to cirrhosis
Monitor hemoglobin and platelets. Transfuse as needed.
History of former alcohol use disorder
No longer drinks alcohol
Essential hypertension
hold olmesartan as lasix dose increase. On Aldactone
Full code
DVT prophylaxis�heparin
Anticipated Discharge: > 48 hours
Subjective/Interval History
-
date of Service: March 05, 2025
States passing increasing urine after high dose of Lasix
Objective Data
-
Labs:
Laboratory Results
03/05/25 03/05/25
05:29 08:33
WBC Cancelled 5.8
Hgb Cancelled 11.1 L
Hct Cancelled 33.8 L
Plt Count Cancelled 113 L
PT 20.3 H
INR 1.72
APTT 38.0 H
Sodium 129 L
Potassium 4.1
Chloride 102
Carbon Dioxide 26
BUN 11
Creatinine 0.6 L
Glucose 97
Calcium 8.1 L
Total Bilirubin 3.0 H
AST 81 H
ALT 33
Alkaline Phosphatase 118
Vital Signs:
Vital Signs
Temp Pulse Resp BP Pulse Ox
98.1 F 88 16 127/64 96
03/05/25 07:35 03/05/25 08:14 03/05/25 06:15 03/05/25 08:14 03/05/25 06:15
Data Reviewed
-
Total Time Spent with Patient (in minutes): 58
--- NOTE | 2025-03-05 11:34 | CON.GI ---
Addendum entered and electronically signed by Mallorie Santos MD 03/05/25 17:25:
MELD 3.0 is 22, MELD NA 23
Original Note:
Consultation
-
Date/Time Consultation Requested: 03/05/2025
Date/Time Consultation Performed: 03/05/2025
Requesting Provider:
Performing Provider:
Reason for Consultation: ETOH cirrhosis with PE
Medical History
Chief Complaint / HPI
Chief Complaint: SOB, ETOH cirrhosis with recc PE
History of Present Illness:
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
heterozygous H63D presented with symptoms of shortness of breath, worsening abdominal distention and lower extremity edema. He says he has been compliant with his diuretics was on Lasix 60 mg and Aldactone 50 mg and 2 g sodium diet. He says he has
not had any alcohol for the past year and a half or 2 years. He has a new left-sided pleural effusion this admission and had a left thoracentesis with 2.2 L removed by IR yesterday. He does have a history of hepatic hydrothorax and has had
multiple thoracentesis but so far it was mostly only on the right side and he has only had minimal ascites in the past and did not require paracenteses before but now has worsening abdominal distention also. He has a history of massive right-sided
pleural effusion initially in October 2023 requiring almost 10 L drained and had a chest tube placed at that time and also developed pneumothorax and was on high flow oxygen and subsequently the chest tube was removed. He also was seen by Dr. Schulz in
01/2024 and was recommended TIPS and OLT evaluation but he says he has not followed up with him since then and he says he was unable to get hold of their office to reschedule. He does have an appointment with Dr. Prince on March 22 and has not
followed up with him since May. His bowel movements are regular there is no rectal bleeding or melena. He also denies any symptoms of reflux or nausea or vomiting, no fevers or chills. The studies so far in the past have shown a transudative
pleural effusion. He also had ultrasound with Dopplers last year and showed no occlusion. Reviewed Dr. Ibarra and he is scheduled for repeat echocardiogram, echocardiogram in the past showed normal EF. His lower extremity Dopplers this
admission have been negative for DVT. He did have an endoscopy for varices surveillance with Dr. Prince on 02/11/2024 and was noted to have nonbleeding grade 1 esophageal varices.
Past Medical History
Past Medical History: Other (Alcoholic cirrhosis with grade 1 E. 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
Past Surgical History: Other (multiple thoracentesis, Anal condylomata surgery, right broken arm surgery)
Social History
Tobacco: Non-Smoker
Alcohol: Former (Used to drink 10-15 beers a day for at least 25 years)
Living: With Family
Family History
Family History: Reviewed & Not Pertinent
Allergies / Home Medications
Allergy/AdvReac Type Severity Reaction Status Date / Time
No Known Allergies Allergy Verified 03/04/25 10:32
�Medication �Instructions �Recorded
olmesartan 20 mg tablet 20 mg PO DAILY Blood Pressure 10/13/23
furosemide 20 mg tablet (Lasix) 60 mg PO DAILY Fluid 12/01/23
Retention/Swelling
thiamine HCl (vitamin B1) 100 mg 100 mg PO DAILY Supplement 12/01/23
tablet
spironolactone 25 mg tablet 50 mg PO DAILY Cirrhosis 02/08/25
(Aldactone)
Review of Systems
-
All other systems: A 12 pt ROS was Negative except as stated above in HPI
Vital Signs
Temp Pulse Resp BP Pulse Ox
97.8 F 88 16 127/64 96
03/05/25 11:00 03/05/25 08:14 03/05/25 06:15 03/05/25 08:14 03/05/25 06:15
Physical Exam
Exam
General: No Apparent Distress
HEENT: Normocephalic
Respiratory: Other (Decreased breath sounds at the bases)
Cardiac: S1/S2
Breast: Other (Gynecomastia)
GI: Soft, Non Tender, Normal Bowel Sounds and Distended (Has ascites with umbilical hernia)
Musculoskeletal: No Clubbing and Edema (Bilateral lower extremity edema)
Skin: Warm
Neuro: Awake, Alert and Oriented
Psych: Calm
Results
WBC 5.8 10^3/uL (4.8-10.8) 03/05/25 08:33
Hgb 11.1 g/dL (13.0-18.0) L 03/05/25 08:33
Hct 33.8 % (39.0-52.0) L 03/05/25 08:33
MCV 77.5 fL (80.0-94.0) L 03/05/25 08:33
Plt Count 113 10^3/uL (130-400) L 03/05/25 08:33
Absolute Neuts (auto) 4.0 10^3/uL (1.4-6.5) 03/05/25 08:33
PT 20.3 Sec (11.4-14.6) H 03/05/25 05:29
INR 1.72 03/05/25 05:29
APTT 38.0 Sec (23.4-35.0) H 03/05/25 05:29
Sodium 129 mmol/L (135-145) L 03/05/25 05:29
Potassium 4.1 mmol/L (3.5-5.1) 03/05/25 05:29
Chloride 102 mmol/L (98-107) 03/05/25 05:29
Carbon Dioxide 26 mmol/L (22-30) 03/05/25 05:29
BUN 11 mg/dl (9-20) 03/05/25 05:29
Creatinine 0.6 mg/dL (0.7-1.3) L 03/05/25 05:29
Calcium 8.1 mg/dl (8.4-10.2) L 03/05/25 05:29
Total Bilirubin 3.0 mg/dl (0.2-1.3) H 03/05/25 05:29
AST 81 U/L (17-59) H 03/05/25 05:29
ALT 33 U/L (0-50) 03/05/25 05:29
Alkaline Phosphatase 118 U/L (38-126) 03/05/25 05:29
Diagnostic Image Results:
10/14/2023 US Abd W Abd Doppler
IMPRESSION: Patency and normal directional flow within the main portal vein, right portal vein, and left portal vein.
Patent hepatic veins. Spectral waveforms of the hepatic veins are dampened, which can be seen in association with cirrhosis.
Gallbladder is distended and contains a small amount of mobile sludge. No evidence for gallbladder wall thickening or pericholecystic edema.
Nodular external contour of the liver compatible with cirrhosis. Increased echogenicity of the liver, which is likely hepatocellular disease associated with cirrhosis. No sonographic evidence for a focal hepatic mass lesion.
Splenomegaly.
Pancreatic tail is unable to be adequately visualized. The upper abdominal aorta and the IVC are unable to be adequately visualized.
Prior GI Procedures:
EGD: 02/11/[address] Prince
Impression: - Grade I esophageal varices.
- Portal hypertensive gastropathy.
- Normal examined duodenum.
- No specimens collected.
Colonoscopy: 08/13/2022
Impression: - Three 2 to 6 mm polyps in the cecum, removed with a
cold snare. Resected and retrieved.- TA's
- One 6 mm polyp at the hepatic flexure, removed with
a cold snare. Resected and retrieved.- TA
- One 3 mm polyp at the splenic flexure, removed with
a cold snare. Resected and retrieved.- TA
- The examination was otherwise normal.
Assessment / Plan
-
1. Recurrent pleural effusion from hepatic hydrothorax mostly was right sided in the past and has needed almost 7 thoracenteses since January this time presents with left pleural effusion also and had 2.2 L drained on 03/04 with IR. He now also
seems to have worsening lower extremity edema and also worsening ascites. Will schedule him for a paracentesis also. He says he has been compliant with his diuretics and 2 g sodium diet and has been abstinent from alcohol for the past 2 years. He
also has hyponatremia likely related to Lasix will need to watch closely. he did see Dr. Schulz for TIPS evaluation and also OLT evaluation in January but unfortunately has not followed up since. I told him to follow-up after DC with hepatology he
says he may want to switch to [facility] since he was unable to get hold of the office to schedule with Dr. Schulz as per patient. Chest tube for hepatic hydrothorax is contraindicated so will avoid. May need to consider pleurodesis. He also
needs to be ruled out for new onset of CHF given that now he has anasarca and in which case TIPS may not be an option although echocardiogram in the past showed normal EF. Continue alcohol abstinence. Ultrasound with Dopplers in past no vascular
occlusion noted. He did have a repeat ultrasound will follow-up.
2. History of grade 1 nonbleeding esophageal varices on endoscopy in 2023.
3. Continue HCC surveillance with AFP and ultrasound every 6 months he was claustrophobic so was unable to get an MRI in the past.
Total Time Spent with Patient (in minutes): 70
Data Reviewed
-
Ultrasound: Report Reviewed by me
Old Records: Reviewed
Time spent with patient (in minutes): 70
-
-
Thank you for consultation and allowing me to participate in the patient's care. Please call the complaint evaluation officer GI physician during the after hours with any questions or concerns.
[2025-03-05 14:12] LABS: Glycohemoglobin (HgbA1c) 4.5 % (4.0-5.6)
--- NOTE | 2025-03-05 15:40 | W.PN.PUL3 ---
Today's Communication / Plan
-
Continue lasix and aldactone
Fluid and sodium restriction
IR consulted for paracentesis
He plans to see Dr. Schulz at [facility] to discuss liver transplant; he would also likely benefit from TIPS procedure
Also follows with GI here at with Dr. Prince
Pulmonary service will continue to follow along
Assessment
-
Assessment: 54-year-old male with a past medical history of alcoholic cirrhosis, recurrent right-sided pleural effusion despite 7 thoracenteses since 02/01/2025 who presents with SOB. Patient had recent right-sided thoracentesis 2 days ago but then
he says the fluid 'comes right back.' He has been unable to lay flat and cannot sleep due to significant shortness of breath. His abdomen is also more distended and he says his right leg is also more swollen. He takes Lasix at home but his urine
output has been decreased. In the ER he is requiring up to 6 L/min nasal cannula and chest x-ray showed bilateral pleural effusions. IR consulted and he underwent a left-sided thoracentesis, removing 2.2 L of serosanguineous fluid. Patient
admitted to the IMU and pulmonary service consulted for additional management/recommendations.
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
Impression:
#Acute respiratory failure with hypoxia
#Bilateral pleural effusions � differential includes hepatohydrothorax vs acute decompensated heart failure (despite negative proBNP)
#Decompensated alcoholic cirrhosis with recurrent pleural effusions, ascites with history of grade 1 esophageal varices + portal hypertensive gastropathy (via EGD on 02/11/2024)
#Chronic anemia
#Chronic thrombocytopenia due to cirrhosis
#Hyponatremia due to cirrhosis possibly worsened due to reduced oral intake
#Transaminitis with hyperbilirubinemia (chronic)
Plan:
- Although patient had left-sided thoracentesis on 03/04 with 2.2 L of serosanguineous fluid removed, this is his eighth thoracentesis since February 01, 2025 - all 7 other other thoras were from right-side
- Pleural fluid removed was transudative with total protein <2, LDH 113, and pH was 7.49 with fluid WBC 642 and monocyte predominant (84.7%)
- Follow-up pleural fluid culture + cytopathology (both pending)
- He would benefit most from a paracentesis
- Given that the pleural effusions are now bilateral (left-sided pleural effusion has been increasing since February 23, 2025), with orthopnea + increasing LE edema --> check echo
- He has significantly decompensated cirrhosis and GI/hepatology should be consulted; we should try to optimize his Lasix + Aldactone --> Dr. Ibarra changed PO lasix to 40mg IV BID and raised aldactone to 100mg daily
- Strict I/O with daily weight; sodium and fluid restricted diet
- Recommend him being seen at a liver transplant center to be evaluated for TIPS and possibly liver transplant
- Maintain SpO2 >90-94%, weaning down supplemental O2 flow rate as tolerated
- If patient becomes increasingly more SOB, would place him onto BiPAP and keep NPO
- Trend LFTs
- Abd US shows moderate amount of ascites + bilateral pleural effusions --> no mention of hepatic vein thrombosis or mass seen in liver
- MELD-Na = 23 on 03/05/2025
- LE duplex is negative for DVT
- prn nebulized bronchodilators - not currently bronchospastic
- Incentive spirometer encouraged q1hr while awake
- Replete electrolytes with K>4, Mg>2
- Trend H/H and transfuse if needed to keep Hb>7g/dL; keep plt>20k, unless there is concern for bleeding then keep plt>50k
- Maintain euglycemia with goal BG >100 and <180; check HbA1C
- DVT ppx: HSQ
Pulmonary service will continue to follow along.
Total time spent today was 38 minutes for this encounter. Time includes reviewing laboratory test/imaging results, reviewing pertinent medical records, obtaining and reviewing medical history, performing an appropriate exam, ordering medications,
tests and procedures. Time also includes documentation of this encounter, coordinating patient care and communicating with other healthcare professionals. Total time does not include separately billed tests performed on this date of service.
Subjective Data
-
Date of Service:
Date of Service: March 05, 2025
Chief Complaint: Pulmonary Follow Up
Subjective:
Pt seen this AM (late note entry). He feels well today. Breathing better. Abdomen still tight and distended. BP 119/71, HR 92 and saturating 94% on 6L/min. He denies chest pain, abd pain, spasm, N/V/f/c.
Review of Systems
General: Other (negative unless mentioned above)
Objective Data
Data Reviewed
Vital Signs / I&O / Oxygen:
Vital Signs
Temp Pulse Resp BP Pulse Ox
98.1 F 88 16 127/64 96
03/05/25 07:35 03/05/25 08:14 03/05/25 06:15 03/05/25 08:14 03/05/25 06:15
SaO2 96
Nasal Cannula flow liters per 6
minute
Physical Exam
General: Respiratory Distress (negative), Comfortable and Chills (negative)
HEENT: Normocephalic and Moist Mucous Membranes
Cardiovascular: S1-S2, Rub (negative) and Peripheral Edema (+2 LE pitting edema bilaterally)
Respiratory: Wheeze (negative), Crackles (left middle lung field), Rhonchi (negative), Non-Labored Respirations and Other (Diminished BS at right middle lobe to right lower lobe regions)
GI: Distended (+fluid wave)
Neurology: Awake, Alert, Oriented and Tremors (negative)
Skin: Warm, Dry, Cyanosis (negative) and Jaundice (negative)
Labs/Micro/Reports
Lab Data
03/05/25 08:33
03/05/25 05:29
Laboratory Results
03/05/25
05:29
PT 20.3 H
INR 1.72
APTT 38.0 H
Microbiology
03/04/25 15:38 Pleural Fluid Gram Stain - Preliminary
[2025-03-06] VITALS (9 sets, daily range): BP systolic 89–146; BP diastolic 54–81; O2SAT 86–93
--- NOTE | 2025-03-06 04:43 | PTCARENOTE ---
Pt continues awake and alert. Denies complaints at this time. Maintained 6L NC. Call lane within reach.
[2025-03-06 06:28] LABS: INR 1.73; PT 20.4 Sec (11.4-14.6)
[2025-03-06 06:31] LABS: Hematocrit 32.2 % (39.0-52.0); Hemoglobin 10.2 g/dL (13.0-18.0); Mean Corp Hgb Conc. 31.7 g/dL (33.0-37.0); Mean Corpuscular Volume 77.8 fL (80.0-94.0); Nucleated Red Blood Cells % 0 % (-); Platelet Count 112 10^3/uL (130-400); Red Cell Dist. Width 19.6 % (11.5-14.5)
--- NOTE | 2025-03-06 07:12 | W.PN.GI.CBS2 ---
Today's Communication / Plan
-
Paracenteses today
Continue diuretics
Outpatient eval for TIPS versus OLT has an appointment with Dr. Ruts
Assessment / Plan
-
1. Recurrent pleural effusion from hepatic hydrothorax mostly was right sided in the past and has needed almost 7 thoracenteses since January this time presents with left pleural effusion also and had 2.2 L drained on 03/04 with IR. He now also
seems to have worsening lower extremity edema and also worsening ascites. Will schedule him for a paracentesis also. He says he has been compliant with his diuretics and 2 g sodium diet and has been abstinent from alcohol for the past 2 years. He
also has hyponatremia likely related to Lasix will need to watch closely. he did see Dr. Schulz for TIPS evaluation and also OLT evaluation in January but unfortunately has not followed up since. Chest tube for hepatic hydrothorax is contraindicated so
will avoid. May need to consider pleurodesis. He also needs to be ruled out for new onset of CHF given that now he has anasarca and in which case TIPS may not be an option although echocardiogram in the past showed normal EF. Continue alcohol
abstinence. Ultrasound with Dopplers no vascular occlusion noted.
MELD 3.0 is 22, MELD NA 23 based on labs 03/05
He does have an appointment with Dr. Prince on March 22
He also made an appointment with Dr. Rust for March 25
Will need evaluation for possible TIPS versus OLT for refractory and recurrent hepatic hydrothorax or pleurodesis
2. History of grade 1 nonbleeding esophageal varices on endoscopy in 2023.
3. Continue HCC surveillance with AFP and ultrasound every 6 months he was claustrophobic so was unable to get an MRI in the past.
Subjective
Subjective
Date of Service: March 06, 2025
Scheduled for paracentesis today. His lower extremity edema is minimally improved, no nausea or vomiting, afebrile
Objective
Data Reviewed
Laboratory Data:
Laboratory Results
03/06/25 06:08
Laboratory Results
PT 20.4 Sec (11.4-14.6) H 03/06/25 06:08
INR 1.73 03/06/25 06:08
APTT 38.0 Sec (23.4-35.0) H 03/05/25 05:29
Magnesium 2.0 mg/dl (1.6-2.3) 03/05/25 05:
Total Bilirubin 3.0 mg/dl (0.2-1.3) H 03/05/25 05:29
AST 81 U/L (17-59) H 03/05/25 05:
ALT 33 U/L (0-50) 03/05/25 05:
Alkaline Phosphatase 118 U/L (38-126) 03/05/25 05:
Vital Signs and I&O:
Vital Signs
Temp Pulse Resp BP Pulse Ox
98.0 F 90 25 119/62 92
03/05/25 23:55 03/06/25 06:00 03/06/25 06:00 03/06/25 06:00 03/06/25 06:00
I&O
03/05/25 03/06/25 03/07/25
06:59 06:59 06:59
Intake Total 1200 / 1200
Balance 1200 / 1200
Physical Exam
Physical Exam
Cardiology: Normal Sinus Rhythm
Pulmonary: Other (Decreased breath sounds at the bases)
GI: Soft, Distended (With ascites, also has an umbilical hernia), Non Tender and Normal Bowel Sounds
[2025-03-06 07:17] LABS: ALT (SGPT) 34 U/L (0-50); AST (SGOT) 83 U/L (17-59); Albumin 2.8 g/dl (3.5-5.0); Alkaline Phosphatase 134 U/L (38-126); Blood Urea Nitrogen 14 mg/dl (9-20); Calcium 8.0 mg/dl (8.4-10.2); Carbon Dioxide 29 mmol/L (22-30); Chloride 102 mmol/L (98-107); Estimated Creatinine Clearance > 125 ml/min; Glucose 89 mg/dl (70-99); Magnesium 2.0 mg/dl (1.6-2.3); Potassium 4.0 mmol/L (3.5-5.1); Sodium 132 mmol/L (135-145); Total Protein 6.8 g/dl (6.3-8.2); eGFR > 60.00
[2025-03-06] MEDS: LASIX 40 MG IV (07:40)
[2025-03-06] MEDS: ALDACTONE 100 MG PO (07:41)
[2025-03-06] MEDS: VITAMIN B1 100 MG PO (07:41)
[2025-03-06] MEDS: HEPARIN 5000 UNITS SC (07:41)
--- NOTE | 2025-03-06 08:05 | PTCARENOTE ---
Patient received from accounting manager assistant controller. Patient resting comfortably in bed. AAO, VSS. No events noted overnight. No complaints of pain. Currently on 6 L N/C will attempt to wean. Scheduled for paracentesis this AM, no other tests at this time.
Call lane in reach.
--- NOTE | 2025-03-06 11:02 | W.PN.PUL3 ---
Addendum entered and electronically signed by Aram Wilks MD 03/06/25 15:04:
Discussed with Dr. Trinidad - for DC today.
Clinically improved.
Not enough fluid for paracentesis.
will sign off.
Original Note:
Today's Communication / Plan
-
Thoracentesis and paracentesis today
optimize diuresis
Wean FIO2
ECHO pending.
Eventual follow up with hepatology for TIPS/OLT eval.
Assessment
-
Assessment: 54-year-old male with a past medical history of alcoholic cirrhosis, recurrent right-sided pleural effusion despite 7 thoracenteses since 02/01/2025 who presents with SOB. Patient had recent right-sided thoracentesis 2 days ago but then
he says the fluid 'comes right back.' He has been unable to lay flat and cannot sleep due to significant shortness of breath. His abdomen is also more distended and he says his right leg is also more swollen. He takes Lasix at home but his urine
output has been decreased. In the ER he is requiring up to 6 L/min nasal cannula and chest x-ray showed bilateral pleural effusions. IR consulted and he underwent a left-sided thoracentesis, removing 2.2 L of serosanguineous fluid. Patient
admitted to the IMU and pulmonary service consulted for additional management/recommendations.
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
Impression:
#Acute respiratory failure with hypoxia
#Bilateral pleural effusions � differential includes hepatohydrothorax vs acute decompensated heart failure (despite negative proBNP)
Recurrent hepatic hydrothorax.
#Decompensated alcoholic cirrhosis with recurrent pleural effusions, ascites with history of grade 1 esophageal varices + portal hypertensive gastropathy (via EGD on 02/11/2024)
#Chronic anemia
#Chronic thrombocytopenia due to cirrhosis
#Hyponatremia due to cirrhosis possibly worsened due to reduced oral intake
#Transaminitis with hyperbilirubinemia (chronic)
Plan:
- Although patient had left-sided thoracentesis on 03/04 with 2.2 L of serosanguineous fluid removed, this is his eighth thoracentesis since February 01, 2025 - all 7 other other thoras were from right-side.
- Pleural fluid removed was transudative with total protein <2, LDH 113, and pH was 7.49 with fluid WBC 642 and monocyte predominant (84.7%)
- Follow-up pleural fluid culture + cytopathology (both pending)
- For paracentesis today.
- Given that the pleural effusions are now bilateral (left-sided pleural effusion has been increasing since February 23, 2025), with orthopnea + increasing LE edema --> check echo- pending.
- Optimize diuresis.
- Strict I/O with daily weight; sodium and fluid restricted diet
- Refractory hepatic hydrothorax portends a bad prognosis --> pt already has appointment with hepatology for TIPS evaluation and OLT --> GI following this admission as well.
- Chemical or mechanical pleurodesis is last resort if above is contraindicated and would perform in consultation with liver tx team - success rate are variable and there is high rate of complications and failures.
- IPC or chest tubes are contraindicated as they have been shown to increase mortality.
- 4l NC - wean as able.
Maintain SpO2 >90-94%, weaning down supplemental O2 flow rate as tolerated
- Abd US shows moderate amount of ascites + bilateral pleural effusions --> no mention of hepatic vein thrombosis or mass seen in liver
- MELD-Na = 23 on 03/05/2025
- GI following.
- LE duplex is negative for DVT
- Incentive spirometer encouraged q1hr while awake
- DVT ppx: HSQ
Pulmonary service will continue to follow along.
-
Total time spent today was 35 minutes for this encounter. Time includes reviewing laboratory test/imaging results, reviewing pertinent medical records, obtaining and reviewing medical history, performing an appropriate exam, ordering medications,
tests and procedures. Time also includes documentation of this encounter, coordinating patient care and communicating with other healthcare professionals. Total time does not include separately billed tests performed on this date of service.
Subjective Data
-
Date of Service:
Date of Service: March 06, 2025
Chief Complaint: Pulmonary Follow Up
Subjective:
No new complaints.
Denies cough of chest pain.
Review of Systems
General: Fever (n)
Cardiopulmonary: Dyspnea, Dyspnea on Exertion, Cough (n) and Sputum Production (n)
GI: Abdominal Pain (n) and Nausea (n)
Objective Data
Data Reviewed
Vital Signs / I&O / Oxygen:
Vital Signs
Temp Pulse Resp BP Pulse Ox
97.8 F 91 22 115/69 94
03/06/25 09:35 03/06/25 10:35 03/06/25 10:35 03/06/25 10:35 03/06/25 10:11
Intake and Output
03/05/25 03/06/25 03/07/25
06:59 06:59 06:59
Intake Total 1200 / 1200
Balance 1200 / 1200
SaO2 94
Nasal Cannula flow liters per 4
minute
Physical Exam
General: Respiratory Distress (negative), Comfortable and Chills (negative)
HEENT: Normocephalic and Moist Mucous Membranes
Cardiovascular: S1-S2, Rub (negative) and Peripheral Edema (+2 LE pitting edema bilaterally)
Respiratory: Wheeze (negative), Crackles (left middle lung field), Rhonchi (negative), Non-Labored Respirations and Other (Diminished BS at right middle lobe to right lower lobe regions)
GI: Distended (+fluid wave)
Neurology: Awake, Alert, Oriented and Tremors (negative)
Skin: Warm, Dry, Cyanosis (negative) and Jaundice (negative)
Labs/Micro/Reports
Lab Data
03/06/25 06:08
03/06/25 06:08
Laboratory Results
03/06/25
06:08
PT 20.4 H
INR 1.73
Microbiology
03/04/25 15:38 Pleural Fluid Body Fluid Culture - Preliminary
No Growth After 18-24 Hours
03/04/25 15:38 Pleural Fluid Gram Stain - Preliminary
[2025-03-06 11:56] LABS: Body Fluid Second Tech EM
--- NOTE | 2025-03-06 13:48 | W.DS.TRANS ---
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
-
Discharge Instructions:
Discharge Diagnosis/Procedures Cirrhosis
Recurrent pleural effusions
Diet 2 Gram Sodium
Instructions:
Stand-Alone Forms:
Changes to Home Medications: No
Discharge Medications:
DC Medications w/original date entered in [facility]
olmesartan 20 mg tablet 20 mg PO DAILY Blood Pressure 10/13/23
furosemide 20 mg tablet (Lasix) 60 mg PO DAILY Fluid Retention/Swelling 12/01/23
thiamine HCl (vitamin B1) 100 mg tablet 100 mg PO DAILY Supplement 12/01/23
spironolactone 25 mg tablet (Aldactone) 50 mg PO DAILY Cirrhosis 02/08/25
Home Medication Changes
Pending Results: No
--- NOTE | 2025-03-06 15:02 | CM ---
Following up on Patient. Medical Attending texed that patient will perform walking pulse ox for Home O2. This was completed and the patient was at 92% on Room Air. With ambulation, the patient was at 86%.
RICKEY Linton obtained the necessary documents, but when visited the patient to ensure this whole set up, the patient REFUSED to have any Oxygen completely. Attending was informed as well as the RN.
PLAN: Home No Needs
== END 2025-03-06 16:21 | disposition home or self-care (01) | DRG 186 ==
LOC: IMU 14:00
PROVIDERS: Radiology Vascular & Interventional Radiology; ADMITTING PHYSICIAN Hospitalist; ATTENDING PHYSICIAN Internal Medicine; CONSULT PHYSICIAN Internal Medicine Critical Care Medicine; CONSULT PHYSICIAN Internal Medicine Gastroenterology; EMERGENCY PHYSICIAN Emergency Medicine; FAMILY PHYSICIAN Family Medicine
PROC: 0W993ZZ Drainage of Right Pleural Cavity, Percutaneous Approach (ICD-10-PCS; 2025-03-06)
DX: J94.8 Other specified pleural conditions (principal); J96.01 Acute respiratory failure with hypoxia; E87.1 Hypo-osmolality and hyponatremia; K76.6 Portal hypertension; I50.9 Heart failure, unspecified; J91.8 Pleural effusion in other conditions classified elsewhere; K70.31 Alcoholic cirrhosis of liver with ascites; D63.8 Anemia in other chronic diseases classified elsewhere; E87.70 Fluid overload, unspecified; D69.59 Other secondary thrombocytopenia; F10.11 Alcohol abuse, in remission; I10 Essential (primary) hypertension; Z86.0100 Personal history of colon polyps, unspecified; E78.00 Pure hypercholesterolemia, unspecified; K31.89 Other diseases of stomach and duodenum; Z82.49 Family history of ischemic heart disease and other diseases of the circulatory system; Z79.899 Other long term (current) drug therapy
CPT/HCPCS: 32555; 71045; 71046; 76705; 80053; 82945; 83036; 83615; 83735; 83880; 83986; 84157; 84478; 84484; 85025; 85610; 85730; 87015; 87070; 87205; 88112; 88305; 89051; 93005; 93970; 99285

== ENCOUNTER → 2025-03-09 12:36 | Outpatient (REF) | payer OTHER, SELFPAY ==
[2025-03-09 12:56] VITALS: BP 144/79; BP_SYST 101
[2025-03-09 13:29] VITALS: BP 132/72
== END ==
LOC: RADI 12:36
PROVIDERS: ATTENDING PHYSICIAN Internal Medicine Critical Care Medicine
DX: J90 Pleural effusion, not elsewhere classified (principal)
CPT/HCPCS: 32555; 71045

== ENCOUNTER → 2025-03-13 07:06 | Outpatient (REF) | payer OTHER, SELFPAY ==
[2025-03-13 07:23] VITALS: BP 132/62; BP_SYST 97
[2025-03-13 07:57] VITALS: BP 122/49; BP_SYST 93
[2025-03-13 09:05] VITALS: BP 116/60
--- NOTE | 2025-03-13 09:06 | PTCARENOTE ---
[facility] note: Patient arrived to [facility] for Thoracentesis. SPO2 88-89% on RA. Right Thora completed, 2100ml fluid removed. SPO2 didn't improve after procedure, O2 2L applied, SPO2 improved to 94%. Dr. Reyes notified. patient monitored on RA for
another 30mins to see if SPO2 improves but it didn't. per Dr. Reyes, pt needs to be admitted. Patient refused to go to ER. patient stated that he has somethings that he needs to take care of and he will come later in the ER. Patient signed AMA
form and discharged home.
== END ==
LOC: RADI 07:06
PROVIDERS: ATTENDING PHYSICIAN Internal Medicine Critical Care Medicine
DX: J90 Pleural effusion, not elsewhere classified (principal)
CPT/HCPCS: 32555; 71045

== ENCOUNTER 2025-03-15 14:53 | Inpatient (IN) | payer OTHER, SELFPAY ==
[2025-03-15] VITALS (11 sets, daily range): BP systolic 113–139; BP diastolic 49–82; BMI 35.6
--- NOTE | 2025-03-15 12:19 | ED.GENMED ---
History of Present Illness
General
Chief Complaint: Breathing Problem
Source: patient and spouse
Exam Limitations: none
Time Seen by Provider: 03/15/25 11:51
History of Present Illness
History of Present Illness:
Progressive shortness of breath. Frequent thoracentesis also increased leg swelling. Decreased urination. Shortness breath has been an ongoing issue. Had a thoracentesis 2 days ago. Still short of breath after the thoracentesis
Past History
Past History
ED Past Medical History: HTN, Hypercholesterolemia and Other (liver cirrhosis)
ED Past Surgical History: Orthopedic
Social History
Tobacco: Non-smoker
Alcohol: Former
Personal: Single
Living: with family
Review of Systems
Review of Systems
All Other Systems: Not applicable
Constitutional: Denies fever
Respiratory: Reports cough
Cardiac: Denies chest pain or syncope
Phy Exam
Physical Exam
Physical Exam:
GENERAL: Alert and oriented. Mild to moderate tachypnea at rest although improves with resting.
EYE: Orbits normal.
NECK: Supple, no significant adenopathy.
ENT: Pharynx without erythema
CARDIAC: Regular rate and rhythm without any obvious murmurs.
LUNGS: Significant decreased breath sounds on the right. Soft but distended. Soft, without focal tenderness or distention
NEUROLOGICAL: Alert and oriented , grossly non-focal
SKIN: Warm and dry, no rash or lesion, no discoloration, skin intact.
MUSCULOSKELETAL: Bilateral pitting edema right greater than left
PSYCH: Normal and appropriate interaction.
Scores
Heart Failure Risk
Heart Failure Risk Score: Not Applicable
Course
Orders/Labs/Results
Orders:
Orders
03/15/25 11:41
Electrocardiogram (*1) Urgent
Reason for Study: Shortness of Breath
EKG- Treatment ONCE
03/15/25 11:51
IV Insert/Care/Rem.- Treatment PRN
CXR Port [CR Chest Portable - 1 View] Urgent
Comment:
Reason For Exam: sob
Reason Study Needs to be Portable: Patient Unstable
O2 Therapy [RESP] Stat
Titrate/Wean O2 to maintain O2 sat greater than (%): 94
Pulse Ox/cont/shift [RESP] Stat
Quantity: 1
03/15/25 11:52
Cardiac Monitoring- Treatment ONCE
03/15/25 12:08
Basic Metabolic Panel Urgent
Complete Blood Count/With Diff Urgent
[id number] Urgent
Comment: ADD ON
PTT Urgent
Prothrombin Time Urgent
03/15/25 12:18
Consult Interventional Radiology [[facility] CONSULT] Urgent
Consulting Provider: Bob Pang
Was physician already notified: Yes
Procedure being ordered, including laterality if applicable: thoracentesis
Acknowledgement that appropriate orders are entered: Yes
03/15/25 12:45
Add On- LAB Urgent
Tests Added?: lfts
03/15/25 14:15
Admit/Transfer Patient As Directed
Co-Sign Provider:
Level of Care: Inpatient admission
Assign to:: Telemetry
Physician / Group: maury
Diagnosis: hepatic hydrothorax
Reason for Telemetry: Arrhythmia
Date to Stop Telemetry: 03/18/25
Time to Stop Telemetry: 11:00
Reason for Hospitalization: hepatic hydrothorax
Expected length of stay greater than two midnights?: Yes
ELOS- Estimated Length of Stay in days: 2
I certify the patient meets the requirements for IP care: Yes
Code Status As Directed
Resuscitation Status: Full Code
PRN Pain Medication Management As Directed
May give lesser potent ordered pain med per pt: Yes
preference::
Protocol:: Medication orders for pain may be administered in a
manner that supports deferring to patient preference
when the pt is:
- Requesting an ordered lesser potent pain medication.
Least to most potent pain medications are defined
as: acetaminophen < NSAID < tramadol < opioids
(morphine, oxycodone, hydromorphone).
- Requesting a lesser dose of the same medication IF
ORDERED.
- Requesting a less intrusive route of administration
if both routes are prescribed by the provider (PO <
IV).
03/15/25 14:49
CR Chest Single View Urgent
Comment:
Reason For Exam: post right thoracentesis
03/15/25 Dinner
Regular
At Your Request: Full Participation
Does patient need a safe tray?: No
03/15/25 19:58
PULMONARY CONSULT Routine
Consulting Provider: Sue Obando
Was physician already notified: Yes
Activity As Directed
Activity Level: As Tolerated
Vital Signs As Directed
Frequency: Per unit guidelines
DX Deep Vein Thrombosis Video Routine
03/15/25 20:00
Heparin 5,000 units SC Q12
03/16/25 06:50
Complete Blood Count/With Diff IN AM
Comprehensive Metabolic Panel IN AM
03/16/25 08:00
Furosemide [Lasix] 60 mg PO DAILY
Olmesartan Medoxomil [Benicar] 20 mg PO DAILY
Spironolactone [Aldactone] 50 mg PO DAILY
Thiamine HCl [Vitamin B1] 100 mg PO DAILY
03/18/25 11:00
DC Protocol for Telemetry ONCE
Abnormal Lab Results
03/15/25
12:08
RBC 4.56 L 10^6/uL
(4.70-6.10)
Hgb 11.6 L g/dL
(13.0-18.0)
Hct 35.3 L %
(39.0-52.0)
MCV 77.4 L fL
(80.0-94.0)
MCH 25.4 L pg
(27.0-31.0)
MCHC 32.9 L g/dL
(33.0-37.0)
RDW 20.5 H %
(11.5-14.5)
Absolute Lymphs (auto) 0.8 L 10^3/uL
(1.2-3.4)
Absolute Monos (auto) 1.3 H 10^3/uL
(0.1-0.6)
Lymphocytes % 11.0 L %
(20.5-51.1)
Monocytes % 18.7 H %
(1.7-9.3)
PT 20.4 H Sec
(11.4-14.6)
APTT 38.1 H Sec
(23.4-35.0)
Sodium 129 L mmol/L
(135-145)
Glucose 120 H mg/dl
(70-99)
Calcium 7.8 L mg/dl
(8.4-10.2)
Total Bilirubin 3.4 H mg/dl
(0.2-1.3)
Direct Bilirubin 1.6 H mg/dl
(0.0-0.4)
AST 113 H U/L
(17-59)
ALT 52 H U/L
(0-50)
Alkaline Phosphatase 158 H U/L
(38-126)
Albumin 2.8 L g/dl
(3.5-5.0)
03/15/25 12:08
03/15/25 12:08
Vital Signs
Initial and Last Documented VS:
Initial Vital Signs
Temp Pulse Resp BP Pulse Ox
98.2 F 104 26 136/69 89
03/15/25 11:47 03/15/25 11:47 03/15/25 11:47 03/15/25 11:47 03/15/25 11:47
Last Documented Vital Signs
Temp Pulse Resp BP Pulse Ox
97.8 F 83 18 95/43 91
03/17/25 15:44 03/17/25 16:56 03/17/25 15:44 03/17/25 16:56 03/17/25 15:44
MDM/Problems Addressed
Differential Diagnosis Includes:
At rest patient is oxygenating. Mildly tachypneic but stable. Decreased breath sounds right side. Large effusion. Interventional radiology contacted. Clearly warrants readmission.
*Radiology
Radiology exam reviewed: preliminary read by ED provider (Large effusion right lung)
*Pulse Oximetry
SaO2: 89
Oxygen Mode of Delivery: Room air
Patient hypoxic: yes
*EKG
Interpreted by ED Provider?: Yes
Interpretation: abnormal
Comparison EKG: changes noted
Heart Rate: 102
Rate: tachycardiac
Rhythm: sinus
[place]: normal axis
Interval: normal interval
QRS Pattern: normal QRS
Ischemia: no ischemia
*Mineral Technologist Interpretation
Rate: normal
Interpretation: normal
Heart Rate: 98
Rhythm: sinus
*Critical Care Note
Total Time (30-74mins, 75-104mins- exclusive of procedures): Not Applicable
Data Reviewed
Review of Other/Old Records Reveals: Labs, Records, Radiology Studies, Testing and Discharge Summary
ED Attending Note
-
Portions of this chart may have been created with voice recognition software.� Occasional wrong word or��sound alike� substitutions may have occurred due to the inherent limitations of voice recognition software.
Discharge Plan
Departure
Patient Disposition: Admit
Date of Disposition: 03/15/25
Time of Disposition: 12:34
Presentation/result/management discussed w/ accepting MD/DO: IR
Discharge Problem:
Respiratory distress, Recurrent right pleural effusion, History of alcoholic cirrhosis
Interventions
Interventions:
*Risk Screen - Suicide Last Done: 03/15/25 11:47
*General Assessment Last Done: 03/15/25 11:47
*Neglect/Abuse Screening Last Done: 03/15/25 11:47
*ED- Fall Risk Assessment Last Done: 03/15/25 12:00
*ED COVID-19 Vaccine History Last Done: 03/15/25 19:40
*Nursing Disposition Last Done: 03/15/25 20:02
ED- Cardiac Assessment Last Done: 03/15/25 12:00
ED- Pulmonary Assessment Last Done: 03/15/25 12:00
Discharge Date and Time
Discharge Date/Time: 03/15/25 20:03
[2025-03-15 12:30] LABS: Hematocrit 35.3 % (39.0-52.0); Hemoglobin 11.6 g/dL (13.0-18.0); Mean Corp Hgb Conc. 32.9 g/dL (33.0-37.0); Mean Corpuscular Volume 77.4 fL (80.0-94.0); Nucleated Red Blood Cells % 0 % (-); Platelet Count 165 10^3/uL (130-400); Red Cell Dist. Width 20.5 % (11.5-14.5)
[2025-03-15 12:48] LABS: INR 1.69; PT 20.4 Sec (11.4-14.6)
[2025-03-15 12:49] LABS: APTT 38.1 Sec (23.4-35.0)
[2025-03-15 12:53] LABS: Blood Urea Nitrogen 17 mg/dl (9-20); Calcium 7.8 mg/dl (8.4-10.2); Carbon Dioxide 27 mmol/L (22-30); Chloride 99 mmol/L (98-107); Glucose 120 mg/dl (70-99); Potassium 4.0 mmol/L (3.5-5.1); Sodium 129 mmol/L (135-145); eGFR > 60.00
[2025-03-15 13:59] LABS: ALT (SGPT) 52 U/L (0-50); AST (SGOT) 113 U/L (17-59); Albumin 2.8 g/dl (3.5-5.0); Alkaline Phosphatase 158 U/L (38-126); Total Protein 7.2 g/dl (6.3-8.2)
--- NOTE | 2025-03-15 14:17 | HPS.HSE ---
Addendum entered and electronically signed by Dusty Pena MD 03/15/25 14:35:
Discussed with GI and they recommend follow up with Dr. Schulz hepatology.
Original Note:
Family Physician
-
Family Physician: * NONE
Chief Complaint
-
shortness of breath
History of Present Illness
54-year-old male past medical history of bilateral pleural effusions, hepatic hydrothorax requiring recurrent drainage, advanced alcoholic cirrhosis, portal hypertension, chronic anemia/thrombocytopenia, hypervolemic hyponatremia, former alcohol use
disorder, hypertension, presenting with presenting with shortness of breath with exertion with dry cough and chest pain as well as increased leg swelling particularly in the right leg. �He has decreased urination and not responding to diuretics as
well as he used to. �Last had thoracentesis 2 days ago with removal of 2 L of IV fluids. Denies any rectal bleeding, denies vomiting or abdominal pain. Does have some abdominal distention. No fevers or chills.
Has had recurrent admissions for reaccumulation of hydrothorax.
Medical History
Past Medical History
Past Medical History: Reports Other (bilateral pleural effusions, hepatic hydrothorax requiring recurrent drainage, advanced alcoholic cirrhosis, portal hypertension, chronic anemia/thrombocytopenia, hypervolemic hyponatremia, former alcohol use
disorder, hypertension)
Past Surgical History: Reports None
Social History
Tobacco: Non-smoker
Alcohol: Former
Drug: None
Family History
Family History: Not pertinent
Allergies / Home Medications
Allergies reflects when Allergies were last updated in [employer].
Home Medications with original date entered in [employer]
Allergy/Medication List:
Allergies
Allergy/AdvReac Type Severity Reaction Status Date / Time
No Known Allergies Allergy Verified 03/15/25 11:47
Home Medications
olmesartan 20 mg tablet 20 mg PO DAILY Blood Pressure 10/13/23
furosemide 20 mg tablet (Lasix) 60 mg PO DAILY Fluid Retention/Swelling 12/01/23
thiamine HCl (vitamin B1) 100 mg tablet 100 mg PO DAILY Supplement 12/01/23
spironolactone 25 mg tablet (Aldactone) 50 mg PO DAILY Cirrhosis 02/08/25
Review of Systems
-
History Source: Patient
A 12 point ROS was completed and negative except as noted: Yes
Constitutional: Reports No Symptoms
EENT: Reports No Symptoms
Respiratory: Reports See HPI
Cardiac: Reports No Symptoms
Abdomen/GI: Reports No Symptoms
: Reports No Symptoms
Musculoskeletal: Reports No Symptoms
Skin: Reports No Symptoms
Neurological: Reports No Symptoms
Endocrine: Reports No Symptoms
Hematologic/Lymphatic: Reports No Symptoms
Psych: Reports No Symptoms
Physical Exam
Vital Signs
Vital Signs
Temp Pulse Resp BP Pulse Ox
98.2 F 97 30 122/73 92
03/15/25 11:47 03/15/25 13:00 03/15/25 13:00 03/15/25 13:00 03/15/25 13:00
Physical Exam
General: Well Developed, Well Nourished and No Apparent Distress
HEENT: NormoCephalic, Moist mucous membranes and Atraumatic
Respiratory: Clear
Cardiac: S1/S2, Regular Rhythm and Peripheral Edema (R>L ); No Murmur or Rub
GI: Soft, Non Tender, Non Distended and Normal Bowel Sounds; No Organomegaly
Rectal: Deferred by Provider
Musculoskeletal: No Clubbing, No Cyanosis and No Edema
Skin: No Rash
Neuro: Nonfocal/grossly intact
Laboratory Results
-
03/15/25 12:08
03/15/25 12:08
Laboratory Results
PT 20.4 Sec (11.4-14.6) H 03/15/25 12:08
INR 1.69 03/15/25 12:08
APTT 38.1 Sec (23.4-35.0) H 03/15/25 12:08
Total Bilirubin 3.4 mg/dl (0.2-1.3) H 03/15/25 12:08
AST 113 U/L (17-59) H 03/15/25 12:08
ALT 52 U/L (0-50) H 03/15/25 12:08
Alkaline Phosphatase 158 U/L (38-126) H 03/15/25 12:08
Data Reviewed
-
Lab Data: Labs Reviewed by me
Old Records: Reviewed
Impression/Plan
-
IMPRESSION:
PLAN:
# Recurrent right-sided hepatic hydrothorax
-Status post thoracentesis 2 days ago
- Chest x-ray shows massive right pleural effusion
- IR consulted for thoracentesis
-Continue Lasix, spironolactone
- Pulmonary consulted to see if indwelling catheter necessary or other procedures such as pleurodesis
- GI consulted to see if candidate for TIPS
- Likely able to increase spironolactone to 100 mg
# Right lower extremity swelling
- Had peripheral venous ultrasound on 02/25 which was unremarkable
- Consider rechecking
History advanced alcoholic cirrhosis
Portal hypertension
Chronic anemia/thrombocytopenia secondary to cirrhosis
- Stable counts
History of hypervolemic hyponatremia
Former alcohol use disorder
- No longer drinks alcohol
Essential hypertension
- Continue olmesartan
Full code
DVT prophylaxis�heparin
Regular diet
--- NOTE | 2025-03-15 20:00 | PTCARENOTE ---
Pt received from ED via stretcher accompanied by ED staff and . AAOx3, ambulated to bed. VSS w/complaints of cramping pain but denies Tylenol. Placed on tele. RN unable to complete full skin assessment, pt refused to have RN look at his sacrum
'there's no issues'. RN educated the importance and purpose of assessing skin. Pt still refused. Pt oriented to room with call lane within reach.
[2025-03-15] MEDS: HEPARIN 5000 UNITS SC (20:30)
--- NOTE | 2025-03-15 20:43 | PTCARENOTE ---
Rn transcription coordinator- Admission assessment completed remotely via phone. Called to Lisseth deputy court clerk and informed her that patient was a fall risk.
[2025-03-15] MEDS: MELATONIN 5 MG PO (21:51)
--- NOTE | 2025-03-15 23:09 | PTCARENOTE ---
Pt sating at 91% on room air with no complaints of shortness of breath. RN attempted to put on O2, pt refused stating 'I don't feel it is necessary. I have fluid around my lung, it is going to be low. I have been at 95% all day.' RN educated on the
purpose of O2 therapy and the importance of maintaining an O2 sat above 94%. Pt still refusing oxygen therapy.
[2025-03-16] VITALS (9 sets, daily range): BP systolic 98–141; BP diastolic 52–77; BMI 35.4
--- NOTE | 2025-03-16 07:31 | W.PN.HOSP.TC ---
Addendum entered and electronically signed by Arpit Lau MD 03/17/25 16:09:
I personally reviewed and evaluated this patient with the resident. I agree with above unless if otherwise stated below.
I personally reviewed labs and imaging analytical consultant notes case management note
Addendum entered and electronically signed by Arpit Lau MD 03/16/25 12:18:
Recurrent hepatic hydrothorax
S/p thoracentesis
Again short of breath after couple hours
Has not been able to make it to his outpatient TIPS eval appointment.
Scheduled for March [address] Rust in [place]
I spoke with interventional radiologist Dr. Felton who states that he will allow Mr. Ariza to be 3 times a week for thoracenteses as he is quickly reaccumulating
Recommend 3 times a week in order to bridge him over to TIPS/transplant
I am concerned that if we are not able to get him these advanced procedures at a tertiary liver center then he may become a hospice patient eventually
Right lower extremity swelling likely sec related to ascites and cirrhosis
For completeness we will check DVT study. Last DVT study was negative as of end of February
Portal hypertension
Continue Aldactone and Lasix
Hypertension
Continue losartan
Dr. Botello did call Dr. Schulz which is his outpatient flagman was not able to get in touch with him and left a voicemail and attempts to see if he would be agreeable to transfer to [place] for TIPS evaluation due to have
recurrent/reaccumulating Thora's are
Read, reviewed, and agree. See same day progress note for additional details. Time spent reviewing records in EMR, med rec, consults, notes, d/w consultants, nursing, family, and CM
Original Note:
Today's Communication/Plan
-
Plan reviewed with attending
Echo
LE US
Coordination with flagman
Assessment / Plan
Assessment / Plan
54yoM PMH cirrhosis, former AUD, HTN, recurrent hepatic hydrothorax presenting with recurrent hepatic hydrothorax, SOB and RLE swelling.
Pt has been admitted multiple times with recurring issue and gets repeated outpt thoracenteses. He is frustrated at the current issue. He is interested in TIPS procedure. He has discussed with GI both TIPS and liver transplant but has not been able
to follow up since 04/2024. He has an appointment next week scheduled.
Plan for echo, RLE US. Keep home doses of diuretics with one bout of mild hypotension. In contact with outpt providers to try to coordinate care with flagman.
Heterozygous hemochromatosis HFE gene, fatty liver, alcohol use
# Recurrent right-sided hepatic hydrothorax
- Status post thoracentesis 2 days ago
- Chest x-ray shows massive right pleural effusion
- Thoracentesis in ED yesterday
- Continue Lasix, spironolactone
- Pulmonary consulted to see there are options beyond serial thoracenteses
# Right lower extremity swelling
- Had peripheral venous ultrasound on 02/25 which was unremarkable
- Recheck today with worsening
- Echo to evaluate peripheral edema, still 1+ edema on L side, though less severe than R
History advanced alcoholic cirrhosis
Portal hypertension
Chronic anemia/thrombocytopenia secondary to cirrhosis
- Stable counts
History of hypervolemic hyponatremia
Former alcohol use disorder
- No longer drinks alcohol
Essential hypertension
- Continue olmesartan
Full code
DVT prophylaxis�heparin
Regular diet
Anticipated Discharge: Within 24 hours
Subjective/Interval History
-
Date of Service: March 16, 2025
Mr. Ariza reports being SOB this morning even with speech. He is frustrated with the repeated need for thoracenteses with the understanding this is not solving the problem, just transient fix. He denies abdominal pain just the feeling of being
distended and bloated. He reports the swelling of his R leg has worsened but not significantly. Denies blood in BM, nausea, vomiting. He reports having to urinate many times when he was initially prescribed lasix and aldactone but it has reduced.
Pt describes medical journey of initally having fluid in his lungs 10/2023 when they placed a chest tube for a few days. The fluid did not reaccumulate until 12/2024. Since December, he had repeated thoracenteses, now up to 2/wk outpt. His last thora was
Thursday but this time he reports it refilling even quicker.
Pt denies hx of hepatic encephalopathy. He has never chronically been on lactulose. No hx confusion, asterixis. He reports having 1 BM/day. Pt reports having an echo a long time ago but none recently.
Objective Data
-
Labs:
Laboratory Results
03/16/25
06:50
WBC Pending
Hgb Pending
Hct Pending
Plt Count Pending
Sodium Pending
Potassium Pending
Chloride Pending
Carbon Dioxide Pending
BUN Pending
Creatinine Pending
Glucose Pending
Calcium Pending
Total Bilirubin Pending
AST Pending
ALT Pending
Alkaline Phosphatase Pending
Vital Signs:
Vital Signs
Temp Pulse Resp BP Pulse Ox
97.8 F 83 18 129/66 92
03/16/25 03:40 03/16/25 03:40 03/16/25 03:40 03/16/25 03:40 03/16/25 03:40
Review of Systems
-
History Source: Patient
All other systems: Reviewed and negative
Abdomen/GI: Reports Bloated; Denies Abdominal Pain, Vomiting or Bloody Stools
Genitourinary: Reports No Symptoms
Skin: Reports Rash (constant petechial rash)
Neuro: Denies Headache, Ataxia or Tremors
Physical Exam
-
General: Well Developed, Well Nourished, No Apparent Distress, Comfortable, Respiratory Distress (SOB when speaking ), Conversant and Appears Chronically Ill
HEENT: Normocephalic, Atraumatic, Moist Mucous Membranes, Nose Appears Normal, Ears Appear Normal and Other (mild scleral icterus)
Respiratory: Other (labored breathing, no accessory muscle use, no breath sounds on RL)
Cardiac: Regular Rhythm and S1/S2
GI: Soft, Nontender and Distended
Musculoskeletal: Edema, Right Lower Extrem (2+ pitting edema up to knee) and Edema, Left Lower Extrem (1+ pitting edema at ankle)
Skin: Warm, Dry and Other (petechial rash over entire body); Negative Jaundice
Neuro: AO x 3, No Motor Deficits and Nonfocal/Grossly Intact; Negative Tremors
[2025-03-16] MEDS: VITAMIN B1 100 MG PO (07:42)
[2025-03-16] MEDS: HEPARIN 5000 UNITS SC (07:43)
[2025-03-16] MEDS: ALDACTONE 50 MG PO (07:44)
[2025-03-16] MEDS: BENICAR 20 MG PO (07:44)
[2025-03-16 08:15] LABS: Hematocrit 33.4 % (39.0-52.0); Hemoglobin 10.7 g/dL (13.0-18.0); Mean Corp Hgb Conc. 32.0 g/dL (33.0-37.0); Mean Corpuscular Volume 77.0 fL (80.0-94.0); Nucleated Red Blood Cells % 0 % (-); Platelet Count 127 10^3/uL (130-400); Red Cell Dist. Width 20.4 % (11.5-14.5)
[2025-03-16 08:51] LABS: ALT (SGPT) 47 U/L (0-50); AST (SGOT) 85 U/L (17-59); Albumin 2.5 g/dl (3.5-5.0); Alkaline Phosphatase 145 U/L (38-126); Blood Urea Nitrogen 13 mg/dl (9-20); Calcium 7.6 mg/dl (8.4-10.2); Carbon Dioxide 27 mmol/L (22-30); Chloride 99 mmol/L (98-107); Estimated Creatinine Clearance > 125 ml/min; Glucose 91 mg/dl (70-99); Potassium 4.1 mmol/L (3.5-5.1); Sodium 128 mmol/L (135-145); Total Protein 6.6 g/dl (6.3-8.2); eGFR > 60.00
--- NOTE | 2025-03-16 09:49 | CON.PUL ---
Consultation
Consultation Request
Date/Time Consultation Requested: 03/15/25
Date/Time Consultation Performed: 03/16/25
Performing Provider: Topher
Reason for Consultation: Recurrent effusion
Medical History
-
History of Present Illness:
54-year-old male past medical history of bilateral pleural effusions, recurrent hydrothorax, advanced alcoholic cirrhosis, portal hypertension, chronic anemia/thrombocytopenia, hypervolemic hyponatremia, former alcohol use disorder, hypertension,
presenting with presenting with shortness of breath with exertion with dry cough and chest pain as well as increased leg swelling particularly in the right leg. �He has decreased urination and not responding to diuretics as well as he used to. �Last
had thoracentesis 2 days ago with removal of 2 L of IV fluids. He has needed repeated thoras every 2-3 days without ability to hold off on inpatient admission.
Past Medical History
Past Medical History: Other (see list below)
Social History
Tobacco: Non-smoker
Alcohol: None
Drug: None
Family History
Family History: Reviewed & Not Pertinent
Allergies / Home Medications
Allergies
Allergy/AdvReac Type Severity Reaction Status Date / Time
No Known Allergies Allergy Verified 03/15/25 11:47
Home Medications
�Medication �Instructions �Recorded �Confirmed �Last Taken �Type
olmesartan 20 mg tablet 20 mg PO DAILY Blood Pressure 10/13/23 03/15/25 03/14/25 History
furosemide 20 mg tablet (Lasix) 60 mg PO DAILY Fluid 12/01/23 03/15/25 03/14/25 History
Retention/Swelling
thiamine HCl (vitamin B1) 100 mg 100 mg PO DAILY Supplement 12/01/23 03/15/25 03/14/25 History
tablet
spironolactone 25 mg tablet 50 mg PO DAILY Cirrhosis 02/08/25 03/15/25 03/14/25 History
(Aldactone)
Review of Systems
-
History Source: Patient
All other systems: Negative unless noted
Vitals / Labs / Diagnostic Testing
Vital Signs
Temp Pulse Resp BP Pulse Ox
97.7 F 89 20 141/77 93
03/16/25 07:46 03/16/25 07:46 03/16/25 07:46 03/16/25 07:46 03/16/25 07:46
Lab Data
03/16/25 06:50
03/16/25 06:50
Laboratory Results
03/15/25
12:08
PT 20.4 H
INR 1.69
APTT 38.1 H
Diagnostic Testing:
Physical Exam
-
HEENT: Normocephalic, Anicteric and Moist Mucous Membranes
Cardiovascular: S1/S2 and Regular Rhythm
Respiratory: Clear (decreased BS BL) and Non-Labored Respirations
GI: Soft, Distended and Non Tender
Neurology: Awake, Alert, Oriented and No Motor Deficits
Skin: Warm, Dry and Good Color
General: Comfortable and Other (NAD)
Assessment
-
54-year-old male past medical history of bilateral pleural effusions, recurrent hydrothorax, advanced alcoholic cirrhosis, portal hypertension, chronic anemia/thrombocytopenia, hypervolemic hyponatremia, former alcohol use disorder, hypertension,
presenting with presenting with shortness of breath with exertion with dry cough and chest pain as well as increased leg swelling particularly in the right leg. �He has decreased urination and not responding to diuretics as well as he used to. �Last
had thoracentesis 2 days ago with removal of 2 L of IV fluids. He has needed repeated thoras every 2-3 days without ability to hold off on inpatient admission. We are consulted for evaluation 03/16/25.
Acute on chronic right-sided pleural effusion due to hepatohydrothorax/EtOH-cirrhosis
Decompensated hepatic cirrhosis with ascites and right-sided hepatohydrothorax
SOB
Pancytopenia
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
Chronic R sided pleural effusion/hepatohydrothorax s/p chest tube 10/13/2023
Alcoholic cirrhosis, MELD 22
Hypertension
Distended gallbladder with mobile sludge without pericholecystic edema or Hickey sign
Hx of alcohol abuse - abstinent from EtOH for several months now
Thrombocytopenia � due to history of cirrhosis
Chronic anemia
Transaminitis with hyperbilirubinemia
Anal condyloma
Plan:
Currently on RA
No history of lung disease in distant past, never smoker
Had previous history of hepatic hydrothorax and hospitalization with chest tube placement in 2023.
He notes he had not followed with pulmonary following that discharge and has not yet followed with Transplant team.
Had called [place] transplant but did not get call back for visit.
He has appt on 03/22 but he had had recurrent admissions since then
CXR showing recurrent pleural effusion. Denies abdominal swelling.
Has been obtaining outpatient repeated taps as needed but this has not been working to avoid readmissions
This was as recent as 03/15 with 2L removed, he still did not feel relief -- within hours, felt SOB again
He admits that this is leading to poor QoL
We discussed transfer to [place] for TIPS eval with primary service
Patient has been accepted
I had prolonged discussion with outpatient in terms of options and we discussed again wtih and team resident present
He understands his option to transfer to [facility] for eval, he has the option to consider transplant as it stands
He knows with 100% certainty that he would not want transplant at all, he is now not sure if he would proceed with TIPS but would like to keep his 03/22 visit for that determination
He wants to have an ASEPT in place understanding that this would eliminate his chance for transplant
This discussion was witnessed by team
He has declined transfer
We will consult IR for ASEPT placement
We will follow
Data:
CXR 01/31/25-Moderate to large right pleural effusion, significantly increasing since most recent radiograph. Small left pleural effusion, new since previous radiograph.
CXR 10-16-2023: New findings suggesting mild right lower lobe pneumonia versus atelectasis. Considering the acute development, atelectasis is more likely. This film was taken during a limited inspiration. No visualized pneumothorax.
CXR 10-15-2023: Placement of right chest tube with significantly decreased right pleural fluid. No findings to confirm pneumothorax.
CXR 10-13-2023: Interval development of complete opacification right hemithorax with mass effect and shift of the mediastinum toward the left. Findings most likely represent a large right pleural effusion. Underlying mass and/or pneumonia is not
excluded radiographically.
CTA Chest 10-13-2023: Examination is nondiagnostic for pulmonary embolism. Very large right pleural effusion with mass effect and midline shift. Collapse of the right lung. No significant left pleural effusion. Small to moderate amount of ascites in
the visualized upper abdomen. Nodular external contour of the visualized liver, suggestive of cirrhosis. Splenomegaly is present, as seen on previous ultrasound of the abdomen. If there are persistent clinical symptoms highly suggestive of pulmonary
embolism after right-sided thoracentesis, a repeat CT examination with pulmonary embolism protocol could be performed.
ECHO 10/14/23- Technically difficult study - Lumason contrast used. Normal biventricular size and systolic function without regional wall motion abnormality. Estimated LVEF 60-65%. Mild concentric left ventricular hypertrophy. Aortic sclerosis
without stenosis. No prior study available for comparison.
Total time spent today was 81 minutes for this encounter. Time includes reviewing laboratory test/imaging results, reviewing pertinent medical records, obtaining and reviewing medical history, performing an appropriate exam, ordering medications,
tests and procedures. Time also includes documentation of this encounter, coordinating patient care and communicating with other healthcare professionals. Total time does not include separately billed tests performed on this date of service.
[2025-03-16] MEDS: LASIX PO (10:35)
[2025-03-16] MEDS: ALBUMIN 5% 250 IV (11:11)
--- NOTE | 2025-03-16 16:19 | CM ---
Reviewed chart. Met with pt. Lives with girlfriend in 2 story home with 2 steps at the entrance and BR on 1st floor. Independent in ADLs and IADLs. NO hx of DM, O2 at home, HH or SNF. Confirmed that he does not currently have a PCP and 'is working
on it', Confirmed Rx insurance is [place]; [employer] (which is scanned in the computer, is old. No insecurities identified.
Pt was SOB during IA and is slightly agitated. Workup in- process
Plan: Home with no needs
[2025-03-16] MEDS: HEPARIN SC (19:43)
[2025-03-16] MEDS: MELATONIN PO (21:45)
[2025-03-17] VITALS (8 sets, daily range): BP systolic 81–116; BP diastolic 37–62; BMI 35.6
--- NOTE | 2025-03-17 07:23 | W.PN.HOSP.TC ---
Addendum entered and electronically signed by Arpit Lau MD 03/17/25 16:11:
Recurrent hepatic hydrothorax
S/p thoracentesis
Again short of breath after couple hours
Has not been able to make it to his outpatient TIPS eval appointment.
Scheduled for March [address] Rust in [place]
I spoke with interventional radiologist Dr. Felton who states that he will allow Mr. Ariza to be 3 times a week for thoracenteses as he is quickly reaccumulating
Recommend 3 times a week in order to bridge him over to TIPS/transplant
He ended up declining transfer to [facility] for hepatology eval
Wants to have a PleurX catheter in place, understands that this may exclude him from tap/liver transplant eval or from procuring a liver transplant in the future.
Understands that this could shorten his life expectancy
Per case management and IR requires to have PleurX catheter devices at home, case management working on this with visiting nurses
Obtain thoracentesis today
Right lower extremity swelling likely sec related to ascites and cirrhosis
For completeness we will check DVT study. Last DVT study was negative as of end february
Portal hypertension
Continue Aldactone and Lasix
Hypertension
Continue losartan
I personally reviewed and evaluated this patient with the resident. I agree with above unless if otherwise stated below.
I personally reviewed labs and imaging apprenticeship consultant notes case management note
Original Note:
Today's Communication/Plan
-
Plan reviewed with attending
Thoracentesis today while CM, pulm, IR work on setting up details of asept material for home
Assessment / Plan
Assessment / Plan
54yoM PMH cirrhosis, former AUD, HTN, recurrent hepatic hydrothorax presenting with recurrent hepatic hydrothorax, SOB and RLE swelling.
Pt has been admitted multiple times with recurring issue and gets repeated outpt thoracenteses. He is frustrated at the current issue. He is interested in TIPS procedure. He has discussed with GI both TIPS and liver transplant but has not been able
to follow up since 04/2024. He has an appointment next week scheduled.
We set up a transfer for this pt to [facility] [place] for TIPS/transplant evaluation since he was established with Dr. Shankar Schulz a year ago. a year ago pt was eligible for both TIPS and transplant but was lost to follow up. At this given time, pt's MELD is
too elevated for TIPS. [facility] manager lighting Dr. Schulz is willing to transfer pt for transplant evaluation given the repeated thoracenteses now multiple times a week. By yesterday afternoon, pt declined transfer and decided to pursue palliative
approach of asept catheter to alleviate some of the SOB discomfort from the heptic hydrothorax. Multiple providers including myself, Dr. Obando, Dr. Lau, Dr. King thoroughly discussed the risks and prognosis with deciding to forgo transfer
for this approach instead. Pt demonstrated understanding with desire to proceed with asept.
Hx Heterozygous hemochromatosis HFE gene, fatty liver, alcohol use. Pt denies recent alcohol use.
# Recurrent right-sided hepatic hydrothorax
- Status post thoracentesis Thursday. plan for thoracentesis today until asept catheter details can be planned accordingly
- Chest x-ray shows massive right pleural effusion
- Thoracentesis in ED thursday
- Continue Lasix, spironolactone
- Pulmonary consulted. Offered asept. Working with CM, IR and pulm to facilitate
- repeated thoracenteses in recent time- i dose of albumin yesterday
# Right lower extremity swelling
- Had peripheral venous ultrasound on 02/25 which was unremarkable
- Recheck today with worsening- negative for DVT
- Echo to evaluate peripheral edema, still 1+ edema on L side, though less severe than R. No abnormalities
History advanced alcoholic cirrhosis
Portal hypertension
Chronic anemia/thrombocytopenia secondary to cirrhosis
- Stable counts
History of and current hypervolemic hyponatremia
- diuresis as tolerated
Former alcohol use disorder
- No longer drinks alcohol
Essential hypertension
- Continue olmesartan
Full code
DVT prophylaxis�heparin
Regular diet
Anticipated Discharge: Within 24 hours
Subjective/Interval History
-
Date of Service: March 17, 2025
Pt reports no worsening SOB from baseline. He denies abdominal distention worse than yesterday or leg swelling.
Confirmed today that pt does not want to pursue transplant or care at [facility].
Objective Data
-
Labs:
Laboratory Results
03/17/25
07:10
WBC Pending
Hgb Pending
Hct Pending
Plt Count Pending
PT Pending
INR Pending
Sodium Pending
Potassium Pending
Chloride Pending
Carbon Dioxide Pending
BUN Pending
Creatinine Pending
Glucose Pending
Calcium Pending
Total Bilirubin Pending
AST Pending
ALT Pending
Alkaline Phosphatase Pending
Vital Signs:
Vital Signs
Temp Pulse Resp BP Pulse Ox
97.5 F 80 22 109/56 93
03/17/25 03:01 03/17/25 03:01 03/17/25 03:01 03/17/25 03:01 03/17/25 03:01
I&O
03/16/25 03/17/25 03/18/25
06:59 06:59 06:59
Intake Total 1260 / 1260
Balance 1260 / 1260
Review of Systems
-
History Source: Patient
Physical Exam
-
General: Well Developed, Well Nourished, No Apparent Distress and Comfortable
HEENT: Normocephalic, Atraumatic, Moist Mucous Membranes, Nose Appears Normal and Ears Appear Normal
Respiratory: Non Labored Respirations and Decreased Breath Sounds (L side clear to auscultation, no breath sounds on R side)
Cardiac: Regular Rhythm and S1/S2
GI: Nontender and Distended
Musculoskeletal: Edema, Right Lower Extrem (severe, 2+) and Edema, Left Lower Extrem (1+)
Skin: Warm, Dry and Rash (petechiae)
Neuro: AO x 3, Nonfocal/Grossly Intact and No Sensory Deficits
Psych: Calm
[2025-03-17 08:27] LABS: INR 1.63; PT 19.5 Sec (11.4-14.6)
[2025-03-17 08:30] LABS: Hematocrit 36.4 % (39.0-52.0); Hemoglobin 11.5 g/dL (13.0-18.0); Mean Corp Hgb Conc. 31.6 g/dL (33.0-37.0); Mean Corpuscular Volume 78.3 fL (80.0-94.0); Platelet Count 169 10^3/uL (130-400); Red Cell Dist. Width 20.7 % (11.5-14.5)
[2025-03-17 08:50] LABS: ALT (SGPT) 49 U/L (0-50); AST (SGOT) 89 U/L (17-59); Albumin 2.9 g/dl (3.5-5.0); Alkaline Phosphatase 158 U/L (38-126); Blood Urea Nitrogen 21 mg/dl (9-20); Calcium 8.1 mg/dl (8.4-10.2); Carbon Dioxide 29 mmol/L (22-30); Chloride 99 mmol/L (98-107); Estimated Creatinine Clearance > 125 ml/min; Glucose 90 mg/dl (70-99); Potassium 4.1 mmol/L (3.5-5.1); Sodium 132 mmol/L (135-145); Total Protein 7.4 g/dl (6.3-8.2); eGFR > 60.00
[2025-03-17] MEDS: HEPARIN SC (08:53)
[2025-03-17] MEDS: VITAMIN B1 100 MG PO (08:55)
[2025-03-17] MEDS: BENICAR 20 MG PO (08:55)
[2025-03-17] MEDS: ALDACTONE 50 MG PO (08:56)
[2025-03-17] MEDS: LASIX 60 MG PO (08:56)
--- NOTE | 2025-03-17 09:07 | W.PN.PUL3 ---
Today's Communication / Plan
-
ASEPT placement, IR consulted--can drain 1L daily until fluid diminishes, then go 2 days, then 3 days etc
He has appt with [facility] for TIPS eval 03/22 that he wishes to keep
Discharge planning after ASEPT placement and home care set up, he is anxious to leave to make his appt
OP FU in our office in 1-2 weeks
Assessment
-
54-year-old male past medical history of bilateral pleural effusions, recurrent hydrothorax, advanced alcoholic cirrhosis, portal hypertension, chronic anemia/thrombocytopenia, hypervolemic hyponatremia, former alcohol use disorder, hypertension,
presenting with presenting with shortness of breath with exertion with dry cough and chest pain as well as increased leg swelling particularly in the right leg. �He has decreased urination and not responding to diuretics as well as he used to. �Last
had thoracentesis 2 days ago with removal of 2 L of IV fluids. He has needed repeated thoras every 2-3 days without ability to hold off on inpatient admission. We are consulted for evaluation 03/16/25.
Acute on chronic right-sided pleural effusion due to hepatohydrothorax/EtOH-cirrhosis
Decompensated hepatic cirrhosis with ascites and right-sided hepatohydrothorax--declined transfer to [facility]
SOB
Pancytopenia
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
Chronic R sided pleural effusion/hepatohydrothorax s/p chest tube 10/13/2023
Alcoholic cirrhosis, MELD 22
Hypertension
Distended gallbladder with mobile sludge without pericholecystic edema or Hickey sign
Hx of alcohol abuse - abstinent from EtOH for several months now
Thrombocytopenia � due to history of cirrhosis
Chronic anemia
Transaminitis with hyperbilirubinemia
Anal condyloma
Plan:
Currently on RA
No history of lung disease in distant past, never smoker
Had previous history of hepatic hydrothorax and hospitalization with chest tube placement in 2023.
He notes he had not followed with pulmonary following that discharge and has not yet followed with Transplant team.
Had called [facility] but did not get call back for visit.
He has appt on 03/22 but he had had recurrent admissions since then
CXR showing recurrent pleural effusion. Denies abdominal swelling.
Has been obtaining outpatient repeated taps as needed but this has not been working to avoid readmissions
This was as recent as 03/15 with 2L removed, he still did not feel relief -- within hours, felt SOB again
He admits that this is leading to poor QoL
We discussed transfer to [facility] for TIPS eval with primary service
Patient has been accepted
I had prolonged discussion with outpatient in terms of options and we discussed again wtih and team resident present
He understands his option to transfer to [facility] for eval, he has the option to consider transplant as it stands
He knows with 100% certainty that he would not want transplant at all, he is now not sure if he would proceed with TIPS but would like to keep his 03/22 visit for that determination
He wants to have an ASEPT in place understanding that this would eliminate his chance for transplant
This discussion was witnessed by team
He has declined transfer
We will consult IR for ASEPT placement--planning today
Drainage recs: 1L daily until fluid lessons, then can go every 2 days, then 3 days, then drop to 500mL
Hopeful d/c planning following placement
He has appt at [facility] for TIPS eval on 03/22
Can likely d/c tube following TIPS
OP FU in our office after [facility] eval
Data:
CXR 01/31/25-Moderate to large right pleural effusion, significantly increasing since most recent radiograph. Small left pleural effusion, new since previous radiograph.
CXR 10-16-2023: New findings suggesting mild right lower lobe pneumonia versus atelectasis. Considering the acute development, atelectasis is more likely. This film was taken during a limited inspiration. No visualized pneumothorax.
CXR 10-15-2023: Placement of right chest tube with significantly decreased right pleural fluid. No findings to confirm pneumothorax.
CXR 10-13-2023: Interval development of complete opacification right hemithorax with mass effect and shift of the mediastinum toward the left. Findings most likely represent a large right pleural effusion. Underlying mass and/or pneumonia is not
excluded radiographically.
CTA Chest 10-13-2023: Examination is nondiagnostic for pulmonary embolism. Very large right pleural effusion with mass effect and midline shift. Collapse of the right lung. No significant left pleural effusion. Small to moderate amount of ascites in
the visualized upper abdomen. Nodular external contour of the visualized liver, suggestive of cirrhosis. Splenomegaly is present, as seen on previous ultrasound of the abdomen. If there are persistent clinical symptoms highly suggestive of pulmonary
embolism after right-sided thoracentesis, a repeat CT examination with pulmonary embolism protocol could be performed.
ECHO 10/14/23- Technically difficult study - Lumason contrast used. Normal biventricular size and systolic function without regional wall motion abnormality. Estimated LVEF 60-65%. Mild concentric left ventricular hypertrophy. Aortic sclerosis
without stenosis. No prior study available for comparison.
Total time spent today was 51 minutes for this encounter. Time includes reviewing laboratory test/imaging results, reviewing pertinent medical records, obtaining and reviewing medical history, performing an appropriate exam, ordering medications,
tests and procedures. Time also includes documentation of this encounter, coordinating patient care and communicating with other healthcare professionals. Total time does not include separately billed tests performed on this date of service.
Subjective Data
-
Date of Service:
Date of Service: March 17, 2025
Chief Complaint: Pulmonary Follow Up
Subjective:
No new complaints, feels SOB now and awaiting tube placement
Sitting in chair, on RA
Objective Data
Data Reviewed
Vital Signs / I&O / Oxygen:
Vital Signs
Temp Pulse Resp BP Pulse Ox
97.6 F 88 20 105/53 93
03/17/25 06:45 03/17/25 08:56 03/17/25 06:45 03/17/25 08:56 03/17/25 06:45
Intake and Output
03/16/25 03/17/25 03/18/25
06:59 06:59 06:59
Intake Total 1260 / 1260
Balance 1260 / 1260
SaO2 93
Physical Exam
General: Respiratory Distress (mild, dyspneic with conversation) and Other (NAD)
HEENT: Normocephalic, Anicteric and Moist Mucous Membranes
Cardiovascular: S1-S2, Regular Rhythm and Peripheral Edema
Respiratory: Other (very decreased BS BL)
GI: Soft, Distended (fluid wave) and Non Tender
Neurology: Awake, Alert, Oriented and No Motor Deficits
Skin: Warm, Dry and Good Color
Labs/Micro/Reports
Lab Data
03/17/25 07:36
03/17/25 07:36
Laboratory Results
03/17/25
07:36
PT 19.5 H
INR 1.63
--- NOTE | 2025-03-17 09:30 | PN.CDI ---
CDI
- -
CDI:
Physician Documentation Request
Admit Date: 03/15/25 14:53
Dear Doctor Rosmery,
Patient admitted for hydrothorax.
03/16 Hospitalist PN: 'History of hypervolemic hyponatremia'
Laboratory Tests
03/15/25 03/16/25 03/17/25
12:08 06:50 07:36
Sodium 129 L 128 L 132 L
Based on the above, could you clarify in the progress notes, the appropriate diagnosis, if significant, that supports the above abnormalities and additional evaluation, monitoring and/or treatment rendered:
Hyponatremia, current for this admission
Hyponatremia, history of only
Other
Use of terms such as suspected, likely, concern for, or probable (associated with a specific diagnosis that is being evaluated, monitored, or treated as if it exists) are acceptable and can be coded in the inpatient setting, when documented at the
time of discharge.
Thank you,
Concepción Collins RN, BSN
CDI Specialist
Available via [facility] text
Please use your independent medical judgment in providing your response.
--- NOTE | 2025-03-17 14:20 | VNURNOTE ---
Home Health Liaison met with patient and sig other Laxmi at bedside to discuss [facility] nurse/therapy, visits, schedule and homebound status. Patient is agreeable and understands that visits at home will be 2-3 x per week to assess and teach medical
management. He plans to be home bound approx x 1 week. His sig other is agreeable to learn Asept drainage procedure. 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 [facility] was May [address] Chang. This author
confirmed that Pulm agreeable to sign for [facility] until pt follows up w/res clinic.
Sig other and pt are aware that [facility] will contact them for start of care within 1-2 days after discharge from . Liaison visit was cut short due to pt leaving floor for procedure. Spoke with Vidal at [facility]. Explained that plan is
for pt to be drained daily. Placement today. Requested extra bottles for pt. Vidal stated [facility] will get order form/paperwork and will overnight bottles. Per Vidal, should not need add'l bottles before shipment. He was NOT agreeable to provide.
[facility] referral completed in Care Port.
--- NOTE | 2025-03-17 14:45 | VNURNOTE ---
Addendum entered by Bella Parks RN 03/17/25 16:10:
Chart reviewed. Pt had thoracentesis only today- no Asept placed. Pt and sig other Laxmi aware that [facility] will reach out to him for start of care visit once Asept placed. Renee at [facility] Intake aware; will follow up for updates Mon.
Original Note:
Home Health Liaison met with patient and sig other Laxmi at bedside to discuss [facility] nurse[facility]therapy, visits, schedule and homebound status. Patient is agreeable and understands that visits at home will be 2-3 x per week to assess and teach medical
management. He plans to be home bound approx x 1 week. His sig other is agreeable to learn Asept drainage procedure. 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 Last attended appt at [facility] was May [address] Chang. This author
confirmed that Pulm agreeable to sign for VN until pt follows up w/res clinic.
Sig other and pt are aware that [facility] will contact them for start of care within 1-2 days after discharge from . Liaison visit was cut short due to pt leaving floor for procedure. Spoke with Vidal at [facility]. Explained that plan is
for pt to be drained daily. Placement today. Requested extra bottles for pt. Vidal stated once [facility] gets order form/paperwork, they will overnight bottles -either or Thursday. Per Vidal, should not need add'l bottles before shipment;
will receive in time. He was NOT agreeable to provide.
[facility] referral completed in Care Port.
--- NOTE | 2025-03-17 15:45 | CM ---
Pt has CT placed. Pt is agreeable to [facility] .
Plan: Home with [facility] with chest tube.
--- NOTE | 2025-03-17 17:01 | CM ---
TC to [place], spoke with Renee in Provider services.
Patient is covered for DME at 50% and has an out of Pocket maximum of $9200.
Info given to ANY/Anastasiia via TT.
--- NOTE | 2025-03-17 17:49 | CM ---
Pt did not get chest tube placed due to the cost of the cannisters. Pt will follow up at home with MD.
Plan: PT discharge home today. Home no needs
--- NOTE | 2025-03-17 18:10 | W.DCSUMMARY ---
Discharge Summary
Discharge Data
Date of Admission: 03/15/25
Date of Discharge: 03/17/25
-
Pending Results: No
Hospital Course
54yoM PMH cirrhosis, former AUD, HTN, recurrent hepatic hydrothorax presenting with recurrent hepatic hydrothorax, SOB and RLE swelling. Pt received an outpt thoracentesis Thursday. He presented to the ED SOB with RLE swelling Thursday. The
ED did a thoracentesis 2L out and admitted pt. He was kept on home doses of diuretics, aldactone and furosemide. He was once again SOB by the next morning but reported it was manageable. He had a RLE US negative for DVT, echo demonstrating no acute
abnormalities. Right lower extremity swelling likely sec related to ascites and cirrhosis. We set up a transfer for this pt to [facility] for TIPS/transplant evaluation since he was established with Dr. Shankar Schulz a year ago. A year ago pt was
eligible for both TIPS and transplant but was lost to follow up. At the given time, pt's MELD is too elevated for TIPS. [facility] [employer] metal shop foreman Dr. Schulz was willing to transfer pt for transplant evaluation given the repeated thoracenteses that have
increased in frequency, now multiple times a week. By , pt declined transfer and decided to pursue palliative approach offered to him by pulmonology of asept catheter to alleviate some of the SOB discomfort from the heptic
hydrothorax. Multiple providers thoroughly discussed the risks and prognosis associated with deciding to forgo transfer for the catheter. Pt demonstrated understanding with desire to proceed with asept including that this may exclude him from
tap/liver transplant eval or from procuring a liver transplant in the future.. Understands that this could shorten his life expectancy. Per case management and IR requires to have PleurX catheter devices at home, case management working on this with
visiting nurses. Pt received thoracentesis 03/17/25 1.4L removed, stopped early due to hypotension.
Scheduled for March [address] Rust in [place]
Recommend 3 times a week thoracentesis in order to bridge him over to TIPS/transplant
MELD score 19 on discharge.
Echo: 1. Normal left ventricular size and systolic function. Cannot comment on regional wall motion abnormality due to extensive endocardial border dropout.
2. Dilated right ventricle with normal systolic function.
3. Aortic sclerosis without stenosis. No regurgitation.
4. Right heart pressure could not be estimated.
5. Indirect comparison of the prior study on 10/14/2023, the quality of the prior study was better. However the findings are similar.
Discharge Plan
-
Patient Disposition: Home (Routine Discharge)
Discharge Diagnosis/Procedures: hepatic hydrothorax
Condition: Fair
Diet: As tolerated
Activity: As tolerated
Driving Restrictions: As prior to admission
Referrals:
hepatology [Other]
NONE,* [Family Provider, Internal Medicine]
Douglas Peck MD [Active, Pulmonary Medicine] - in one to two weeks
Additional Discharge Medication Instructions: Please see sheet metal shop foreman for discussion of future steps for treatment.
Please get thoracentesis Thursday and follow up with your colon therapist to begin outpatient process for asepts catheter to be placed in your chest.
Prescriptions:
Continued
olmesartan 20 mg Tablet
20 mg PO DAILY
thiamine HCl (vitamin B1) 100 mg tablet
100 mg PO DAILY
furosemide [Lasix] 20 mg tablet
60 mg PO DAILY
spironolactone [Aldactone] 25 mg tablet
50 mg PO DAILY
Discharge Orders:
Discharge Patient (As Directed); Ordered 03/17/25
Ordered By: Blanca Botello
Discharge Date and Time
Discharge Date/Time: 03/17/25 17:49
Print Language: SAMMARINESE
== END 2025-03-17 17:49 | disposition home or self-care (01) | DRG 187 ==
LOC: 4 EAST ACU 14:53
PROVIDERS: Radiology Diagnostic Radiology; Radiology Vascular & Interventional Radiology; ADMITTING PHYSICIAN Hospitalist; ATTENDING PHYSICIAN Hospitalist; CONSULT PHYSICIAN Internal Medicine; EMERGENCY PHYSICIAN Emergency Medicine
PROC: 0W993ZZ Drainage of Right Pleural Cavity, Percutaneous Approach (ICD-10-PCS; 2025-03-15)
DX: J94.8 Other specified pleural conditions (principal); D61.818 Other pancytopenia; E87.1 Hypo-osmolality and hyponatremia; I70.0 Atherosclerosis of aorta; I95.9 Hypotension, unspecified; I11.9 Hypertensive heart disease without heart failure; K70.31 Alcoholic cirrhosis of liver with ascites; A63.0 Anogenital (venereal) warts; D69.59 Other secondary thrombocytopenia; F10.21 Alcohol dependence, in remission; E78.00 Pure hypercholesterolemia, unspecified; Z79.899 Other long term (current) drug therapy
CPT/HCPCS: 32555; 71045; 80048; 80053; 80076; 85025; 85027; 85610; 85730; 93005; 93306; 93970; 93975; 99285; P9045

== ENCOUNTER → 2025-03-20 09:29 | Outpatient (REF) | payer OTHER, SELFPAY ==
[2025-03-20 09:45] VITALS: BP 114/58; BP_SYST 87
[2025-03-20 10:00] VITALS: BP 93/54; BP_SYST 70
== END ==
LOC: RADI 09:29
PROVIDERS: ATTENDING PHYSICIAN Internal Medicine Critical Care Medicine
DX: J90 Pleural effusion, not elsewhere classified (principal)
CPT/HCPCS: 32555; 71045

== ENCOUNTER → 2025-03-22 07:30 | Outpatient (REF) | payer OTHER, SELFPAY | LOC: RADI 07:30 | PROVIDERS: ATTENDING PHYSICIAN Internal Medicine | DX: J90 Pleural effusion, not elsewhere classified (principal) | CPT/HCPCS: 32555; 71045 ==

== ENCOUNTER → 2025-03-24 13:01 | Outpatient (REF) | payer OTHER, SELFPAY ==
[2025-03-24 13:30] VITALS: BP 127/71; BP_SYST 95
[2025-03-24 14:00] VITALS: BP 118/69; BP_SYST 90
== END ==
LOC: RADI 13:01
PROVIDERS: ATTENDING PHYSICIAN Internal Medicine
DX: J90 Pleural effusion, not elsewhere classified (principal)
CPT/HCPCS: 32555; 71045

== ENCOUNTER → 2025-03-27 06:59 | Outpatient (REF) | payer OTHER, SELFPAY ==
[2025-03-27 07:20] VITALS: BP 105/51; BP_SYST 92
[2025-03-27 07:45] VITALS: BP 107/50
--- NOTE | 2025-03-27 07:58 | PTCARENOTE ---
O2 sat 85-89%. Pt. refuses to put O2 on and refuses to go to the Emergency Room. Pt. wheeled out to waiting area on wheelchair to girlfriend
[2025-03-27 08:41] LABS: Hematocrit 36.4 % (39.0-52.0); Hemoglobin 11.5 g/dL (13.0-18.0); Mean Corp Hgb Conc. 31.6 g/dL (33.0-37.0); Mean Corpuscular Volume 81.6 fL (80.0-94.0); Nucleated Red Blood Cells % 0 % (-); Platelet Count 161 10^3/uL (130-400); Red Cell Dist. Width 22.4 % (11.5-14.5)
[2025-03-27 08:42] LABS: INR 1.62; PT 19.5 Sec (11.4-14.6)
[2025-03-27 09:07] LABS: ALT (SGPT) 47 U/L (0-50); AST (SGOT) 153 U/L (17-59); Albumin 2.9 g/dl (3.5-5.0); Alkaline Phosphatase 162 U/L (38-126); Blood Urea Nitrogen 35 mg/dl (9-20); Calcium 8.3 mg/dl (8.4-10.2); Carbon Dioxide 27 mmol/L (22-30); Chloride 102 mmol/L (98-107); Glucose 91 mg/dl (70-99); Potassium 4.4 mmol/L (3.5-5.1); Sodium 134 mmol/L (135-145); Total Protein 7.3 g/dl (6.3-8.2); eGFR > 60.00
[2025-03-27 09:49] LABS: Anisocytosis 1+; Hypochromasia 2+; Normal RBC Morphology No
[2025-03-27 21:49] LABS: AFP Male/Tumor Marker > 11000 ng/ml
== END ==
LOC: RADI 06:59
PROVIDERS: ATTENDING PHYSICIAN Internal Medicine; OTHER PHYSICIAN Internal Medicine Transplant Hepatology
DX: J90 Pleural effusion, not elsewhere classified (principal)
CPT/HCPCS: 32555; 36415; 71045; 80053; 82105; 85025; 85610

== ENCOUNTER → 2025-03-29 07:01 | Outpatient (REF) | payer OTHER, SELFPAY ==
[2025-03-29 07:20] VITALS: BP 124/69; BP_SYST 92
[2025-03-29 07:48] VITALS: BP 120/57
== END ==
LOC: RADI 07:01
PROVIDERS: ATTENDING PHYSICIAN Internal Medicine; OTHER PHYSICIAN Internal Medicine Transplant Hepatology
DX: J90 Pleural effusion, not elsewhere classified (principal); K74.60 Unspecified cirrhosis of liver
CPT/HCPCS: 32555; 71045; 74170; Q9967

== ENCOUNTER → 2025-03-31 07:05 | Outpatient (REF) | payer OTHER, SELFPAY ==
[2025-03-31 07:30] VITALS: BP 126/72; BP_SYST 97
== END ==
LOC: RADI 07:05
PROVIDERS: ATTENDING PHYSICIAN Internal Medicine
DX: J90 Pleural effusion, not elsewhere classified (principal)
CPT/HCPCS: 32555; 71045

== ENCOUNTER → 2025-04-03 06:53 | Outpatient (REF) | payer OTHER, SELFPAY ==
[2025-04-03 07:20] VITALS: BP 123/73; BP_SYST 96
[2025-04-03 07:45] VITALS: BP 111/63; BP_SYST 91
[2025-04-03 07:56] VITALS: BP 111/63
== END ==
LOC: RADI 06:53
PROVIDERS: ATTENDING PHYSICIAN Internal Medicine
DX: J90 Pleural effusion, not elsewhere classified (principal)
CPT/HCPCS: 32555; 71045

== ENCOUNTER → 2025-04-05 07:06 | Outpatient (REF) | payer OTHER, SELFPAY ==
[2025-04-05 07:40] VITALS: BP 124/73; BP_SYST 95
[2025-04-05 08:10] VITALS: BP 124/67
== END ==
LOC: RADI 07:06
PROVIDERS: ATTENDING PHYSICIAN Internal Medicine
DX: J90 Pleural effusion, not elsewhere classified (principal)
CPT/HCPCS: 32555; 71045

== ENCOUNTER → 2025-04-07 06:52 | Outpatient (REF) | payer OTHER, SELFPAY ==
[2025-04-07 07:20] VITALS: BP 121/71; BP_SYST 93
[2025-04-07 07:40] VITALS: BP 114/76; BP_SYST 90
[2025-04-07 07:46] VITALS: BP 114/76
== END ==
LOC: RADI 06:52
PROVIDERS: ATTENDING PHYSICIAN Internal Medicine
DX: J90 Pleural effusion, not elsewhere classified (principal)
CPT/HCPCS: 32555; 71045

== ENCOUNTER → 2025-04-10 06:58 | Outpatient (REF) | payer OTHER, SELFPAY ==
[2025-04-10 07:20] VITALS: BP 127/67; BP_SYST 92
[2025-04-10 07:50] VITALS: BP 118/60
== END ==
LOC: RADI 06:58
PROVIDERS: ATTENDING PHYSICIAN Internal Medicine
DX: J90 Pleural effusion, not elsewhere classified (principal)
CPT/HCPCS: 32555; 71045

== ENCOUNTER → 2025-04-12 06:58 | Outpatient (REF) | payer OTHER, SELFPAY ==
[2025-04-12 07:20] VITALS: BP 128/63; BP_SYST 91
[2025-04-12 07:44] VITALS: BP 117/59
== END ==
LOC: RADI 06:58
PROVIDERS: ATTENDING PHYSICIAN Internal Medicine
DX: J90 Pleural effusion, not elsewhere classified (principal)
CPT/HCPCS: 32555; 71045

== ENCOUNTER → 2025-04-14 07:02 | Outpatient (REF) | payer OTHER, SELFPAY ==
[2025-04-14 07:20] VITALS: BP 119/57; BP_SYST 93
[2025-04-14 07:45] VITALS: BP 110/57; BP_SYST 87
[2025-04-14 08:04] VITALS: BP 110/57
== END ==
LOC: RADI 07:02
PROVIDERS: ATTENDING PHYSICIAN Internal Medicine
DX: J90 Pleural effusion, not elsewhere classified (principal)
CPT/HCPCS: 32555; 71045

== ENCOUNTER → 2025-04-17 07:07 | Outpatient (REF) | payer OTHER, SELFPAY ==
[2025-04-17 07:19] VITALS: BP 123/67; BP_SYST 94
[2025-04-17 07:51] VITALS: BP 115/62
== END ==
LOC: RADI 07:07
PROVIDERS: ATTENDING PHYSICIAN Internal Medicine
DX: J90 Pleural effusion, not elsewhere classified (principal)
CPT/HCPCS: 32555; 71045

== ENCOUNTER → 2025-06-05 11:01 | Outpatient (REF) | payer OTHER, SELFPAY ==
[2025-06-05 11:15] VITALS: BP 118/63; BP_SYST 100
[2025-06-05 11:59] VITALS: BP 112/48
== END ==
LOC: RADI 11:01
PROVIDERS: ATTENDING PHYSICIAN Internal Medicine
DX: J90 Pleural effusion, not elsewhere classified (principal); J94.8 Other specified pleural conditions; C22.0 Liver cell carcinoma
CPT/HCPCS: 32555; 71045

== ENCOUNTER → 2025-06-07 14:06 | Outpatient (REF) | payer OTHER, SELFPAY ==
[2025-06-07 14:13] VITALS: BP 112/61; BP_SYST 102
[2025-06-07 14:52] VITALS: BP 106/54; BP_SYST 98
[2025-06-07 15:16] VITALS: BP 106/54
== END ==
LOC: RADI 14:06
PROVIDERS: ATTENDING PHYSICIAN Radiology Diagnostic Radiology
DX: J90 Pleural effusion, not elsewhere classified (principal); J94.8 Other specified pleural conditions
CPT/HCPCS: 32555; 71045